=== PATIENT | male | born 1960 | race Caucasian/White ===

== ENCOUNTER 2017-06-25 06:25 | Outpatient (CLI) | payer OTHER ==
[~2017-06-25] VITALS: Ht 185.4 cm; Wt 90.7 kg
[~2017-06-25 06:25] MED LIST: CPR500T PO; CRS350T PO; METH2.5T PO; METH4TAB PO; NAPR250T PO
[2017-06-25] MEDS ORDERED: NAPR500T4 PO (13:08)
[2017-06-25] MEDS ORDERED: ATOR40TA70 PO (13:08)
[2017-06-25] MEDS ORDERED: OXYC-197 PO (13:08)
[2017-06-25] MEDS ORDERED: TADA10TA PO (13:08)
== END 2017-06-25 13:13 ==
LOC: PREOP 06:25
PROVIDERS: ATTEND Surgery
DX: Z01.818 Encounter for other preprocedural examination (principal); Z12.11 Encounter for screening for malignant neoplasm of colon

== ENCOUNTER 2017-06-29 09:51 | Day surgery (SDC) | payer OTHER ==
[~2017-06-29] VITALS: Ht 185.4 cm; Wt 90.7 kg
[~2017-06-29 09:51] MED LIST changes: +ATOR40TA70 PO; +NAPR500T4 PO; +OXYC-197 PO; +TADA10TA PO
--- OUTSIDE RECORDS SUMMARY | 2017-06-29 09:54 | XMS REPORT ---
Author Author YOKO LADD Organization [employer] Address Unknown Phone Unavailable Care Team Providers Care Die Maintenance Technician Name Role Phone YOKO LADD CP Unavailable Allergies No Known Allergies Problems Problem Type Condition ICD-9 Code Onset Dates Condition Status Problem Nondependent tobacco use disorder 305.1 Active Problem Unspecified arthropathy, site unspecified 716.90 Active Problem Unspecified backache 724.5 Active Problem Chronic hepatitis C with hepatic coma 070.44 Active Problem Pain in joint, site unspecified 719.40 Active Problem Rheumatoid arthritis 714.0 Active Medications No Known Medications Results No Known Results Summary Purpose [employer] Submission
--- OUTSIDE RECORDS SUMMARY | 2017-06-29 09:54 | XMS REPORT ---
Author Author YOKO LADD Organization [employer] Address Unknown Phone Unavailable Care Team Providers Care Kennel Manager Name Role Phone YOKO LADD CP Unavailable Allergies, Adverse Reactions, Alerts Substance Reaction Event Type N.K.D.A. Info Not Available Non Drug Allergy Problems Problem Type Condition Code Onset Dates Condition Status Assessment Chest wall pain R07.89 Active Assessment Rheumatoid arthritis involving multiple sites with positive rheumatoid factor M05.79 Active Problem Unspecified backache 724.5 Active Problem Nondependent tobacco use disorder 305.1 Active Problem Rheumatoid arthritis involving multiple sites with positive rheumatoid factor M05.79 Active Problem Rheumatoid arthritis 714.0 Active Problem Chronic hepatitis C with hepatic coma 070.44 Active Problem Unspecified arthropathy, site unspecified 716.90 Active Problem Pain in joint, site unspecified 719.40 Active Medications Medication Code System Code Instructions Start Date End Date Status Dosage Oxycodone-Acetaminophen [facility] [address]-47 5-325 MG Orally 3 times a day Aug 18, 2016 1 tablet Naprosyn [facility] [address]-39 500 MG Twice a day May 14, 2014 1 tablet by Oral route 2 times per day Methotrexate [facility] [address]-27 2.5 MG Orally weekly Aug 18, 2016 4 Procedures Procedure Coding System Code Date Office Visit, Est Pt., Level 3 CPT-4 39845 Aug 18, 2016 MEASURE BLOOD OXYGEN LEVEL CPT-4 93396 Aug 18, 2016 Vital Signs Date/Time: Aug 18, 2016 Cardiac Monitoring Heart Rate 64 bpm Weight 204.1 lbs Height 73 in BMI 26.92 Index Oximetry 98 % Blood Pressure Diastolic 80 mmHg Blood Pressure Systolic 126 mmHg Results No Known Results Summary Purpose [employer] Submission
[2017-06-29] MEDS ORDERED: LACTATED RINGERS 1,000 ML IV STA (10:00)
[2017-06-29 10:14] VITALS: BP 146/91
[2017-06-29] MEDS ORDERED: proPOfol 200 MG/20 ML (DIPRIVAN) VIAL IV ONE (12:44)
[2017-06-29] MEDS ORDERED: MIDAZOLAM 2 MG/2 ML (VERSED) VIAL ONE ×2 (12:45→13:16)
--- NOTE | 2017-06-29 13:12 | Progress Note-Pre Operative ---
Pre-Operative Progress Note H&P Reviewed The H&P was reviewed, patient examined and no changes noted. Date Seen by Provider: Jun 29, 2017 Time Seen by Provider: 13:12 Date H&P Reviewed: Jun 29, 2017 Time H&P Reviewed: 13:12 Pre-Operative Diagnosis: screening colonoscopy COOKIE SANZ DO Jun 29, 2017 13:12
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
--- NOTE | 2017-06-29 13:52 | Discharge Inst-Simple/Standard ---
Discharge Inst-Standard Patient Instructions/Follow Up Plan of Care/Instructions/FU: 2 weeks gonzalez Activity as Tolerated: Yes Discharge Diet: Regular Diet COOKIE SANZ DO Jun 29, 2017 13:52
[2017-06-29 14:05] VITALS: BP 131/88
[2017-06-29 14:34] VITALS: BP 134/84
[2017-06-29 14:35] VITALS: BP 134/84
--- NOTE | 2017-06-30 04:39 | OPERATIVE REPORT ---
DATE OF SERVICE: 06/29/2017 PREOPERATIVE DIAGNOSIS: Screening colonoscopy. POSTOPERATIVE DIAGNOSIS: Colon polyp, splenic flexure and rectal polyp. PROCEDURE: Colonoscopy with hot biopsy polypectomy. SURGEON: Cookie Torres DO ANESTHESIA: Per MDA. ESTIMATED BLOOD LOSS: None. COMPLICATIONS: None. INDICATIONS: The patient is a 57-year-old male due for screening colonoscopy. He understands risks and benefits of procedure and wished to proceed with procedure. Consent was signed in the chart. PROCEDURE: The patient was taken to the endoscopy suite, placed in left lateral recumbent position. Timeout was performed. Digital rectal exam was performed and there were no palpable polyps, mass or ulcerations. The scope was inserted in the rectum and advanced all the way to the cecum with minimal difficulty. Prep was adequate. Scope was then slowly retracted. No polyps, mass or ulcerations within the cecum, ascending and transverse colon except for the splenic flexure, a small polyp was present, for which hot biopsy polypectomy was performed. Scope was continued to be slowly retracted back. There were no polyps, masses or ulcerations within the descending colon and sigmoid colon. Within the rectum a small rectal polyp was present, for which hot biopsy polypectomy was performed. Scope was retroflexed noting no other pathology. Scope was returned to its normal position, slowly withdrawn until completely removed. The patient tolerated procedure well without any complications. He was taken to the recovery room in stable condition. RECOMMENDATIONS: The patient will need repeat colonoscopy in 5 years. If he has any problems prior to that, he should be reevaluated at that time. The patient will follow up in the office in approximately 2 weeks to discuss pathology results. Job ID: [id number] DocumentID: [id number] Dictated Date: 06/29/2017 13:54:44 Community Engagement Manager Date: 06/30/2017 04:38:53 Dictated By: COOKIE TORRES DO
== END 2017-06-29 14:35 | disposition home or self-care (01) ==
LOC: ENDO 09:51
PROVIDERS: ATTEND Surgery
DX: Z12.11 Encounter for screening for malignant neoplasm of colon; K62.1 Rectal polyp; D12.3 Benign neoplasm of transverse colon; F17.210 Nicotine dependence, cigarettes, uncomplicated
CPT/HCPCS: 88305

== ENCOUNTER 2019-07-29 19:41 | Emergency (ER) | payer OTHER ==
[~2019-07-29] VITALS: Ht 182.8 cm; Wt 88.6 kg
[~2019-07-29 19:41] MED LIST changes: +NAPR-915 PO; -NAPR500T4 PO; -OXYC-197 PO; +OXYC1TAB87 PO
[2019-07-29] MEDS ORDERED: NS IV 1000 ML 1,000 ML IV SCH (19:52)
[2019-07-29] MEDS ORDERED: TETANUS,DIPTH,PERTUSS P/F (BOOSTRIX) 0.5 ML VIAL IM ONE (20:00)
[2019-07-29] MEDS ORDERED: ceFAZolin INJECTION 1,000 MG in WATER (STERILE) FOR INJECTION 10 ML IV ONE (20:00)
[2019-07-29 20:08] LABS: HEMOGLOBIN 12.7 G/DL (13.3-17.7); MEAN PLATELET VOLUME 8.6 FL (7.4-10.4); RED CELL DISTRIBUTION WIDTH 14.3 % (10.0-14.5); WHITE BLOOD COUNT 10.3 10^3/uL (4.3-11.0)
--- NOTE | 2019-07-29 20:08 | NUR ---
Dr. Murcia in family room updating family on current pt status. Pt belongings given to pt , Courtney.
[2019-07-29 20:22] LABS: ALANINE AMINOTRANSFERASE 209 U/L (0-55); ALBUMIN 3.8 GM/DL (3.2-4.5); ALKALINE PHOSPHATASE 76 U/L (40-136); BILIRUBIN,DIRECT 0.2 MG/DL (0.0-0.3); BILIRUBIN,INDIRECT 0.4 MG/DL; BILIRUBIN,TOTAL 0.6 MG/DL (0.1-1.0); BUN/CREATININE RATIO 15; CALCIUM 8.3 MG/DL (8.5-10.1); CARBON DIOXIDE 20 MMOL/L (21-32); CHLORIDE 105 MMOL/L (98-107); CREATINE KINASE 221 U/L (30-200); CREATININE SERUM 0.97 MG/DL (0.60-1.30); GFR ESTIMATED > 60; GLUCOSE 105 MG/DL (70-105); PHOSPHORUS 3.4 MG/DL (2.3-4.7); POTASSIUM 3.4 MMOL/L (3.6-5.0); SODIUM 139 MMOL/L (135-145)
[2019-07-29 20:36] LABS: FIBRIN DEGRADATION PRODUCTS 12.33 UG/ML (0.00-0.49); INR 1.1 (0.8-1.4); PROTHROMBIN TIME PATIENT 14.8 SEC (12.2-14.7)
[2019-07-29 20:37] LABS: BILIRUBIN,URINE NEGATIVE (NEGATIVE); CLARITY,URINE CLEAR; COLOR,URINE YELLOW; GLUCOSE, URINE (UA) NEGATIVE (NEGATIVE); KETONES,URINE NEGATIVE (NEGATIVE); LEUKOCYTE ESTERASE ,URINE NEGATIVE (NEGATIVE); NITRITE,URINE NEGATIVE (NEGATIVE); PH,URINE 7 (5-9); PROTEIN,URINE 3+ (NEGATIVE)
[2019-07-29] MEDS ORDERED: fentaNYL INJECTION 100 MCG/2 ML AMP ONE (20:37)
[2019-07-29] MEDS ORDERED: fentaNYL INJECTION 100 MCG/2 ML AMP IVP STA (20:46)
[2019-07-29 20:47] LABS: BACTERIA,URINE NEGATIVE /HPF
[2019-07-29 20:56] LABS: AMPHETAMINE SCREEN, URINE NEGATIVE (NEGATIVE); BARBITURATE SCREEN URINE NEGATIVE (NEGATIVE); BENZODIAZEPINES SCREEN URINE NEGATIVE (NEGATIVE); CANNABINOID SCREEN, URINE NEGATIVE (NEGATIVE); COCAINE SCREEN URINE NEGATIVE (NEGATIVE); METHADONE STAT NEGATIVE (NEGATIVE); METHAMPHETAMINE SCREEN URINE S NEGATIVE (NEGATIVE); OPIATE SCREEN URINE NEGATIVE (NEGATIVE); OXYCODONE STAT NEGATIVE (NEGATIVE); PROPOXYPHENE STAT NEGATIVE (NEGATIVE); TRICYCLIC ANTIDEPRESSANTS SCRE NEGATIVE (NEGATIVE)
[2019-07-29] MEDS ORDERED: fentaNYL INJECTION 100 MCG/2 ML AMP IVP ONE (21:00)
--- NOTE | 2019-07-29 21:01 | NUR ---
Pt report called to BC Meneses @ [facility]. Upon arrival pt to room [facility].
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
[2019-07-29 21:25] VITALS: BP 135/93
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
[2019-07-30] MEDS ORDERED: IOHEXOL 350 MG/ML 100 ML (OMNIPAQUE 350) VIAL IV ONE (08:30)
[2019-07-30] MEDS ORDERED: NS 100 ML (IVPB) BAG IV ONE (08:30)
[2019-08-14] MEDS ORDERED: OXC5T PO (09:00)
[2019-08-14] MEDS ORDERED: SENN-20 PO (09:00)
--- OUTSIDE RECORDS SUMMARY | 2019-08-21 18:37 | XMS REPORT ---
Author Author YOKO LADD POS Organization [facility] SP Address [address] [place] [address] SP Care Team Providers Care Chairman And Ceo Name Role Phone POS YOKO LADD Unavailable SP PROBLEMS Type Condition ICD9-CM Code BUH65-RH Code Onset Dates Condition S tatus SNOMED POS Problem Erectile dysfunction due to diseases classified elsewhere N52.1 POS [id number] SP Problem Mixed hyperlipidemia E78.2 Active [id number] SP Problem Rheumatoid arthritis involvi ng multiple sites with positive rheumatoid SP M05.79 Active [id number] SP Problem Cigarette nicotine dependence without complication F17.210 Active SP ALLERGIES No Information ENCOUNTERS Encounter Location Date Diagnosis POS [facility] [address] [id number] [address] [place] [id number] SP May, SP [facility] [address] [facility] [id number] [address] [place] [id number] SP May, Rheumatoid arthritis involvi ng multiple sites with positive SP factor M05.79 and Erectile dysfunction due to diseases classified elsewhere N52.1 [facility] [address] [id number] [address] [place] [address] SP Oct, Chest pain R07.9 SP [facility] [address] [id number] [address] [place] [address] SP Oct, Chest wall pain R07.89 SP [facility] [address] [id number] [address] [place] [id number] SP Apr, Rheumatoid arthritis involvi ng multiple sites with positive SP factor M05.79 and Mixed hyperlipidemia E78.2 [facility] [address] [id number] [address] [place] [phone] SP May, Mixed hyperlipidemia E78.2 SP [facility] [address] [facility] [id number] [address] [place] [address] SP May, Mixed hyperlipidemia E78.2 ; Rheumatoid arthritis involving SP sites with positive rheumatoid factor M05.79 ; Erectile dysfunction due to diseases classified elsewhere N52.1 ; Routine adult health maintenance Z00.00 and Cigarette nicotine dependence without complication F17.210 [facility] [address] [facility] [id number] [address] [place] [phone] SP Aug, SP [facility] [address] [facility] [id number] [address] [place] [id number] SP Aug, Chest wall pain R07.89 and R heumatoid arthritis involving SP sites with positive rheumatoid factor M05.79 [facility] [address] [facility] [id number] [address] [place] [id number] SP Jun, Rheumatoid arthritis 714.0 a nd Chronic hepatitis C with hepatic SP 070.44 [facility] [address] [facility] [id number] [address] [place] [address] SP Jun, SP [facility] [address] [facility] [id number] [address] [place] [phone] SP Jan, SP [facility] [address] [facility] [id number] [address] [place] [phone] SP Jan, SP [facility] [address] [facility] [id number] [address] [place] [phone] SP Sep, SP [facility] [address] [facility] [id number] [address] [place] [phone] SP Sep, SP [facility] [address] [facility] [id number] [address] [place] [phone] SP Sep, SP [facility] [address] [facility] [id number] [address] [place] [phone] SP Sep, SP [facility] [address] [facility] [id number] [address] [place] [phone] SP May, SP [facility] [address] [id number] [address] [place] [address], [place] [address] SP May, SP [facility] [address] [id number] [address] [place] [address], [place] [address] SP Mar, SP [facility] [address] [id number] [address] [place] [address], [place] [address] SP Mar, SP [facility] [address] [id number] [address] [place] [address], [place] [address] SP Mar, SP [facility] [address] [id number] [address] [place] [address], [place] [address] SP February, SP [facility] [address] [id number] [address] [place] [address], [place] [address] SP February, SP [facility] [address] [id number] [address] [place] [address], [place] [address] SP February, SP [facility] [address] [id number] [address] [place] [address], [place] [address] SP February, SP [facility] [address] [id number] [address] [place] [address], [place] [address] SP Oct, SP [facility] [address] [id number] [address] [place] [address], [place] [address] SP Oct, SP [facility] [address] [id number] [address] [place] [address], [place] [address] SP Sep, SP [facility] [address] [id number] [address] [place] [address], [place] [address] SP Sep, SP [facility] [address] [id number] [address] [place] [address], [place] [address] SP Jul, SP [facility] [address] [id number] [address] [place] [address], [place] [address] SP Jul, SP [facility] [address] [id number] [address] [place] [address], [place] [id number] SP Jul, SP [facility] [address] [id number] [address] [place] [address], [place] [address] SP Jul, SP [facility] [address] [id number] [address] [place] [address], [place] [address] SP May, SP [facility] [address] [id number] [address] [place] [address], [place] [address] SP May, SP [facility] [address] [id number] [address] [place] [address], [place] [address] SP May, SP [facility] [address] [id number] [address] [place] [address], [place] [address] SP May, SP [facility] [address] [id number] [address] [place] [address], [place] [address] SP May, SP [facility] [address] [id number] [address] [place] [address], [place] [address] SP Mar, SP [facility] [address] [id number] [address] [place] [address], [place] [address] SP Mar, SP [facility] [address] [id number] [address] [place] [address], [place] [address] SP Dec, SP [facility] [address] [id number] [address] [place] [address], [place] [address] SP Dec, SP [facility] [address] [id number] [address] [place] [address], [place] [address] SP Dec, SP [facility] [address] [id number] [address] [place] [address], [place] [address] SP Dec, SP [facility] [address] [id number] [address] [place] [address], [place] [address] SP Nov, SP [facility] [address] [id number] [address] [place] [address], [place] [address] SP Nov, SP [facility] [address] [id number] [address] [place] [address], [place] [address] SP Nov, 2012 SP [facility] [address] [id number] [address] [place] [address], [place] [address] SP 12 Nov, 2012 SP [facility] [address] [id number] [address] [place] [address], [place] [address] SP 14 Oct, 2012 SP [facility] [address] [id number] [address] [place] [address], [place] [address] SP Oct, SP [facility] [address] [id number] [address] [place] [address], [place] [address] SP Sep, SP [facility] [address] [id number] [address] [place] [address], [place] [address] SP Sep, SP [facility] [address] [id number] [address] [place] [address], [place] [address] SP Sep, SP [facility] [address] [id number] [address] [place] [address], [place] [address] SP Sep, SP [facility] [address] [id number] [address] [place] [address], [place] [address] SP Sep, SP [facility] [address] [id number] [address] [place] [address], [place] [address] SP Sep, SP [facility] [address] [id number] [address] [place] [address], [place] [address] SP Sep, SP [facility] [address] [id number] [address] [place] [address], [place] [address] SP Sep, SP [facility] [address] [id number] [address] [place] [address], [place] [address] SP Sep, SP [facility] [address] [id number] [address] [place] [address], [place] [address] SP Sep, SP [facility] [address] [id number] [address] [place] [address], [place] [address] SP Sep, SP [facility] [address] [id number] [address] [place] [address], [place] [address] SP Sep, SP [facility] [address] [id number] [address] [place] [address], [place] [address] SP Aug, SP [facility] [address] [id number] [address] [place] [address], [place] [address] SP Aug, SP [facility] [address] [id number] [address] [place] [address], [place] [address] SP Aug, SP [facility] [address] [id number] [address] [place] [address], [place] [address] SP Aug, SP [facility] [address] [id number] [address] [place] [address], [place] [address] SP Aug, SP [facility] [address] [id number] [address] [place] [address], [place] [address] SP Jul, SP [facility] [address] [id number] [address] [place] [address], [place] [address] SP Jul, SP [facility] [address] [id number] [address] [place] [address], [place] [address] SP Jul, SP [facility] [address] [id number] [address] [place] [address], [place] [address] SP Jul, SP [facility] [address] [id number] [address] [place] [address], [place] [address] SP Jul, SP [facility] [address] [id number] [address] [place] [phone] SP Jul, SP [facility] [address] [id number] [address] [place] [address], [place] [address] SP Jun, SP [facility] [address] [id number] [address] [place] [address], [place] [address] SP May, SP [facility] [address] [id number] [address] [place] [address], [place] [address] SP May, SP [facility] [address] [id number] [facility] [address] SP Apr, SP [facility] [address] [id number] [address] [place] [address], [place] [address] SP Apr, SP [facility] [address] [id number] [address] [place] [address], [place] [address] SP Apr, SP [facility] [address] [id number] [address] [place] [address], [place] [address] SP Apr, SP [facility] [address] [id number] [address] [place] [address], [place] [address] SP Mar, SP [facility] [address] [id number] [address] [place] [address], [place] [address] SP Mar, SP [facility] [address] [id number] [address] [place] [address], [place] [address] SP February, SP [facility] [address] [id number] [address] [place] [address], [place] [address] SP February, SP [facility] [address] [id number] [address] [place] [address], [place] [address] SP February, SP [facility] [address] [id number] [address] [place] [address], [place] [address] SP Jan, SP [facility] [address] [id number] [address] [place] [address], [place] [address] SP Jan, SP [facility] [address] [id number] [address] [place] [address], [place] [address] SP Dec, SP [facility] [address] [id number] [address] [place] [address], [place] [address] SP Dec, SP [facility] [address] [id number] [address] [place] [address], [place] [address] SP Dec, SP [facility] [address] [id number] [address] [place] [address], [place] [address] SP Dec, SP [facility] [address] [id number] [address] [place] [address], [place] [address] SP Nov, SP [facility] [address] [id number] [address] [place] [address], [place] [address] SP Nov, SP [facility] [address] [id number] [address] [place] [address], [place] [address] SP Oct, SP [facility] [address] [id number] [address] [place] [address], [place] [address] SP Oct, SP [facility] [address] [id number] [address] [place] [address], [place] [address] SP Oct, SP [facility] [address] [id number] [address] [place] [address], [place] [address] SP Oct, SP [facility] [address] [id number] [address] [place] [address], [place] [address] SP Oct, SP [facility] [address] [id number] [address] [place] [address], [place] [address] SP Oct, SP [facility] [address] [id number] [address] [place] [address], [place] [address] SP Oct, SP [facility] [address] [id number] [address] [place] [address], [place] [address] SP Oct, SP [facility] [address] [id number] [address] [place] [address], [place] [address] SP Oct, SP [facility] [address] [id number] [address] [place] [address], [place] [address] SP Sep, SP [facility] [address] [id number] [address] [place] [address], [place] [address] SP Sep, SP [facility] [address] [id number] [address] [place] [address], [place] [address] SP Sep, SP [facility] [address] [id number] [address] [place] [address] SP Apr, SP [facility] [address] [facility] [id number] [address] [address] SP February, SP [facility] [address] [facility] [id number] [address] [place] [id number] SP February, SP IMMUNIZATIONS No Known Immunizations SOCIAL HISTORY Never Assessed REASON FOR VISIT PLAN OF CARE VITAL SIGNS Height 73 in 2014-05-14 POS Weight 190.6 lbs 2014-05-14 POS Temperature 98.6 degrees Fahrenheit 2014-05-14 POS Heart Rate 88 bpm 2014-05-14 POS Respiratory Rate 18 2014-05-14 POS Blood pressure systolic 126 mmHg 2014-05-14 POS Blood pressure diastolic 78 mmHg 2014-05-14 POS MEDICATIONS Unknown Medications RESULTS No Results PROCEDURES No Known procedures INSTRUCTIONS MEDICATIONS ADMINISTERED No Known Medications MEDICAL (GENERAL) HISTORY Type Description Date POS Medical History chronic pain SP Medical History Arthritis SP Surgical History No know Surgical history SP Hospitalization History liver abscess SP
--- OUTSIDE RECORDS SUMMARY | 2019-08-21 18:37 | XMS REPORT ---
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 Name Role Phone POS CHAD JENKINS Unavailable SP PROBLEMS Type Condition ICD9-CM Code [id number] Code Onset Dates Condition S tatus SNOMED POS Problem Erectile dysfunction due to diseases classified elsewhere N52.1 POS [id number] SP Problem Mixed hyperlipidemia E78.2 Active [id number] SP Problem Rheumatoid arthritis involvi ng multiple sites with positive rheumatoid SP M05.79 Active [id number] SP Problem Cigarette nicotine dependence without complication F17.210 Active SP ALLERGIES No Information ENCOUNTERS Encounter Location Date Diagnosis POS [facility] [address] [facility] [id number] [address] [place] [id number] SP May, SP [facility] [address] [facility] [id number] [address] [place] [address] SP Oct, Chest pain R07.9 SP [facility] [address] [facility] [id number] [address] [place] [address] SP Oct, Chest wall pain R07.89 SP [facility] [address] [facility] [id number] [address] [place] [address] SP Apr, Rheumatoid arthritis involvi ng multiple sites with positive SP factor M05.79 and Mixed hyperlipidemia E78.2 [facility] [address] [facility] [id number] [address] [place] [id number] SP May, Mixed hyperlipidemia E78.2 SP [facility] [address] [facility] [id number] [address] [place] [address] SP May, Mixed hyperlipidemia E78.2 ; Rheumatoid arthritis involving SP sites with positive rheumatoid factor M05.79 ; Erectile dysfunction due to diseases classified elsewhere N52.1 ; Routine adult health maintenance Z00.00 and Cigarette nicotine dependence without complication F17.210 [facility] [address] [facility] [id number] [address] [place] [id number] SP Aug, SP [facility] [address] [facility] [id number] [address] [place] [address] SP Aug, Chest wall pain R07.89 and R heumatoid arthritis involving SP sites with positive rheumatoid factor M05.79 [facility] [address] [facility] [id number] [address] [place] [address] SP Jun, Rheumatoid arthritis 714.0 a nd Chronic hepatitis C with hepatic SP 070.44 [facility] [address] [facility] [id number] [address] [place] [id number] SP Jun, SP [facility] [address] [facility] [id number] [address] [place] [address] SP 14 Jan, 2015 SP [facility] [address] [facility] [id number] [address] [place] [address] SP Jan, SP [facility] [address] [facility] [id number] [address] [place] [address] SP Sep, SP [facility] [address] [facility] [id number] [address] [place] [address] SP Sep, SP [facility] [address] [facility] [id number] [address] [place] [phone] SP Sep, SP [facility] [address] [facility] [id number] [address] [place] [address] SP Sep, SP [facility] [address] [facility] [id number] [address] [place] [phone] SP May, SP [facility] [address] [facility] [id number] [address] [place] [phone] SP May, SP [facility] [address] [facility] [id number] [address] [place] [address] SP Mar, SP [facility] [address] [id number] [address] [place] [address], [place] [address] SP Mar, SP [facility] [address] [id number] [address] [place] [address], [place] [address] SP Mar, SP [facility] [address] [id number] [address] [place] [address], [place] [address] SP February, SP [facility] [address] [id number] [address] [place] [address], [place] [address] SP February, SP [facility] [address] [id number] [address] [place] [address], [place] [address] SP February, SP [facility] [address] [id number] [address] [place] [address], [place] [address] SP February, SP [facility] [address] [id number] [address] [place] [address], [place] [address] SP Oct, SP [facility] [address] [id number] [address] [place] [address], [place] [address] SP Oct, SP [facility] [address] [id number] [address] [place] [address], [place] [address] SP Sep, SP [facility] [address] [id number] [address] [place] [address], [place] [address] SP Sep, SP [facility] [address] [id number] [address] [place] [address], [place] [address] SP Jul, SP [facility] [address] [id number] [address] [place] [address], [place] [address] SP Jul, SP [facility] [address] [id number] [address] [place] [address], [place] [address] SP Jul, SP [facility] [address] [id number] [address] [place] [address], [place] [address] SP Jul, SP [facility] [address] [id number] [address] [place] [address], [place] [address] SP May, SP [facility] [address] [id number] [address] [place] [address], [place] [address] SP May, SP [facility] [address] [id number] [address] [place] [address], [place] [address] SP May, SP [facility] [address] [id number] [address] [place] [address], [place] [address] SP May, SP [facility] [address] [id number] [address] [place] [address], [place] [address] SP May, SP [facility] [address] [id number] [address] [place] [address], [place] [address] SP Mar, SP [facility] [address] [id number] [address] [place] [address], [place] [address] SP Mar, SP [facility] [address] [id number] [address] [place] [address], [place] [address] SP Dec, SP [facility] [address] [id number] [address] [place] [address], [place] [address] SP Dec, SP [facility] [address] [id number] [address] [place] [address], [place] [address] SP Dec, SP [facility] [address] [id number] [address] [place] [address], [place] [address] SP Dec, SP [facility] [address] [id number] [address] [place] [address], [place] [address] SP Nov, SP [facility] [address] [id number] [address] [place] [address], [place] [address] SP Nov, SP [facility] [address] [id number] [address] [place] [address], [place] [address] SP Nov, SP [facility] [address] [id number] [address] [place] [address], [place] [address] SP Nov, SP [facility] [address] [id number] [address] [place] [address], [place] [address] SP 14 Oct, 2012 SP [facility] [address] [id number] [address] [place] [address], [place] [address] SP Oct, SP [facility] [address] [id number] [address] [place] [address], [place] [address] SP Sep, SP [facility] [address] [id number] [address] [place] [address], [place] [address] SP 18 Sep, 2012 SP [facility] [address] [id number] [address] [place] [address], [place] [address] SP 17 Sep, 2012 SP [facility] [address] [id number] [address] [place] [address], [place] [address] SP 15 Sep, 2012 SP [facility] [address] [id number] [address] [place] [address], [place] [address] SP Sep, SP [facility] [address] [id number] [address] [place] [address], [place] [address] SP Sep, SP [facility] [address] [id number] [address] [place] [address], [place] [address] SP Sep, SP [facility] [address] [id number] [address] [place] [address], [place] [address] SP Sep, SP [facility] [address] [id number] [address] [place] [address], [place] [address] SP Sep, SP [facility] [address] [id number] [address] [place] [address], [place] [address] SP Sep, SP [facility] [address] [id number] [address] [place] [address], [place] [address] SP Sep, SP [facility] [address] [id number] [address] [place] [address], [place] [address] SP Sep, SP [facility] [address] [id number] [address] [place] [address], [place] [address] SP Aug, SP [facility] [address] [id number] [address] [place] [address], [place] [address] SP Aug, SP [facility] [address] [id number] [address] [place] [address], [place] [address] SP Aug, SP [facility] [address] [id number] [address] [place] [address], [place] [address] SP Aug, SP [facility] [address] [id number] [address] [place] [address], [place] [address] SP Aug, SP [facility] [address] [id number] [address] [place] [address], [place] [address] SP Jul, SP [facility] [address] [id number] [address] [place] [address], [place] [address] SP Jul, SP [facility] [address] [id number] [address] [place] [address], [place] [address] SP Jul, SP [facility] [address] [id number] [address] [place] [address], [place] [address] SP Jul, SP [facility] [address] [id number] [address] [place] [address], [place] [address] SP Jul, SP [facility] [address] [id number] [address] [place] [address], [place] [address] SP Jul, SP [facility] [address] [id number] [address] [place] [address], [place] [address] SP Jun, SP [facility] [address] [id number] [address] [place] [address], [place] [address] SP May, SP [facility] [address] [id number] [address] [place] [address], [place] [address] SP May, SP [facility] [address] [id number] [address] [place] [address], [place] [address] SP Apr, SP [facility] [address] [id number] [address] [place] [address], [place] [address] SP Apr, SP [facility] [address] [id number] [address] [place] [address], [place] [address] SP Apr, SP [facility] [address] [id number] [address] [place] [address], [place] [address] SP Apr, SP [facility] [address] [id number] [address] [place] [address], [place] [address] SP Mar, SP [facility] [address] [id number] [address] [place] [address], [place] [address] SP Mar, SP [facility] [address] [id number] [address] [place] [address], [place] [address] SP February, SP [facility] [address] [id number] [address] [place] [address], [place] [address] SP February, SP [facility] [address] [id number] [address] [place] [address], [place] [address] SP February, SP [facility] [address] [id number] [address] [place] [address], [place] [address] SP Jan, SP [facility] [address] [id number] [address] [place] [address], [place] [address] SP Jan, SP [facility] [address] [id number] [address] [place] [address], [place] [address] SP Dec, SP [facility] [address] [id number] [address] [place] [address], [place] [address] SP Dec, SP [facility] [address] [id number] [address] [place] [address], [place] [address] SP Dec, SP [facility] [address] [id number] [address] [place] [address], [place] [address] SP Dec, SP [facility] [address] [id number] [address] [place] [address], [place] [address] SP Nov, SP [facility] [address] [id number] [address] [place] [address], [place] [address] SP Nov, SP [facility] [address] [id number] [address] [place] [address], [place] [address] SP Oct, SP [facility] [address] [id number] [address] [place] [address], [place] [address] SP Oct, SP [facility] [address] [id number] [address] [place] [address], [place] [address] SP Oct, SP [facility] [address] [id number] [address] [place] [address], [place] [address] SP Oct, SP [facility] [address] [id number] [address] [place] [address], [place] [address] SP Oct, SP [facility] [address] [id number] [address] [place] [address], [place] [address] SP Oct, SP [facility] [address] [id number] [address] [place] [address], [place] [address] SP Oct, SP [facility] [address] [id number] [address] [place] [address], [place] [address] SP Oct, SP [facility] [address] [id number] [address] [place] [address], [place] [address] SP Oct, SP [facility] [address] [id number] [address] [place] [address], [place] [address] SP Sep, SP [facility] [address] [id number] [address] [place] [address], [place] [address] SP Sep, SP [facility] [address] [id number] [address] [place] [address], [place] [address] SP Sep, SP [facility] [address] [id number] [address] [place] [address], [place] [address] SP Apr, SP [facility] [address] [id number] [address] [place] [address], [place] [address] SP February, SP [facility] [address] [facility] [id number] [address] [place] [address] SP February, SP IMMUNIZATIONS No Known Immunizations SOCIAL HISTORY Never Assessed REASON FOR VISIT PLAN OF CARE VITAL SIGNS MEDICATIONS Unknown Medications RESULTS No Results PROCEDURES No Known procedures INSTRUCTIONS MEDICATIONS ADMINISTERED No Known Medications MEDICAL (GENERAL) HISTORY Type Description Date POS Medical History chronic pain SP Medical History Arthritis SP Surgical History No know Surgical history SP Hospitalization History liver abscess SP
--- OUTSIDE RECORDS SUMMARY | 2019-08-21 18:37 | XMS REPORT ---
Author Author CHAD JENKINS POS Organization [facility] SP Address [address] [place] [address] SP Care Team Providers Care District Representative Name Role Phone POS CHAD JENKINS Unavailable SP PROBLEMS Type Condition ICD9-CM Code [id number] Code Onset Dates Condition S tatus SNOMED POS Problem Erectile dysfunction due to diseases classified elsewhere N52.1 POS [id number] SP Problem Mixed hyperlipidemia E78.2 Active [id number] SP Problem Rheumatoid arthritis involvi ng multiple sites with positive rheumatoid SP M05.79 Active [id number] SP Problem Cigarette nicotine dependence without complication F17.210 Active SP ALLERGIES No Information ENCOUNTERS Encounter Location Date Diagnosis POS [facility] [address] [facility] [id number] [address] [place] [id number] SP May, SP [facility] [address] [facility] [id number] [address] [place] [address] SP Oct, Chest pain R07.9 SP [facility] [address] [facility] [id number] [address] [place] [address] SP Oct, Chest wall pain R07.89 SP [facility] [address] [facility] [id number] [address] [place] [id number] SP Apr, Rheumatoid arthritis involvi ng multiple sites with positive SP factor M05.79 and Mixed hyperlipidemia E78.2 [facility] [address] [facility] [id number] [address] [place] [id number] SP May, Mixed hyperlipidemia E78.2 SP [facility] [address] [facility] [id number] [address] [place] [id number] SP May, Mixed hyperlipidemia E78.2 ; Rheumatoid arthritis involving SP sites with positive rheumatoid factor M05.79 ; Erectile dysfunction due to diseases classified elsewhere N52.1 ; Routine adult health maintenance Z00.00 and Cigarette nicotine dependence without complication F17.210 [facility] [address] [facility] [id number] [address] [place] [id number] SP Aug, SP [facility] [address] [facility] [id number] [address] [place] [id number] SP Aug, Chest wall pain R07.89 and R heumatoid arthritis involving SP sites with positive rheumatoid factor M05.79 [facility] [address] [facility] [id number] [address] [place] [id number] SP Jun, Rheumatoid arthritis 714.0 a nd Chronic hepatitis C with hepatic SP 070.44 [facility] [address] [facility] [id number] [address] [place] [id number] SP Jun, SP [facility] [address] [facility] [id number] [address] [place] [id number] SP 14 Jan, 2015 SP [facility] [address] [facility] [id number] [address] [place] [id number] SP Jan, SP [facility] [address] [facility] [id number] [address] [place] [phone] SP Sep, SP [facility] [address] [facility] [id number] [address] [place] [phone] SP Sep, SP [facility] [address] [facility] [id number] [address] [place] [phone] SP Sep, SP [facility] [address] [facility] [id number] [address] [place] [phone] SP Sep, SP [facility] [address] [facility] [id number] [address] [place] [phone] SP May, SP [facility] [address] [facility] [id number] [address] [place] [id number] SP May, SP [facility] [address] [facility] [id number] [address] [place] [id number] SP Mar, SP [facility] [address] [id number] [address] [place] [address], [place] [address] SP Mar, SP [facility] [address] [id number] [address] [place] [address], [place] [address] SP Mar, SP [facility] [address] [id number] [address] [place] [address], [place] [address] SP February, SP [facility] [address] [id number] [address] [place] [address], [place] [address] SP February, SP [facility] [address] [id number] [address] [place] [address], [place] [address] SP February, SP [facility] [address] [id number] [address] [place] [address], [place] [address] SP February, SP [facility] [address] [id number] [address] [place] [address], [place] [address] SP Oct, SP [facility] [address] [id number] [address] [place] [address], [place] [address] SP Oct, SP [facility] [address] [id number] [address] [place] [address], [place] [address] SP Sep, SP [facility] [address] [id number] [address] [place] [address], [place] [address] SP Sep, SP [facility] [address] [id number] [address] [place] [address], [place] [address] SP Jul, SP [facility] [address] [id number] [address] [place] [address], [place] [address] SP Jul, SP [facility] [address] [id number] [address] [place] [address], [place] [address] SP Jul, SP [facility] [address] [id number] [address] [place] [address], [place] [address] SP Jul, SP [facility] [address] [id number] [address] [place] [address], [place] [address] SP May, SP [facility] [address] [id number] [address] [place] [address], [place] [address] SP May, SP [facility] [address] [id number] [address] [place] [address], [place] [address] SP May, SP [facility] [address] [id number] [address] [place] [address], [place] [address] SP May, SP [facility] [address] [id number] [address] [place] [address], [place] [address] SP May, SP [facility] [address] [id number] [address] [place] [address], [place] [address] SP Mar, SP [facility] [address] [id number] [address] [place] [address], [place] [address] SP Mar, SP [facility] [address] [id number] [address] [place] [address], [place] [address] SP Dec, SP [facility] [address] [id number] [address] [place] [address], [place] [address] SP Dec, SP [facility] [address] [id number] [address] [place] [address], [place] [address] SP Dec, SP [facility] [address] [id number] [address] [place] [address], [place] [address] SP Dec, SP [facility] [address] [id number] [address] [place] [address], [place] [address] SP Nov, SP [facility] [address] [id number] [address] [place] [address], [place] [address] SP Nov, SP [facility] [address] [id number] [address] [place] [address], [place] [address] SP Nov, SP [facility] [address] [id number] [address] [place] [address], [place] [address] SP Nov, SP [facility] [address] [id number] [address] [place] [address], [place] [address] SP 14 Oct, 2012 SP [facility] [address] [id number] [address] [place] [address], [place] [address] SP Oct, SP [facility] [address] [id number] [address] [place] [address], [place] [address] SP Sep, SP [facility] [address] [id number] [address] [place] [address], [place] [address] SP 18 Sep, 2012 SP [facility] [address] [id number] [address] [place] [address], [place] [address] SP 17 Sep, 2012 SP [facility] [address] [id number] [address] [place] [address], [place] [address] SP 15 Sep, 2012 SP [facility] [address] [id number] [address] [place] [address], [place] [address] SP Sep, SP [facility] [address] [id number] [address] [place] [address], [place] [address] SP Sep, SP [facility] [address] [id number] [address] [place] [address], [place] [address] SP Sep, SP [facility] [address] [id number] [address] [place] [address], [place] [address] SP Sep, SP [facility] [address] [id number] [address] [place] [address], [place] [address] SP Sep, SP [facility] [address] [id number] [address] [place] [address], [place] [address] SP Sep, SP [facility] [address] [id number] [address] [place] [address], [place] [address] SP Sep, SP [facility] [address] [id number] [address] [place] [address], [place] [address] SP Sep, SP [facility] [address] [id number] [address] [place] [address], [place] [address] SP Aug, SP [facility] [address] [id number] [address] [place] [address], [place] [address] SP Aug, SP [facility] [address] [id number] [address] [place] [address], [place] [address] SP Aug, SP [facility] [address] [id number] [address] [place] [address], [place] [address] SP Aug, SP [facility] [address] [id number] [address] [place] [address], [place] [address] SP Aug, SP [facility] [address] [id number] [address] [place] [address], [place] [address] SP Jul, SP [facility] [address] [id number] [address] [place] [address], [place] [address] SP Jul, SP [facility] [address] [id number] [address] [place] [address], [place] [address] SP Jul, SP [facility] [address] [id number] [address] [place] [address], [place] [address] SP Jul, SP [facility] [address] [id number] [address] [place] [address], [place] [address] SP Jul, SP [facility] [address] [id number] [address] [place] [address], [place] [address] SP Jul, SP [facility] [address] [id number] [address] [place] [address], [place] [address] SP Jun, SP [facility] [address] [id number] [address] [place] [address], [place] [address] SP May, SP [facility] [address] [id number] [address] [place] [address], [place] [address] SP May, SP [facility] [address] [id number] [address] [place] [address], [place] [address] SP Apr, SP [facility] [address] [id number] [address] [place] [address], [place] [address] SP Apr, SP [facility] [address] [id number] [address] [place] [address], [place] [address] SP Apr, SP [facility] [address] [id number] [address] [place] [address], [place] [address] SP Apr, SP [facility] [address] [id number] [address] [place] [address], [place] [address] SP Mar, SP [facility] [address] [id number] [address] [place] [address], [place] [address] SP Mar, SP [facility] [address] [id number] [address] [place] [address], [place] [address] SP February, SP [facility] [address] [id number] [address] [place] [address], [place] [address] SP February, SP [facility] [address] [id number] [address] [place] [address], [place] [address] SP February, SP [facility] [address] [id number] [address] [place] [address], [place] [address] SP Jan, SP [facility] [address] [id number] [address] [place] [address], [place] [address] SP Jan, SP [facility] [address] [id number] [address] [place] [address], [place] [address] SP Dec, SP [facility] [address] [id number] [address] [place] [address], [place] [address] SP Dec, SP [facility] [address] [id number] [address] [place] [address], [place] [address] SP Dec, SP [facility] [address] [id number] [address] [place] [address], [place] [address] SP Dec, SP [facility] [address] [id number] [address] [place] [address], [place] [address] SP Nov, SP [facility] [address] [id number] [address] [place] [address], [place] [address] SP Nov, SP [facility] [address] [id number] [address] [place] [address], [place] [address] SP Oct, SP [facility] [address] [id number] [address] [place] [address], [place] [address] SP Oct, SP [facility] [address] [id number] [address] [place] [address], [place] [address] SP Oct, SP [facility] [address] [id number] [address] [place] [address], [place] [address] SP Oct, SP [facility] [address] [id number] [address] [place] [address], [place] [address] SP Oct, SP [facility] [address] [id number] [address] [place] [address], [place] [address] SP Oct, SP [facility] [address] [id number] [address] [place] [address], [place] [address] SP Oct, SP [facility] [address] [id number] [address] [place] [address], [place] [address] SP Oct, SP [facility] [address] [id number] [address] [place] [address], [place] [address] SP Oct, SP [facility] [address] [id number] [address] [place] [address], [place] [address] SP Sep, SP [facility] [address] [id number] [address] [place] [address], [place] [address] SP Sep, SP [facility] [address] [id number] [address] [place] [address], [place] [address] SP Sep, SP [facility] [address] [id number] [address] [place] [address], [place] [address] SP Apr, SP [facility] [address] [id number] [address] [place] [address], [place] [address] SP February, SP [facility] [address] [facility] [id number] [address] [place] [address] SP February, SP IMMUNIZATIONS No Known Immunizations [...]
--- OUTSIDE RECORDS SUMMARY | 2019-08-21 18:38 | XMS REPORT ---
Author Author Migration, Doctor POS Organization [facility] SP Address Unknown SP Phone Unavailable SP Care Team Providers Care Monotype Machinist Name Role Phone POS Migration, Doctor Unavailable Unavailable SP PROBLEMS Type Condition ICD9-CM Code ADS83-TY Code Onset Dates Condition S tatus SNOMED POS Problem Erectile dysfunction due to diseases classified elsewhere N52.1 POS [id number] SP Problem Mixed hyperlipidemia E78.2 Active [id number] SP Problem Rheumatoid arthritis involvi ng multiple sites with positive rheumatoid SP M05.79 Active [id number] SP Problem Cigarette nicotine dependence without complication F17.210 Active SP ALLERGIES No Information ENCOUNTERS Encounter Location Date Diagnosis POS [facility] [address] [facility] [id number] [address] [place] [address] SP Oct, Chest pain R07.9 SP [facility] [address] [id number] [address] [place] [address] SP Oct, Chest wall pain R07.89 SP [facility] [address] [facility] [id number] [address] [place] [phone] SP Apr, Rheumatoid arthritis involvi ng multiple sites with positive SP factor M05.79 and Mixed hyperlipidemia E78.2 [facility] [address] [facility] [id number] [address] [place] [phone] SP May, Mixed hyperlipidemia E78.2 SP [facility] [address] [id number] [address] [place] [phone] SP May, Mixed hyperlipidemia E78.2 ; Rheumatoid arthritis involving SP sites with positive rheumatoid factor M05.79 ; Erectile dysfunction due to diseases classified elsewhere N52.1 ; Routine adult health maintenance Z00.00 and Cigarette nicotine dependence without complication F17.210 [facility] [address] [facility] [id number] [address] [place] [phone] SP Aug, SP [facility] [address] [facility] [id number] [address] [place] [phone] SP Aug, Chest wall pain R07.89 and R heumatoid arthritis involving SP sites with positive rheumatoid factor M05.79 [facility] [address] [facility] [id number] [address] [place] [phone] SP Jun, Rheumatoid arthritis 714.0 a nd Chronic hepatitis C with hepatic SP 070.44 [facility] [address] [facility] [id number] [address] [place] [phone] SP Jun, SP [facility] [address] [facility] [id number] [address] [place] [phone] SP 14 Jan, 2015 SP [facility] [address] [facility] [id number] [address] [place] [phone] SP Jan, SP [facility] [address] [facility] [id number] [address] [place] [phone] SP Sep, SP [facility] [address] [facility] [id number] [address] [place] [phone] SP Sep, SP [facility] [address] [facility] [id number] [address] [place] [phone] SP Sep, SP [facility] [address] [facility] [id number] [address] [place] [phone] SP Sep, SP [facility] [address] [facility] [id number] [address] [place] [phone] SP May, SP [facility] [address] [facility] [id number] [address] [place] [phone] SP May, SP [facility] [address] [facility] [id number] [address] [place] [phone] SP Mar, SP [facility] [address] [facility] [id number] [address] [place] [phone] SP Mar, SP [facility] [address] [facility] [id number] [address] [place] [phone] SP Mar, SP [facility] [address] [id number] [address] [place] [address], [place] [address] SP February, SP [facility] [address] [id number] [address] [place] [address], [place] [address] SP February, SP [facility] [address] [id number] [address] [place] [address], [place] [address] SP February, SP [facility] [address] [id number] [address] [place] [address], [place] [address] SP February, SP [facility] [address] [id number] [address] [place] [address], [place] [address] SP Oct, SP [facility] [address] [id number] [address] [place] [address], [place] [address] SP Oct, SP [facility] [address] [id number] [address] [place] [address], [place] [address] SP Sep, SP [facility] [address] [id number] [address] [place] [address], [place] [address] SP Sep, SP [facility] [address] [id number] [address] [place] [address], [place] [address] SP Jul, SP [facility] [address] [id number] [address] [place] [address], [place] [address] SP Jul, SP [facility] [address] [id number] [address] [place] [address], [place] [address] SP Jul, SP [facility] [address] [id number] [address] [place] [address], [place] [address] SP Jul, SP [facility] [address] [id number] [address] [place] [address], [place] [address] SP May, SP [facility] [address] [id number] [address] [place] [address], [place] [address] SP May, SP [facility] [address] [id number] [address] [place] [address], [place] [address] SP May, SP [facility] [address] [id number] [address] [place] [address], [place] [address] SP May, SP [facility] [address] [id number] [address] [place] [address], [place] [address] SP May, SP [facility] [address] [id number] [address] [place] [address], [place] [address] SP Mar, SP [facility] [address] [id number] [address] [place] [address], [place] [address] SP Mar, SP [facility] [address] [id number] [address] [place] [address], [place] [address] SP Dec, SP [facility] [address] [id number] [address] [place] [address], [place] [address] SP Dec, SP [facility] [address] [id number] [address] [place] [address], [place] [address] SP Dec, SP [facility] [address] [id number] [address] [place] [address], [place] [address] SP Dec, SP [facility] [address] [id number] [address] [place] [address], [place] [address] SP Nov, SP [facility] [address] [id number] [address] [place] [address], [place] [address] SP Nov, SP [facility] [address] [id number] [address] [place] [address], [place] [address] SP Nov, SP [facility] [address] [id number] [address] [place] [address], [place] [address] SP Nov, SP [facility] [address] [id number] [address] [place] [address], [place] [address] SP Oct, SP [facility] [address] [id number] [address] [place] [address], [place] [address] SP Oct, SP [facility] [address] [id number] [address] [place] [address], [place] [address] SP 18 Sep, 2012 SP [facility] [address] [id number] [address] [place] [address], [place] [address] SP 18 Sep, 2012 SP [facility] [address] [id number] [address] [place] [address], [place] [address] SP 17 Sep, 2012 SP [facility] [address] [id number] [address] [place] [address], [place] [address] SP 15 Sep, 2012 SP [facility] [address] [id number] [address] [place] [address], [place] [address] SP 14 Sep, 2012 SP [facility] [address] [id number] [address] [place] [address], [place] [address] SP Sep, SP [facility] [address] [id number] [address] [place] [address], [place] [address] SP Sep, SP [facility] [address] [id number] [address] [place] [address], [place] [address] SP Sep, SP [facility] [address] [id number] [address] [place] [address], [place] [address] SP Sep, SP [facility] [address] [id number] [address] [place] [address], [place] [address] SP Sep, SP [facility] [address] [id number] [address] [place] [address], [place] [address] SP Sep, SP [facility] [address] [id number] [address] [place] [address], [place] [address] SP Sep, SP [facility] [address] [id number] [address] [place] [address], [place] [address] SP Aug, SP [facility] [address] [id number] [address] [place] [address], [place] [address] SP Aug, SP [facility] [address] [id number] [address] [place] [address], [place] [address] SP Aug, SP [facility] [address] [id number] [address] [place] [address], [place] [address] SP Aug, SP [facility] [address] [id number] [address] [place] [address], [place] [address] SP Aug, SP [facility] [address] [id number] [address] [place] [address], [place] [address] SP Jul, SP [facility] [address] [id number] [address] [place] [address], [place] [address] SP Jul, SP [facility] [address] [id number] [address] [place] [address], [place] [address] SP Jul, SP [facility] [address] [id number] [address] [place] [address], [place] [address] SP Jul, SP [facility] [address] [id number] [address] [place] [address], [place] [address] SP Jul, SP [facility] [address] [id number] [address] [place] [address], [place] [address] SP Jul, SP [facility] [address] [id number] [address] [place] [address], [place] [address] SP Jun, SP [facility] [address] [id number] [address] [place] [address], [place] [address] SP May, SP [facility] [address] [id number] [address] [place] [address], [place] [address] SP May, SP [facility] [address] [id number] [address] [place] [address], [place] [address] SP Apr, SP [facility] [address] [id number] [address] [place] [address], [place] [address] SP Apr, SP [facility] [address] [id number] [address] [place] [address], [place] [address] SP Apr, SP [facility] [address] [id number] [address] [place] [address], [place] [address] SP Apr, SP [facility] [address] [id number] [address] [place] [address], [place] [address] SP Mar, SP [facility] [address] [id number] [address] [place] [address], [place] [address] SP Mar, SP [facility] [address] [id number] [address] [place] [address], [place] [address] SP February, SP [facility] [address] [id number] [address] [place] [address], [place] [address] SP February, SP [facility] [address] [id number] [address] [place] [address], [place] [address] SP February, SP [facility] [address] [id number] [address] [place] [address], [place] [address] SP Jan, SP [facility] [address] [id number] [address] [place] [address], [place] [address] SP Jan, SP [facility] [address] [id number] [address] [place] [address], [place] [address] SP Dec, SP [facility] [address] [id number] [address] [place] [address], [place] [address] SP Dec, SP [facility] [address] [id number] [address] [place] [address], [place] [address] SP Dec, SP [facility] [address] [id number] [address] [place] [address], [place] [address] SP Dec, SP [facility] [address] [id number] [address] [place] [address], [place] [address] SP Nov, SP [facility] [address] [id number] [address] [place] [address], [place] [address] SP Nov, SP [facility] [address] [id number] [address] [place] [address], [place] [address] SP Oct, SP [facility] [address] [id number] [address] [place] [address] SP Oct, SP [facility] [address] [id number] [address] [place] [address] SP Oct, SP [facility] [address] [id number] [address] [place] [id number] SP Oct, SP [facility] [address] [id number] [address] [place] [id number] SP Oct, SP [facility] [address] [id number] [address] [place] [address] SP Oct, SP [facility] [address] [id number] [address] [place] [id number] SP Oct, SP [facility] [address] [facility] [id number] [address] [place] [address] SP Oct, SP [facility] [address] [facility] [id number] [address] [place] [address] SP Oct, SP [facility] [address] [facility] [id number] [address] [place] [address] SP Sep, SP [facility] [address] [facility] [id number] [address] [place] [address] SP Sep, SP [facility] [address] [facility] [id number] [address] [place] [phone] SP Sep, SP [facility] [address] [id number] [address] [place] [address] SP Apr, SP [facility] [address] [id number] [address] [place] [phone] SP February, SP [facility] [address] [facility] [id number] [address] [place] [phone] SP February, SP IMMUNIZATIONS No Known Immunizations SOCIAL HISTORY Never Assessed REASON FOR VISIT EMR[place] PLAN OF CARE VITAL SIGNS MEDICATIONS Unknown Medications RESULTS No Results PROCEDURES No Known procedures INSTRUCTIONS MEDICATIONS ADMINISTERED No Known Medications MEDICAL (GENERAL) HISTORY Type Description Date POS Medical History chronic pain SP Medical History Arthritis SP Surgical History No know Surgical history SP Hospitalization History liver abscess SP
--- OUTSIDE RECORDS SUMMARY | 2019-08-21 18:38 | XMS REPORT ---
Author Author Migration, Doctor POS Organization [facility] SP Address Unknown SP Phone Unavailable SP Care Team Providers Care Message Broker Developer Name Role Phone POS Migration, Doctor Unavailable Unavailable SP PROBLEMS Type Condition ICD9-CM Code [id number] Code Onset Dates Condition S tatus SNOMED POS Problem Erectile dysfunction due to diseases classified elsewhere N52.1 POS [id number] SP Problem Mixed hyperlipidemia E78.2 Active 577319945 SP Problem Rheumatoid arthritis involvi ng multiple sites with positive rheumatoid SP M05.79 Active 534266515 SP Problem Cigarette nicotine dependence without complication F17.210 Active SP ALLERGIES No Information ENCOUNTERS Encounter Location Date Diagnosis POS [facility] [address] [facility] [id number] [address] [place] [address] SP Oct, Chest pain R07.9 SP [facility] [address] [id number] [address] [place] [address] SP Oct, Chest wall pain R07.89 SP [facility] [address] [facility] [id number] [address] [place] [phone] SP Apr, Rheumatoid arthritis involvi ng multiple sites with positive SP factor M05.79 and Mixed hyperlipidemia E78.2 [facility] [address] [facility] [id number] [address] [place] [phone] SP May, Mixed hyperlipidemia E78.2 SP [facility] [address] [id number] [address] [place] [phone] SP May, Mixed hyperlipidemia E78.2 ; Rheumatoid arthritis involving SP sites with positive rheumatoid factor M05.79 ; Erectile dysfunction due to diseases classified elsewhere N52.1 ; Routine adult health maintenance Z00.00 and Cigarette nicotine dependence without complication F17.210 [facility] [address] [facility] [id number] [address] [place] [phone] SP Aug, SP [facility] [address] [facility] [id number] [address] [place] [phone] SP Aug, Chest wall pain R07.89 and R heumatoid arthritis involving SP sites with positive rheumatoid factor M05.79 [facility] [address] [facility] [id number] [address] [place] [phone] SP Jun, Rheumatoid arthritis 714.0 a nd Chronic hepatitis C with hepatic SP 070.44 [facility] [address] [facility] [id number] [address] [place] [phone] SP Jun, SP [facility] [address] [facility] [id number] [address] [place] [phone] SP 14 Jan, 2015 SP [facility] [address] [facility] [id number] [address] [place] [phone] SP Jan, SP [facility] [address] [facility] [id number] [address] [place] [phone] SP Sep, SP [facility] [address] [facility] [id number] [address] [place] [phone] SP Sep, SP [facility] [address] [facility] [id number] [address] [place] [phone] SP Sep, SP [facility] [address] [facility] [id number] [address] [place] [phone] SP Sep, SP [facility] [address] [facility] [id number] [address] [place] [phone] SP May, SP [facility] [address] [facility] [id number] [address] [place] [phone] SP May, SP [facility] [address] [facility] [id number] [address] [place] [phone] SP Mar, SP [facility] [address] [facility] [id number] [address] [place] [phone] SP Mar, SP [facility] [address] [facility] [id number] [address] [place] [phone] SP Mar, SP [facility] [address] [id number] [address] [place] [address], [place] [address] SP February, SP [facility] [address] [id number] [address] [place] [address], [place] [address] SP February, SP [facility] [address] [id number] [address] [place] [address], [place] [address] SP February, SP [facility] [address] [id number] [address] [place] [address], [place] [address] SP February, SP [facility] [address] [id number] [address] [place] [address], [place] [address] SP Oct, SP [facility] [address] [id number] [address] [place] [address], [place] [address] SP Oct, SP [facility] [address] [id number] [address] [place] [address], [place] [address] SP Sep, SP [facility] [address] [id number] [address] [place] [address], [place] [address] SP Sep, SP [facility] [address] [id number] [address] [place] [address], [place] [address] SP Jul, SP [facility] [address] [id number] [address] [place] [address], [place] [address] SP Jul, SP [facility] [address] [id number] [address] [place] [address], [place] [address] SP Jul, SP [facility] [address] [id number] [address] [place] [address], [place] [address] SP Jul, SP [facility] [address] [id number] [address] [place] [address], [place] [address] SP May, SP [facility] [address] [id number] [address] [place] [address], [place] [address] SP May, SP [facility] [address] [id number] [address] [place] [address], [place] [address] SP May, SP [facility] [address] [id number] [address] [place] [address], [place] [address] SP May, SP [facility] [address] [id number] [address] [place] [address], [place] [address] SP May, SP [facility] [address] [id number] [address] [place] [address], [place] [address] SP Mar, SP [facility] [address] [id number] [address] [place] [address], [place] [address] SP Mar, SP [facility] [address] [id number] [address] [place] [address], [place] [address] SP Dec, SP [facility] [address] [id number] [address] [place] [address], [place] [address] SP Dec, SP [facility] [address] [id number] [address] [place] [address], [place] [address] SP Dec, SP [facility] [address] [id number] [address] [place] [address], [place] [address] SP Dec, SP [facility] [address] [id number] [address] [place] [address], [place] [address] SP Nov, SP [facility] [address] [id number] [address] [place] [address], [place] [address] SP Nov, SP [facility] [address] [id number] [address] [place] [address], [place] [address] SP Nov, SP [facility] [address] [id number] [address] [place] [address], [place] [address] SP Nov, SP [facility] [address] [id number] [address] [place] [address], [place] [address] SP Oct, SP [facility] [address] [id number] [address] [place] [address], [place] [address] SP Oct, SP [facility] [address] [id number] [address] [place] [address], [place] [address] SP 18 Sep, 2012 SP [facility] [address] [id number] [address] [place] [address], [place] [address] SP 18 Sep, 2012 SP [facility] [address] [id number] [address] [place] [address], [place] [address] SP 17 Sep, 2012 SP [facility] [address] [id number] [address] [place] [address], [place] [address] SP 15 Sep, 2012 SP [facility] [address] [id number] [address] [place] [address], [place] [address] SP 14 Sep, 2012 SP [facility] [address] [id number] [address] [place] [address], [place] [address] SP Sep, SP [facility] [address] [id number] [address] [place] [address], [place] [address] SP Sep, SP [facility] [address] [id number] [address] [place] [address], [place] [address] SP Sep, SP [facility] [address] [id number] [address] [place] [address], [place] [address] SP Sep, SP [facility] [address] [id number] [address] [place] [address], [place] [address] SP Sep, SP [facility] [address] [id number] [address] [place] [address], [place] [address] SP Sep, SP [facility] [address] [id number] [address] [place] [address], [place] [address] SP Sep, SP [facility] [address] [id number] [address] [place] [address], [place] [address] SP Aug, SP [facility] [address] [id number] [address] [place] [address], [place] [address] SP Aug, SP [facility] [address] [id number] [address] [place] [address], [place] [address] SP Aug, SP [facility] [address] [id number] [address] [place] [address], [place] [address] SP Aug, SP [facility] [address] [id number] [address] [place] [address], [place] [address] SP Aug, SP [facility] [address] [id number] [address] [place] [address], [place] [address] SP Jul, SP [facility] [address] [id number] [address] [place] [address], [place] [address] SP Jul, SP [facility] [address] [id number] [address] [place] [address], [place] [address] SP Jul, SP [facility] [address] [id number] [address] [place] [address], [place] [address] SP Jul, SP [facility] [address] [id number] [address] [place] [address], [place] [address] SP Jul, SP [facility] [address] [id number] [address] [place] [address], [place] [address] SP Jul, SP [facility] [address] [id number] [address] [place] [address], [place] [address] SP Jun, SP [facility] [address] [id number] [address] [place] [address], [place] [address] SP May, SP [facility] [address] [id number] [address] [place] [address], [place] [address] SP May, SP [facility] [address] [id number] [address] [place] [address], [place] [address] SP Apr, SP [facility] [address] [id number] [address] [place] [address], [place] [address] SP Apr, SP [facility] [address] [id number] [address] [place] [address], [place] [address] SP Apr, SP [facility] [address] [id number] [address] [place] [address], [place] [address] SP Apr, SP [facility] [address] [id number] [address] [place] [address], [place] [address] SP Mar, SP [facility] [address] [id number] [address] [place] [address], [place] [address] SP Mar, SP [facility] [address] [id number] [address] [place] [address], [place] [address] SP February, SP [facility] [address] [id number] [address] [place] [address], [place] [address] SP February, SP [facility] [address] [id number] [address] [place] [address], [place] [address] SP February, SP [facility] [address] [id number] [address] [place] [address], [place] [address] SP Jan, SP [facility] [address] [id number] [address] [place] [address], [place] [address] SP Jan, SP [facility] [address] [id number] [address] [place] [address], [place] [address] SP Dec, SP [facility] [address] [id number] [address] [place] [address], [place] [address] SP Dec, SP [facility] [address] [id number] [address] [place] [address], [place] [address] SP Dec, SP [facility] [address] [id number] [address] [place] [address], [place] [address] SP Dec, SP [facility] [address] [id number] [address] [place] [address], [place] [address] SP Nov, SP [facility] [address] [id number] [address] [place] [address], [place] [address] SP Nov, SP [facility] [address] [id number] [address] [place] [address], [place] [address] SP Oct, SP [facility] [address] [id number] [address] [place] [phone] SP Oct, SP [facility] [address] [id number] [address] [place] [phone] SP Oct, SP [facility] [address] [id number] [address] [place] [address] SP Oct, SP [facility] [address] [id number] [address] [place] [address] SP Oct, SP [facility] [address] [id number] [address] [place] [id number] SP Oct, SP [facility] [address] [id number] [address] [place] [address] SP Oct, SP [facility] [address] [facility] [id number] [address] [place] [address] SP Oct, SP [facility] [address] [id number] [address] [place] [address] SP Oct, SP [facility] [address] [id number] [address] [place] [id number] SP Sep, SP [facility] [address] [id number] [address] [place] [address] SP Sep, SP [facility] [address] [id number] [address] [place] [phone] SP Sep, SP [facility] [address] [id number] [address] [place] [phone] SP Apr, SP [facility] [address] [id number] [address] [place] [phone] SP February, SP [facility] [address] [facility] [id number] [address] [place] [phone] SP February, SP IMMUNIZATIONS No Known Immunizations SOCIAL HISTORY Never Assessed REASON FOR VISIT EMR-[facility] PLAN OF CARE VITAL SIGNS MEDICATIONS Medication Instructions Dosage Frequency Start Date End Date Duration S tatus POS Naprosyn 500 mg 1 tablet by Oral route 2 times per day 0 4 May, 2014 SP Oxycodone-Acetaminophen 5-325 mg [address] e every 6 hours 2013 Active SP PredniSONE 10 mg take 2-3 tablet by O ral route 1 time per day3 q AM pc x5 days SPthen 2 q AM pc Sep, Active SP RESULTS No Results PROCEDURES No Known procedures INSTRUCTIONS MEDICATIONS ADMINISTERED No Known Medications MEDICAL (GENERAL) HISTORY Type Description Date POS Medical History chronic pain SP Medical History Arthritis SP Surgical History No know Surgical history SP Hospitalization History liver abscess SP
--- OUTSIDE RECORDS SUMMARY | 2019-08-21 18:38 | XMS REPORT ---
Author Author Migration, Doctor POS Organization [facility] SP Address Unknown SP Phone Unavailable SP Care Team Providers Care High Worker Name Role Phone POS Migration, Doctor Unavailable Unavailable SP PROBLEMS Type Condition ICD9-CM Code [id number] Code Onset Dates Condition S tatus SNOMED POS Problem Erectile dysfunction due to diseases classified elsewhere N52.1 POS [id number] SP Problem Mixed hyperlipidemia E78.2 Active [id number] SP Problem Rheumatoid arthritis involvi ng multiple sites with positive rheumatoid SP M05.79 Active [id number] SP Problem Cigarette nicotine dependence without complication F17.210 Active SP ALLERGIES No Information ENCOUNTERS Encounter Location Date Diagnosis POS [facility] [address] [facility] [id number] [address] [place] [address] SP Oct, Chest pain R07.9 SP [facility] WALK IN [facility] [address] [id number] [address] [place] [address] SP Oct, Chest wall pain R07.89 SP [facility] [place] [address] [facility] [id number] [address] [place] [phone] SP Apr, Rheumatoid arthritis involvi ng multiple sites with positive SP factor M05.79 and Mixed hyperlipidemia E78.2 [facility] [place] [address] [facility] [id number] [address] [place] [address] SP May, Mixed hyperlipidemia E78.2 SP [facility] [place] [address] [id number] [address] [place] [address] SP May, Mixed hyperlipidemia E78.2 ; Rheumatoid arthritis involving SP sites with positive rheumatoid factor M05.79 ; Erectile dysfunction due to diseases classified elsewhere N52.1 ; Routine adult health maintenance Z00.00 and Cigarette nicotine dependence without complication F17.210 [facility] [place] [address] [facility] [id number] [address] [place] [address] SP Aug, SP [facility] [place] [address] [facility] [id number] [address] [place] [address] SP Aug, Chest wall pain R07.89 and R heumatoid arthritis involving SP sites with positive rheumatoid factor M05.79 [facility] [place] [address] [facility] [id number] [address] [place] [address] SP Jun, Rheumatoid arthritis 714.0 a nd Chronic hepatitis C with hepatic SP 070.44 [facility] [place] [address] [facility] [id number] [address] [place] [address] SP Jun, SP [facility] [place] [address] [facility] [id number] [address] [place] [address] SP 14 Jan, 2015 SP [facility] [place] [address] [facility] [id number] [address] [place] [address] SP Jan, SP [facility] [place] [address] [facility] [id number] [address] [place] [address] SP Sep, SP [facility] [place] [address] [facility] [id number] [address] [place] [address] SP Sep, SP [facility] [place] [address] [facility] [id number] [address] [place] [address] SP Sep, SP [facility] [place] [address] [facility] [id number] [address] [place] [address] SP Sep, SP [facility] [place] [address] [facility] [id number] [address] [place] [address] SP May, SP [facility] [place] [address] [facility] [id number] [address] [place] [address] SP May, SP [facility] [place] [address] [facility] [id number] [address] [place] [address] SP Mar, SP [facility] [place] [address] [facility] [id number] [address] [place] [address] SP Mar, SP [facility] [place] [address] [facility] [id number] [address] [place] [address] SP Mar, SP [facility] [address] [id number] [address] [place] [address], [place] [address] SP February, SP [facility] [address] [id number] [address] [place] [address], [place] [address] SP February, SP [facility] [address] [id number] [address] [place] [address], [place] [address] SP February, SP [facility] [address] [id number] [address] [place] [address], [place] [address] SP February, SP [facility] [address] [id number] [address] [place] [address], [place] [address] SP Oct, SP [facility] [address] [id number] [address] [place] [address], [place] [address] SP Oct, SP [facility] [address] [id number] [address] [place] [address], [place] [address] SP Sep, SP [facility] [address] [id number] [address] [place] [address], [place] [address] SP Sep, SP [facility] [address] [id number] [address] [place] [address], [place] [address] SP Jul, SP [facility] [address] [id number] [address] [place] [address], [place] [address] SP Jul, SP [facility] [address] [id number] [address] [place] [address], [place] [address] SP Jul, SP [facility] [address] [id number] [address] [place] [address], [place] [address] SP Jul, SP [facility] [address] [id number] [address] [place] [address], [place] [address] SP May, SP [facility] [address] [id number] [address] [place] [address], [place] [address] SP May, SP [facility] [address] [id number] [address] [place] [address], [place] [address] SP May, SP [facility] [address] [id number] [address] [place] [address], [place] [address] SP May, SP [facility] [address] [id number] [address] [place] [address], [place] [address] SP May, SP [facility] [address] [id number] [address] [place] [address], [place] [address] SP Mar, SP [facility] [address] [id number] [address] [place] [address], [place] [address] SP Mar, SP [facility] [address] [id number] [address] [place] [address], [place] [address] SP Dec, SP [facility] [address] [id number] [address] [place] [address], [place] [address] SP Dec, SP [facility] [address] [id number] [address] [place] [address], [place] [address] SP Dec, SP [facility] [address] [id number] [address] [place] [address], [place] [address] SP Dec, SP [facility] [address] [id number] [address] [place] [address], [place] [address] SP Nov, SP [facility] [address] [id number] [address] [place] [address], [place] [address] SP Nov, SP [facility] [address] [id number] [address] [place] [address], [place] [address] SP Nov, SP [facility] [address] [id number] [address] [place] [address], [place] [address] SP Nov, SP [facility] [address] [id number] [address] [place] [address], [place] [address] SP Oct, SP [facility] [address] [id number] [address] [place] [address], [place] [address] SP Oct, SP [facility] [address] [id number] [address] [place] [address], [place] [address] SP 18 Sep, 2012 SP [facility] [address] [id number] [address] [place] [address], [place] [address] SP 18 Sep, 2012 SP [facility] [address] [id number] [address] [place] [address], [place] [address] SP 17 Sep, 2012 SP [facility] [address] [id number] [address] [place] [address], [place] [address] SP 15 Sep, 2012 SP [facility] [address] [id number] [address] [place] [address], [place] [address] SP 14 Sep, 2012 SP [facility] [address] [id number] [address] [place] [address], [place] [address] SP Sep, SP [facility] [address] [id number] [address] [place] [address], [place] [address] SP Sep, SP [facility] [address] [id number] [address] [place] [address], [place] [address] SP Sep, SP [facility] [address] [id number] [address] [place] [address], [place] [address] SP Sep, SP [facility] [address] [id number] [address] [place] [address], [place] [address] SP Sep, SP [facility] [address] [id number] [address] [place] [address], [place] [address] SP Sep, SP [facility] [address] [id number] [address] [place] [address], [place] [address] SP Sep, SP [facility] [address] [id number] [address] [place] [address], [place] [address] SP Aug, SP [facility] [address] [id number] [address] [place] [address], [place] [address] SP Aug, SP [facility] [address] [id number] [address] [place] [address], [place] [address] SP Aug, SP [facility] [address] [id number] [address] [place] [address], [place] [address] SP Aug, SP [facility] [address] [id number] [address] [place] [address], [place] [address] SP Aug, SP [facility] [address] [id number] [address] [place] [address], [place] [address] SP Jul, SP [facility] [address] [id number] [address] [place] [address], [place] [address] SP Jul, SP [facility] [address] [id number] [address] [place] [address], [place] [address] SP Jul, SP [facility] [address] [id number] [address] [place] [address], [place] [address] SP Jul, SP [facility] [address] [id number] [address] [place] [address], [place] [address] SP Jul, SP [facility] [address] [id number] [address] [place] [address], [place] [address] SP Jul, SP [facility] [address] [id number] [address] [place] [address], [place] [address] SP Jun, SP [facility] [address] [id number] [address] [place] [address], [place] [address] SP May, SP [facility] [address] [id number] [address] [place] [address], [place] [address] SP May, SP [facility] [address] [id number] [address] [place] [address], [place] [address] SP Apr, SP [facility] [address] [id number] [address] [place] [address], [place] [address] SP Apr, SP [facility] [address] [id number] [address] [place] [address], [place] [address] SP Apr, SP [facility] [address] [id number] [address] [place] [address], [place] [address] SP Apr, SP [facility] [address] [id number] [address] [place] [address], [place] [address] SP Mar, SP [facility] [address] [id number] [address] [place] [address], [place] [address] SP Mar, SP [facility] [address] [id number] [address] [place] [address], [place] [address] SP February, SP [facility] [address] [id number] [address] [place] [address], [place] [address] SP February, SP [facility] [address] [id number] [address] [place] [address], [place] [address] SP February, SP [facility] [address] [id number] [address] [place] [address], [place] [address] SP Jan, SP [facility] [address] [id number] [address] [place] [address], [place] [address] SP Jan, SP [facility] [address] [id number] [address] [place] [address], [place] [address] SP Dec, SP [facility] [address] [id number] [address] [place] [address], [place] [address] SP Dec, SP [facility] [address] [id number] [address] [place] [address], [place] [address] SP Dec, SP [facility] [address] [id number] [address] [place] [address], [place] [address] SP Dec, SP [facility] [address] [id number] [address] [place] [address], [place] [address] SP Nov, SP [facility] [address] [id number] [address] [place] [address], [place] [address] SP Nov, SP [facility] [address] [id number] [address] [place] [address], [place] [address] SP Oct, SP [facility] [address] [id number] [address] [place] [address] SP Oct, SP [facility] [place] [address] [id number] [address] [place] [address] SP Oct, SP [facility] [place] [address] [id number] [address] [place] [address] SP Oct, SP [facility] [place] [address] [id number] [address] [place] [address] SP Oct, SP [facility] [place] [address] [id number] [address] [place] [address] SP Oct, SP [facility] [place] [address] [id number] [address] [place] [address] SP Oct, SP [facility] [place] [address] [facility] [id number] [address] [place] [address] SP Oct, SP [facility] [place] [address] [facility] [id number] [address] [place] [address] SP Oct, SP [facility] [place] [address] [facility] [id number] [address] [place] [address] SP Sep, SP [facility] [place] [address] [facility] [id number] [address] [place] [address] SP Sep, SP [facility] [place] [address] [facility] [id number] [address] [place] [address] SP Sep, SP [facility] [place] [address] [id number] [address] [place] [address] SP Apr, SP [facility] [place] [address] [id number] [address] [place] [address] SP February, SP [facility] [place] [address] [facility] [id number] [address] [place] [address] SP February, SP IMMUNIZATIONS No Known Immunizations SOCIAL HISTORY Never Assessed REASON FOR VISIT EMR-[facility] [place] PLAN OF CARE VITAL SIGNS MEDICATIONS Unknown Medications RESULTS No Results PROCEDURES No Known procedures INSTRUCTIONS MEDICATIONS ADMINISTERED No Known Medications MEDICAL (GENERAL) HISTORY Type Description Date POS Medical History chronic pain SP Medical History Arthritis SP Surgical History No know Surgical history SP Hospitalization History liver abscess SP
--- OUTSIDE RECORDS SUMMARY | 2019-08-21 18:38 | XMS REPORT ---
Author Author Migration, Doctor POS Organization [facility] SP Address Unknown SP Phone Unavailable SP Care Team Providers Care Poultry Field Service Technician Name Role Phone POS Migration, Doctor Unavailable Unavailable SP PROBLEMS Type Condition ICD9-CM Code [id number] Code Onset Dates Condition S tatus SNOMED POS Problem Erectile dysfunction due to diseases classified elsewhere N52.1 POS [id number] SP Problem Mixed hyperlipidemia E78.2 Active [id number] SP Problem Rheumatoid arthritis involvi ng multiple sites with positive rheumatoid SP M05.79 Active 120794109 SP Problem Cigarette nicotine dependence without complication F17.210 Active SP ALLERGIES No Information ENCOUNTERS Encounter Location Date Diagnosis POS [facility] [address] [facility] [id number] [address] [place] [address] SP Oct, Chest pain R07.9 SP [facility] WALK IN [facility] [address] [id number] [address] [place] [address] SP Oct, Chest wall pain R07.89 SP [facility] [address] [facility] [id number] [address] [place] [phone] SP Apr, Rheumatoid arthritis involvi ng multiple sites with positive SP factor M05.79 and Mixed hyperlipidemia E78.2 [facility] [address] [facility] [id number] [address] [place] [phone] SP May, Mixed hyperlipidemia E78.2 SP [facility] [address] [id number] [address] [place] [phone] SP May, Mixed hyperlipidemia E78.2 ; Rheumatoid arthritis involving SP sites with positive rheumatoid factor M05.79 ; Erectile dysfunction due to diseases classified elsewhere N52.1 ; Routine adult health maintenance Z00.00 and Cigarette nicotine dependence without complication F17.210 [facility] [address] [facility] [id number] [address] [place] [phone] SP Aug, SP [facility] [address] [id number] [address] [place] [phone] SP Aug, Chest wall pain R07.89 and R heumatoid arthritis involving SP sites with positive rheumatoid factor M05.79 [facility] [address] [facility] [id number] [address] [place] [phone] SP Jun, Rheumatoid arthritis 714.0 a nd Chronic hepatitis C with hepatic SP 070.44 [facility] [address] [facility] [id number] [address] [place] [phone] SP Jun, SP [facility] [address] [facility] [id number] [address] [place] [phone] SP 14 Jan, 2015 SP [facility] [address] [facility] [id number] [address] [place] [phone] SP Jan, SP [facility] [address] [facility] [id number] [address] [place] [phone] SP Sep, SP [facility] [address] [facility] [id number] [address] [place] [phone] SP Sep, SP [facility] [address] [facility] [id number] [address] [place] [phone] SP Sep, SP [facility] [address] [facility] [id number] [address] [place] [phone] SP Sep, SP [facility] [address] [facility] [id number] [address] [place] [phone] SP May, SP [facility] [address] [facility] [id number] [address] [place] [phone] SP May, SP [facility] [address] [facility] [id number] [address] [place] [phone] SP Mar, SP [facility] [address] [facility] [id number] [address] [place] [phone] SP Mar, SP [facility] [address] [facility] [id number] [address] [place] [phone] SP Mar, SP [facility] [address] [id number] [address] [place] [address], [place] [address] SP February, SP [facility] [address] [id number] [address] [place] [address], [place] [address] SP February, SP [facility] [address] [id number] [address] [place] [address], [place] [address] SP February, SP [facility] [address] [id number] [address] [place] [address], [place] [address] SP February, SP [facility] [address] [id number] [address] [place] [address], [place] [address] SP Oct, SP [facility] [address] [id number] [address] [place] [address], [place] [address] SP Oct, SP [facility] [address] [id number] [address] [place] [address], [place] [address] SP Sep, SP [facility] [address] [id number] [address] [place] [address], [place] [address] SP Sep, SP [facility] [address] [id number] [address] [place] [address], [place] [address] SP Jul, SP [facility] [address] [id number] [address] [place] [address], [place] [address] SP Jul, SP [facility] [address] [id number] [address] [place] [address], [place] [address] SP Jul, SP [facility] [address] [id number] [address] [place] [address], [place] [address] SP Jul, SP [facility] [address] [id number] [address] [place] [address], [place] [address] SP May, SP [facility] [address] [id number] [address] [place] [address], [place] [address] SP May, SP [facility] [address] [id number] [address] [place] [address], [place] [address] SP May, SP [facility] [address] [id number] [address] [place] [address], [place] [address] SP May, SP [facility] [address] [id number] [address] [place] [address], [place] [address] SP May, SP [facility] [address] [id number] [address] [place] [address], [place] [address] SP Mar, SP [facility] [address] [id number] [address] [place] [address], [place] [address] SP Mar, SP [facility] [address] [id number] [address] [place] [address], [place] [address] SP Dec, SP [facility] [address] [id number] [address] [place] [address], [place] [address] SP Dec, SP [facility] [address] [id number] [address] [place] [address], [place] [address] SP Dec, SP [facility] [address] [id number] [address] [place] [address], [place] [address] SP Dec, SP [facility] [address] [id number] [address] [place] [address], [place] [address] SP Nov, SP [facility] [address] [id number] [address] [place] [address], [place] [address] SP Nov, SP [facility] [address] [id number] [address] [place] [address], [place] [address] SP Nov, SP [facility] [address] [id number] [address] [place] [address], [place] [address] SP Nov, SP [facility] [address] [id number] [address] [place] [address], [place] [address] SP Oct, SP [facility] [address] [id number] [address] [place] [address], [place] [address] SP Oct, SP [facility] [address] [id number] [address] [place] [address], [place] [address] SP 18 Sep, 2012 SP [facility] [address] [id number] [address] [place] [address], [place] [address] SP 18 Sep, 2012 SP [facility] [address] [id number] [address] [place] [address], [place] [address] SP 17 Sep, 2012 SP [facility] [address] [id number] [address] [place] [address], [place] [address] SP 15 Sep, 2012 SP [facility] [address] [id number] [address] [place] [address], [place] [address] SP 14 Sep, 2012 SP [facility] [address] [id number] [address] [place] [address], [place] [address] SP Sep, SP [facility] [address] [id number] [address] [place] [address], [place] [address] SP Sep, SP [facility] [address] [id number] [address] [place] [address], [place] [address] SP Sep, SP [facility] [address] [id number] [address] [place] [address], [place] [address] SP Sep, SP [facility] [address] [id number] [address] [place] [address], [place] [address] SP Sep, SP [facility] [address] [id number] [address] [place] [address], [place] [address] SP Sep, SP [facility] [address] [id number] [address] [place] [address], [place] [address] SP Sep, SP [facility] [address] [id number] [address] [place] [address], [place] [address] SP Aug, SP [facility] [address] [id number] [address] [place] [address], [place] [address] SP Aug, SP [facility] [address] [id number] [address] [place] [address], [place] [address] SP Aug, SP [facility] [address] [id number] [address] [place] [address], [place] [address] SP Aug, SP [facility] [address] [id number] [address] [place] [address], [place] [address] SP Aug, SP [facility] [address] [id number] [address] [place] [address], [place] [address] SP Jul, SP [facility] [address] [id number] [address] [place] [address], [place] [address] SP Jul, SP [facility] [address] [id number] [address] [place] [address], [place] [address] SP Jul, SP [facility] [address] [id number] [address] [place] [address], [place] [address] SP Jul, SP [facility] [address] [id number] [address] [place] [address], [place] [address] SP Jul, SP [facility] [address] [id number] [address] [place] [address], [place] [address] SP Jul, SP [facility] [address] [id number] [address] [place] [address], [place] [address] SP Jun, SP [facility] [address] [id number] [address] [place] [address], [place] [address] SP May, SP [facility] [address] [id number] [address] [place] [address], [place] [address] SP May, SP [facility] [address] [id number] [address] [place] [address], [place] [address] SP Apr, SP [facility] [address] [id number] [address] [place] [address], [place] [address] SP Apr, SP [facility] [address] [id number] [address] [place] [address], [place] [address] SP Apr, SP [facility] [address] [id number] [address] [place] [address], [place] [address] SP Apr, SP [facility] [address] [id number] [address] [place] [address], [place] [address] SP Mar, SP [facility] [address] [id number] [address] [place] [address], [place] [address] SP Mar, SP [facility] [address] [id number] [address] [place] [address], [place] [address] SP February, SP [facility] [address] [id number] [address] [place] [address], [place] [address] SP February, SP [facility] [address] [id number] [address] [place] [address], [place] [address] SP February, SP [facility] [address] [id number] [address] [place] [address], [place] [address] SP Jan, SP [facility] [address] [id number] [address] [place] [address], [place] [address] SP Jan, SP [facility] [address] [id number] [address] [place] [address], [place] [address] SP Dec, SP [facility] [address] [id number] [address] [place] [address], [place] [address] SP Dec, SP [facility] [address] [id number] [address] [place] [address], [place] [address] SP Dec, SP [facility] [address] [id number] [address] [place] [address], [place] [address] SP Dec, SP [facility] [address] [id number] [address] [place] [address], [place] [address] SP Nov, SP [facility] [address] [id number] [address] [place] [address], [place] [address] SP Nov, SP [facility] [address] [id number] [address] [place] [address], [place] [address] SP Oct, SP [facility] [address] [id number] [address] [place] [phone] SP Oct, SP [facility] [address] [id number] [address] [place] [phone] SP Oct, SP [facility] [address] [id number] [address] [place] [phone] SP Oct, SP [facility] [address] [id number] [address] [place] [address] SP Oct, SP [facility] [address] [id number] [address] [place] [id number] SP Oct, SP [facility] [address] [id number] [address] [place] [phone] SP Oct, SP [facility] [address] [facility] [id number] [address] [place] [phone] SP Oct, SP [facility] [address] [facility] [id number] [address] [place] [phone] SP Oct, SP [facility] [address] [facility] [id number] [address] [place] [phone] SP Sep, SP [facility] [address] [facility] [id number] [address] [place] [phone] SP Sep, SP [facility] [address] [facility] [id number] [address] [place] [phone] SP Sep, SP [facility] [address] [id number] [address] [place] [phone] SP Apr, SP [facility] [address] [id number] [address] [place] [phone] SP February, SP [facility] [address] [facility] [id number] [address] [place] [phone] SP February, SP IMMUNIZATIONS No Known Immunizations SOCIAL HISTORY Never Assessed REASON FOR VISIT EMR-[facility] PLAN OF CARE VITAL SIGNS MEDICATIONS Unknown Medications RESULTS No Results PROCEDURES No Known procedures INSTRUCTIONS MEDICATIONS ADMINISTERED No Known Medications MEDICAL (GENERAL) HISTORY Type Description Date POS Medical History chronic pain SP Medical History Arthritis SP Surgical History No know Surgical history SP Hospitalization History liver abscess SP
--- OUTSIDE RECORDS SUMMARY | 2019-08-21 18:38 | XMS REPORT ---
Author Author Migration, Doctor POS Organization [facility] SP Address Unknown SP Phone Unavailable SP Care Team Providers Care Biodiesel Product Development Manager Name Role Phone POS Migration, Doctor Unavailable Unavailable SP PROBLEMS Type Condition ICD9-CM Code PHI36-CY Code Onset Dates Condition S tatus SNOMED POS Problem Erectile dysfunction due to diseases classified elsewhere N52.1 POS [id number] SP Problem Mixed hyperlipidemia E78.2 Active [id number] SP Problem Rheumatoid arthritis involvi ng multiple sites with positive rheumatoid SP M05.79 Active 932034170 SP Problem Cigarette nicotine dependence without complication F17.210 Active SP ALLERGIES No Information ENCOUNTERS Encounter Location Date Diagnosis POS [facility] [address] [facility] [id number] [address] [place] [address] SP Oct, Chest pain R07.9 SP [facility] [address] [id number] [address] [place] [address] SP Oct, Chest wall pain R07.89 SP [facility] [address] [facility] [id number] [address] [place] [address] SP Apr, Rheumatoid arthritis involvi ng multiple sites with positive SP factor M05.79 and Mixed hyperlipidemia E78.2 [facility] [address] [facility] [id number] [address] [place] [address] SP May, Mixed hyperlipidemia E78.2 SP [facility] [address] [id number] [address] [place] [id number] SP May, Mixed hyperlipidemia E78.2 ; Rheumatoid arthritis involving SP sites with positive rheumatoid factor M05.79 ; Erectile dysfunction due to diseases classified elsewhere N52.1 ; Routine adult health maintenance Z00.00 and Cigarette nicotine dependence without complication F17.210 [facility] [address] [facility] [id number] [address] [place] [address] SP Aug, SP [facility] [address] [facility] [id number] [address] [place] [address] SP Aug, Chest wall pain R07.89 and R heumatoid arthritis involving SP sites with positive rheumatoid factor M05.79 [facility] [address] [facility] [id number] [address] [place] [address] SP Jun, Rheumatoid arthritis 714.0 a nd Chronic hepatitis C with hepatic SP 070.44 [facility] [address] [facility] [id number] [address] [place] [address] SP Jun, SP [facility] [address] [facility] [id number] [address] [place] [phone] SP 14 Jan, 2015 SP [facility] [address] [facility] [id number] [address] [place] [phone] SP Jan, SP [facility] [address] [facility] [id number] [address] [place] [phone] SP Sep, SP [facility] [address] [facility] [id number] [address] [place] [phone] SP Sep, SP [facility] [address] [facility] [id number] [address] [place] [phone] SP Sep, SP [facility] [address] [facility] [id number] [address] [place] [phone] SP Sep, SP [facility] [address] [facility] [id number] [address] [place] [phone] SP May, SP [facility] [address] [facility] [id number] [address] [place] [id number] SP May, SP [facility] [address] [facility] [id number] [address] [place] [id number] SP Mar, SP [facility] [address] [facility] [id number] [address] [place] [phone] SP Mar, SP [facility] [address] [facility] [id number] [address] [place] [phone] SP Mar, SP [facility] [address] [id number] [address] [place] [address], [place] [address] SP February, SP [facility] [address] [id number] [address] [place] [address], [place] [address] SP February, SP [facility] [address] [id number] [address] [place] [address], [place] [address] SP February, SP [facility] [address] [id number] [address] [place] [address], [place] [address] SP February, SP [facility] [address] [id number] [address] [place] [address], [place] [address] SP Oct, SP [facility] [address] [id number] [address] [place] [address], [place] [address] SP Oct, SP [facility] [address] [id number] [address] [place] [address], [place] [address] SP Sep, SP [facility] [address] [id number] [address] [place] [address], [place] [address] SP Sep, SP [facility] [address] [id number] [address] [place] [address], [place] [address] SP Jul, SP [facility] [address] [id number] [address] [place] [address], [place] [address] SP Jul, SP [facility] [address] [id number] [address] [place] [address], [place] [address] SP Jul, SP [facility] [address] [id number] [address] [place] [address], [place] [address] SP Jul, SP [facility] [address] [id number] [address] [place] [address], [place] [address] SP May, SP [facility] [address] [id number] [address] [place] [address], [place] [address] SP May, SP [facility] [address] [id number] [address] [place] [address], [place] [address] SP May, SP [facility] [address] [id number] [address] [place] [address], [place] [address] SP May, SP [facility] [address] [id number] [address] [place] [address], [place] [address] SP May, SP [facility] [address] [id number] [address] [place] [address], [place] [address] SP Mar, SP [facility] [address] [id number] [address] [place] [address], [place] [address] SP Mar, SP [facility] [address] [id number] [address] [place] [address], [place] [address] SP Dec, SP [facility] [address] [id number] [address] [place] [address], [place] [address] SP Dec, SP [facility] [address] [id number] [address] [place] [address], [place] [address] SP Dec, SP [facility] [address] [id number] [address] [place] [address], [place] [address] SP Dec, SP [facility] [address] [id number] [address] [place] [address], [place] [address] SP Nov, SP [facility] [address] [id number] [address] [place] [address], [place] [address] SP Nov, SP [facility] [address] [id number] [address] [place] [address], [place] [address] SP Nov, SP [facility] [address] [id number] [address] [place] [address], [place] [address] SP Nov, SP [facility] [address] [id number] [address] [place] [address], [place] [address] SP Oct, SP [facility] [address] [id number] [address] [place] [address], [place] [address] SP Oct, SP [facility] [address] [id number] [address] [place] [address], [place] [address] SP 18 Sep, 2012 SP [facility] [address] [id number] [address] [place] [address], [place] [address] SP 18 Sep, 2012 SP [facility] [address] [id number] [address] [place] [address], [place] [address] SP 17 Sep, 2012 SP [facility] [address] [id number] [address] [place] [address], [place] [address] SP 15 Sep, 2012 SP [facility] [address] [id number] [address] [place] [address], [place] [address] SP 14 Sep, 2012 SP [facility] [address] [id number] [address] [place] [address], [place] [address] SP Sep, SP [facility] [address] [id number] [address] [place] [address], [place] [address] SP Sep, SP [facility] [address] [id number] [address] [place] [address], [place] [address] SP Sep, SP [facility] [address] [id number] [address] [place] [address], [place] [address] SP Sep, SP [facility] [address] [id number] [address] [place] [address], [place] [address] SP Sep, SP [facility] [address] [id number] [address] [place] [address], [place] [address] SP Sep, SP [facility] [address] [id number] [address] [place] [address], [place] [address] SP Sep, SP [facility] [address] [id number] [address] [place] [address], [place] [address] SP Aug, SP [facility] [address] [id number] [address] [place] [address], [place] [address] SP Aug, SP [facility] [address] [id number] [address] [place] [address], [place] [address] SP Aug, SP [facility] [address] [id number] [address] [place] [address], [place] [address] SP Aug, SP [facility] [address] [id number] [address] [place] [address], [place] [address] SP Aug, SP [facility] [address] [id number] [address] [place] [address], [place] [address] SP Jul, SP [facility] [address] [id number] [address] [place] [address], [place] [address] SP Jul, SP [facility] [address] [id number] [address] [place] [address], [place] [address] SP Jul, SP [facility] [address] [id number] [address] [place] [address], [place] [address] SP Jul, SP [facility] [address] [id number] [address] [place] [address], [place] [address] SP Jul, SP [facility] [address] [id number] [address] [place] [address], [place] [address] SP Jul, SP [facility] [address] [id number] [address] [place] [address], [place] [address] SP Jun, SP [facility] [address] [id number] [address] [place] [address], [place] [address] SP May, SP [facility] [address] [id number] [address] [place] [address], [place] [address] SP May, SP [facility] [address] [id number] [address] [place] [address], [place] [address] SP Apr, SP [facility] [address] [id number] [address] [place] [address], [place] [address] SP Apr, SP [facility] [address] [id number] [address] [place] [address], [place] [address] SP Apr, SP [facility] [address] [id number] [address] [place] [address], [place] [address] SP Apr, SP [facility] [address] [id number] [address] [place] [address], [place] [address] SP Mar, SP [facility] [address] [id number] [address] [place] [address], [place] [address] SP Mar, SP [facility] [address] [id number] [address] [place] [address], [place] [address] SP February, SP [facility] [address] [id number] [address] [place] [address], [place] [address] SP February, SP [facility] [address] [id number] [address] [place] [address], [place] [address] SP February, SP [facility] [address] [id number] [address] [place] [address], [place] [address] SP Jan, SP [facility] [address] [id number] [address] [place] [address], [place] [address] SP Jan, SP [facility] [address] [id number] [address] [place] [address], [place] [address] SP Dec, SP [facility] [address] [id number] [address] [place] [address], [place] [address] SP Dec, SP [facility] [address] [id number] [address] [place] [address], [place] [address] SP Dec, SP [facility] [address] [id number] [address] [place] [address], [place] [address] SP Dec, SP [facility] [address] [id number] [address] [place] [address], [place] [address] SP Nov, SP [facility] [address] [id number] [address] [place] [address], [place] [address] SP Nov, SP [facility] [address] [id number] [address] [place] [address], [place] [address] SP Oct, SP [facility] [address] [id number] [address] [place] [address] SP Oct, SP [facility] [address] [id number] [address] [place] [address] SP Oct, SP [facility] [address] [id number] [address] [place] [id number] SP Oct, SP [facility] [address] [id number] [address] [place] [id number] SP Oct, SP [facility] [address] [id number] [address] [place] [address] SP Oct, SP [facility] [address] [id number] [address] [place] [address] SP Oct, SP [facility] [address] [facility] [id number] [address] [place] [address] SP Oct, SP [facility] [address] [facility] [id number] [address] [place] [address] SP Oct, SP [facility] [address] [facility] [id number] [address] [place] [address] SP Sep, SP [facility] [address] [facility] [id number] [address] [place] [address] SP Sep, SP [facility] [address] [facility] [id number] [address] [place] [address] SP Sep, SP [facility] [address] [id number] [address] [place] [address] SP Apr, SP [facility] [address] [id number] [address] [place] [address] SP February, SP [facility] [address] [facility] [id number] [address] [place] [address] SP February, SP IMMUNIZATIONS No Known Immunizations SOCIAL HISTORY Never Assessed REASON FOR VISIT EMR-[facility] [place] [facility] PLAN OF CARE VITAL SIGNS MEDICATIONS Unknown Medications RESULTS No Results PROCEDURES No Known procedures INSTRUCTIONS MEDICATIONS ADMINISTERED No Known Medications MEDICAL (GENERAL) HISTORY Type Description Date POS Medical History chronic pain SP Medical History Arthritis SP Surgical History No know Surgical history SP Hospitalization History liver abscess SP
--- OUTSIDE RECORDS SUMMARY | 2019-08-21 18:39 | XMS REPORT ---
Author Author Migration, Doctor POS Organization [facility] SP Address Unknown SP Phone Unavailable SP Care Team Providers Care Environmental Project Manager Name Role Phone POS Migration, Doctor Unavailable Unavailable SP PROBLEMS Type Condition ICD9-CM Code EMV95-QZ Code Onset Dates Condition S tatus SNOMED POS Problem Erectile dysfunction due to diseases classified elsewhere N52.1 POS [id number] SP Problem Mixed hyperlipidemia E78.2 Active [id number] SP Problem Rheumatoid arthritis involvi ng multiple sites with positive rheumatoid SP M05.79 Active [id number] SP Problem Cigarette nicotine dependence without complication F17.210 Active SP ALLERGIES No Information ENCOUNTERS Encounter Location Date Diagnosis POS [facility] [address] [facility] [place] [id number] [address] [place] [address] SP Oct, Chest pain R07.9 SP [facility] WALK IN [facility] [address] [id number] [address] [place] [address] SP Oct, Chest wall pain R07.89 SP [facility] [address] [facility] [place] [id number] [address] [place] [id number] SP Apr, Rheumatoid arthritis involvi ng multiple sites with positive SP factor M05.79 and Mixed hyperlipidemia E78.2 [facility] [address] [facility] [place] [id number] [address] [place] [phone] SP May, Mixed hyperlipidemia E78.2 SP [facility] [address] [id number] [address] [place] [phone] SP May, Mixed hyperlipidemia E78.2 ; Rheumatoid arthritis involving SP sites with positive rheumatoid factor M05.79 ; Erectile dysfunction due to diseases classified elsewhere N52.1 ; Routine adult health maintenance Z00.00 and Cigarette nicotine dependence without complication F17.210 [facility] [address] [facility] [place] [id number] [address] [place] [phone] SP Aug, SP [facility] [address] [facility] [place] [id number] [address] [place] [phone] SP Aug, Chest wall pain R07.89 and R heumatoid arthritis involving SP sites with positive rheumatoid factor M05.79 [facility] [address] [facility] [place] [id number] [address] [place] [phone] SP Jun, Rheumatoid arthritis 714.0 a nd Chronic hepatitis C with hepatic SP 070.44 [facility] [address] [facility] [place] [id number] [address] [place] [id number] SP Jun, SP [facility] [address] [facility] [place] [id number] [address] [place] [phone] SP 14 Jan, 2015 SP [facility] [address] [facility] [place] [id number] [address] [place] [phone] SP Jan, SP [facility] [address] [facility] [place] [id number] [address] [place] [phone] SP Sep, SP [facility] [address] [facility] [place] [id number] [address] [place] [phone] SP Sep, SP [facility] [address] [facility] [place] [id number] [address] [place] [phone] SP Sep, SP [facility] [address] [facility] [place] [id number] [address] [place] [phone] SP Sep, SP [facility] [address] [facility] [place] [id number] [address] [place] [phone] SP May, SP [facility] [address] [facility] [place] [id number] [address] [place] [phone] SP May, SP [facility] [address] [facility] [place] [id number] [address] [place] [phone] SP Mar, SP [facility] [address] [facility] [place] [id number] [address] [place] [phone] SP Mar, SP [facility] [address] [facility] [place] [id number] [address] [place] [phone] SP Mar, SP [facility] [address] [id number] [address] [place] [address], [place] [address] SP February, SP [facility] [address] [id number] [address] [place] [address], [place] [address] SP February, SP [facility] [address] [id number] [address] [place] [address], [place] [address] SP February, SP [facility] [address] [id number] [address] [place] [address], [place] [address] SP February, SP [facility] [address] [id number] [address] [place] [address], [place] [address] SP Oct, SP [facility] [address] [id number] [address] [place] [address], [place] [address] SP Oct, SP [facility] [address] [id number] [address] [place] [address], [place] [address] SP Sep, SP [facility] [address] [id number] [address] [place] [address], [place] [address] SP Sep, SP [facility] [address] [id number] [address] [place] [address], [place] [address] SP Jul, SP [facility] [address] [id number] [address] [place] [address], [place] [address] SP Jul, SP [facility] [address] [id number] [address] [place] [address], [place] [address] SP Jul, SP [facility] [address] [id number] [address] [place] [address], [place] [address] SP Jul, SP [facility] [address] [id number] [address] [place] [address], [place] [address] SP May, SP [facility] [address] [id number] [address] [place] [address], [place] [address] SP May, SP [facility] [address] [id number] [address] [place] [address], [place] [address] SP May, SP [facility] [address] [id number] [address] [place] [address], [place] [address] SP May, SP [facility] [address] [id number] [address] [place] [address], [place] [address] SP May, SP [facility] [address] [id number] [address] [place] [address], [place] [phone] SP Mar, SP [facility] [address] [id number] [address] [place] [address], [place] [address] SP Mar, SP [facility] [address] [id number] [address] [place] [address], [place] [address] SP Dec, SP [facility] [address] [id number] [address] [place] [address], [place] [address] SP Dec, SP [facility] [address] [id number] [address] [place] [address], [place] [address] SP Dec, SP [facility] [address] [id number] [address] [place] [address], [place] [address] SP Dec, SP [facility] [address] [id number] [address] [place] [address], [place] [address] SP Nov, SP [facility] [address] [id number] [address] [place] [address], [place] [address] SP Nov, SP [facility] [address] [id number] [address] [place] [address], [place] [address] SP Nov, SP [facility] [address] [id number] [address] [place] [address], [place] [address] SP Nov, SP [facility] [address] [id number] [address] [place] [address], [place] [address] SP Oct, SP [facility] [address] [id number] [address] [place] [address], [place] [address] SP Oct, SP [facility] [address] [id number] [address] [place] [address], [place] [address] SP 18 Sep, 2012 SP [facility] [address] [id number] [address] [place] [address], [place] [address] SP 18 Sep, 2012 SP [facility] [address] [id number] [address] [place] [address], [place] [address] SP 17 Sep, 2012 SP [facility] [address] [id number] [address] [place] [address], [place] [address] SP 15 Sep, 2012 SP [facility] [address] [id number] [address] [place] [address], [place] [address] SP 14 Sep, 2012 SP [facility] [address] [id number] [address] [place] [address], [place] [address] SP Sep, SP [facility] [address] [id number] [address] [place] [address], [place] [address] SP Sep, SP [facility] [address] [id number] [address] [place] [address], [place] [address] SP Sep, SP [facility] [address] [id number] [address] [place] [address], [place] [address] SP Sep, SP [facility] [address] [id number] [address] [place] [address], [place] [address] SP Sep, SP [facility] [address] [id number] [address] [place] [address], [place] [address] SP Sep, SP [facility] [address] [id number] [address] [place] [address], [place] [address] SP Sep, SP [facility] [address] [id number] [address] [place] [address], [place] [address] SP Aug, SP [facility] [address] [id number] [address] [place] [address], [place] [address] SP Aug, SP [facility] [address] [id number] [address] [place] [address], [place] [address] SP Aug, SP [facility] [address] [id number] [address] [place] [address], [place] [address] SP Aug, SP [facility] [address] [id number] [address] [place] [address], [place] [address] SP Aug, SP [facility] [address] [id number] [address] [place] [address], [place] [address] SP Jul, SP [facility] [address] [id number] [address] [place] [address], [place] [address] SP Jul, SP [facility] [address] [id number] [address] [place] [address], [place] [address] SP Jul, SP [facility] [address] [id number] [address] [place] [address], [place] [address] SP Jul, SP [facility] [address] [id number] [address] [place] [address], [place] [address] SP Jul, SP [facility] [address] [id number] [address] [place] [address], [place] [address] SP Jul, SP [facility] [address] [id number] [address] [place] [address], [place] [address] SP Jun, SP [facility] [address] [id number] [address] [place] [address], [place] [address] SP May, SP [facility] [address] [id number] [address] [place] [address], [place] [address] SP May, SP [facility] [address] [id number] [address] [place] [address], [place] [address] SP Apr, SP [facility] [address] [id number] [address] [place] [address], [place] [address] SP Apr, SP [facility] [address] [id number] [address] [place] [address], [place] [address] SP Apr, SP [facility] [address] [id number] [address] [place] [address], [place] [address] SP Apr, SP [facility] [address] [id number] [address] [place] [address], [place] [address] SP Mar, SP [facility] [address] [id number] [address] [place] [address], [place] [address] SP Mar, SP [facility] [address] [id number] [address] [place] [address], [place] [address] SP February, SP [facility] [address] [id number] [address] [place] [address], [place] [address] SP February, SP [facility] [address] [id number] [address] [place] [address], [place] [address] SP February, SP [facility] [address] [id number] [address] [place] [address], [place] [address] SP Jan, SP [facility] [address] [id number] [address] [place] [address], [place] [address] SP Jan, SP [facility] [address] [id number] [address] [place] [address], [place] [address] SP Dec, SP [facility] [address] [id number] [address] [place] [address], [place] [address] SP Dec, SP [facility] [address] [id number] [address] [place] [address], [place] [address] SP Dec, SP [facility] [address] [id number] [address] [place] [address], [place] [address] SP Dec, SP [facility] [address] [id number] [address] [place] [address], [place] [address] SP Nov, SP [facility] [address] [id number] [address] [place] [address], [place] [address] SP Nov, SP [facility] [address] [id number] [address] [place] [address], [place] [address] SP Oct, SP [facility] [address] [id number] [address] [place] [address] SP Oct, SP [facility] [address] [id number] [address] [place] [address] SP Oct, SP [facility] [address] [id number] [address] [place] [id number] SP Oct, SP [facility] [address] [id number] [address] [place] [address] SP Oct, SP [facility] [address] [id number] [address] [place] [address] SP Oct, SP [facility] [address] [id number] [address] [place] [address] SP Oct, SP [facility] [address] [facility] [place] [id number] [address] [place] [address] SP Oct, SP [facility] [address] [facility] [place] [id number] [address] [place] [address] SP Oct, SP [facility] [address] [facility] [place] [id number] [address] [place] [address] SP Sep, SP [facility] [address] [facility] [place] [id number] [address] [place] [address] SP Sep, SP [facility] [address] [facility] [place] [id number] [address] [place] [phone] SP Sep, SP [facility] [address] [id number] [address] [place] [address] SP Apr, SP [facility] [address] [id number] [address] [place] [address] SP February, SP [facility] [address] [facility] [place] [id number] [address] [place] [phone] SP February, SP IMMUNIZATIONS No Known Immunizations SOCIAL HISTORY Never Assessed REASON FOR VISIT EMR[place] [place] VITAL SIGNS MEDICATIONS Unknown Medications RESULTS No Results PROCEDURES No Known procedures INSTRUCTIONS MEDICATIONS ADMINISTERED No Known Medications MEDICAL (GENERAL) HISTORY Type Description Date POS Medical History chronic pain SP Medical History Arthritis SP Surgical History No know Surgical history SP Hospitalization History liver abscess SP
--- OUTSIDE RECORDS SUMMARY | 2019-08-21 18:39 | XMS REPORT ---
Author Author Migration, Doctor POS Organization [facility] SP Address Unknown SP Phone Unavailable SP Care Team Providers Care Network Director Name Role Phone POS Migration, Doctor Unavailable Unavailable SP PROBLEMS Type Condition ICD9-CM Code ERQ55-NN Code Onset Dates Condition S tatus SNOMED POS Problem Erectile dysfunction due to diseases classified elsewhere N52.1 POS [id number] SP Problem Mixed hyperlipidemia E78.2 Active 009980630 SP Problem Rheumatoid arthritis involvi ng multiple sites with positive rheumatoid SP M05.79 Active [id number] SP Problem Cigarette nicotine dependence without complication F17.210 Active SP ALLERGIES No Information ENCOUNTERS Encounter Location Date Diagnosis POS [facility] [address] [facility] [id number] [address] [place] [address] SP Oct, Chest pain R07.9 SP [facility] [address] [id number] [address] [place] [address] SP Oct, Chest wall pain R07.89 SP [facility] [address] [facility] [id number] [address] [place] [id number] SP Apr, Rheumatoid arthritis involvi ng multiple sites with positive SP factor M05.79 and Mixed hyperlipidemia E78.2 [facility] [address] [facility] [id number] [address] [place] [phone] SP May, Mixed hyperlipidemia E78.2 SP [facility] [address] [id number] [address] [place] [phone] SP May, Mixed hyperlipidemia E78.2 ; Rheumatoid arthritis involving SP sites with positive rheumatoid factor M05.79 ; Erectile dysfunction due to diseases classified elsewhere N52.1 ; Routine adult health maintenance Z00.00 and Cigarette nicotine dependence without complication F17.210 [facility] [address] [facility] [id number] [address] [place] [phone] SP Aug, SP [facility] [address] [facility] [id number] [address] [place] [phone] SP Aug, Chest wall pain R07.89 and R heumatoid arthritis involving SP sites with positive rheumatoid factor M05.79 [facility] [address] [facility] [id number] [address] [place] [phone] SP Jun, Rheumatoid arthritis 714.0 a nd Chronic hepatitis C with hepatic SP 070.44 [facility] [address] [facility] [id number] [address] [place] [phone] SP Jun, SP [facility] [address] [facility] [id number] [address] [place] [phone] SP 14 Jan, 2015 SP [facility] [address] [facility] [id number] [address] [place] [phone] SP Jan, SP [facility] [address] [facility] [id number] [address] [place] [phone] SP Sep, SP [facility] [address] [facility] [id number] [address] [place] [id number] SP Sep, SP [facility] [address] [facility] [id number] [address] [place] [phone] SP Sep, SP [facility] [address] [facility] [id number] [address] [place] [phone] SP Sep, SP [facility] [address] [facility] [id number] [address] [place] [phone] SP May, SP [facility] [address] [facility] [id number] [address] [place] [phone] SP May, SP [facility] [address] [facility] [id number] [address] [place] [phone] SP Mar, SP [facility] [address] [facility] [id number] [address] [place] [phone] SP Mar, SP [facility] [address] [facility] [id number] [address] [place] [phone] SP Mar, SP [facility] [address] [id number] [address] [place] [address], [place] [address] SP February, SP [facility] [address] [id number] [address] [place] [address], [place] [address] SP February, SP [facility] [address] [id number] [address] [place] [address], [place] [address] SP February, SP [facility] [address] [id number] [address] [place] [address], [place] [address] SP February, SP [facility] [address] [id number] [address] [place] [address], [place] [address] SP Oct, SP [facility] [address] [id number] [address] [place] [address], [place] [address] SP Oct, SP [facility] [address] [id number] [address] [place] [address], [place] [address] SP Sep, SP [facility] [address] [id number] [address] [place] [address], [place] [address] SP Sep, SP [facility] [address] [id number] [address] [place] [address], [place] [address] SP Jul, SP [facility] [address] [id number] [address] [place] [address], [place] [address] SP Jul, SP [facility] [address] [id number] [address] [place] [address], [place] [address] SP Jul, SP [facility] [address] [id number] [address] [place] [address], [place] [address] SP Jul, SP [facility] [address] [id number] [address] [place] [address], [place] [address] SP May, SP [facility] [address] [id number] [address] [place] [address], [place] [address] SP May, SP [facility] [address] [id number] [address] [place] [address], [place] [address] SP May, SP [facility] [address] [id number] [address] [place] [address], [place] [address] SP May, SP [facility] [address] [id number] [address] [place] [address], [place] [address] SP May, SP [facility] [address] [id number] [address] [place] [address], [place] [address] SP Mar, SP [facility] [address] [id number] [address] [place] [address], [place] [address] SP Mar, SP [facility] [address] [id number] [address] [place] [address], [place] [address] SP Dec, SP [facility] [address] [id number] [address] [place] [address], [place] [address] SP Dec, SP [facility] [address] [id number] [address] [place] [address], [place] [address] SP Dec, SP [facility] [address] [id number] [address] [place] [address], [place] [address] SP Dec, SP [facility] [address] [id number] [address] [place] [address], [place] [address] SP Nov, SP [facility] [address] [id number] [address] [place] [address], [place] [address] SP Nov, SP [facility] [address] [id number] [address] [place] [address], [place] [address] SP Nov, SP [facility] [address] [id number] [address] [place] [address], [place] [address] SP Nov, SP [facility] [address] [id number] [address] [place] [address], [place] [address] SP Oct, SP [facility] [address] [id number] [address] [place] [address], [place] [address] SP Oct, SP [facility] [address] [id number] [address] [place] [address], [place] [address] SP 18 Sep, 2012 SP [facility] [address] [id number] [address] [place] [address], [place] [address] SP 18 Sep, 2012 SP [facility] [address] [id number] [address] [place] [address], [place] [address] SP 17 Sep, 2012 SP [facility] [address] [id number] [address] [place] [address], [place] [address] SP 15 Sep, 2012 SP [facility] [address] [id number] [address] [place] [address], [place] [address] SP 14 Sep, 2012 SP [facility] [address] [id number] [address] [place] [address], [place] [address] SP Sep, SP [facility] [address] [id number] [address] [place] [address], [place] [address] SP Sep, SP [facility] [address] [id number] [address] [place] [address], [place] [address] SP Sep, SP [facility] [address] [id number] [address] [place] [address], [place] [address] SP Sep, SP [facility] [address] [id number] [address] [place] [address], [place] [address] SP Sep, SP [facility] [address] [id number] [address] [place] [address], [place] [address] SP Sep, SP [facility] [address] [id number] [address] [place] [address], [place] [address] SP Sep, SP [facility] [address] [id number] [address] [place] [address], [place] [address] SP Aug, SP [facility] [address] [id number] [address] [place] [address], [place] [address] SP Aug, SP [facility] [address] [id number] [address] [place] [address], [place] [address] SP Aug, SP [facility] [address] [id number] [address] [place] [address], [place] [address] SP Aug, SP [facility] [address] [id number] [address] [place] [address], [place] [address] SP Aug, SP [facility] [address] [id number] [address] [place] [address], [place] [address] SP Jul, SP [facility] [address] [id number] [address] [place] [address], [place] [address] SP Jul, SP [facility] [address] [id number] [address] [place] [address], [place] [address] SP Jul, SP [facility] [address] [id number] [address] [place] [address], [place] [address] SP Jul, SP [facility] [address] [id number] [address] [place] [address], [place] [address] SP Jul, SP [facility] [address] [id number] [address] [place] [address], [place] [address] SP Jul, SP [facility] [address] [id number] [address] [place] [address], [place] [address] SP Jun, SP [facility] [address] [id number] [address] [place] [address], [place] [address] SP May, SP [facility] [address] [id number] [address] [place] [address], [place] [address] SP May, SP [facility] [address] [id number] [address] [place] [address], [place] [address] SP Apr, SP [facility] [address] [id number] [address] [place] [address], [place] [address] SP Apr, SP [facility] [address] [id number] [address] [place] [address], [place] [address] SP Apr, SP [facility] [address] [id number] [address] [place] [address], [place] [address] SP Apr, SP [facility] [address] [id number] [address] [place] [address], [place] [address] SP Mar, SP [facility] [address] [id number] [address] [place] [address], [place] [address] SP Mar, SP [facility] [address] [id number] [address] [place] [address], [place] [address] SP February, SP [facility] [address] [id number] [address] [place] [address], [place] [address] SP February, SP [facility] [address] [id number] [address] [place] [address], [place] [address] SP February, SP [facility] [address] [id number] [address] [place] [address], [place] [address] SP Jan, SP [facility] [address] [id number] [address] [place] [address], [place] [address] SP Jan, SP [facility] [address] [id number] [address] [place] [address], [place] [address] SP Dec, SP [facility] [address] [id number] [address] [place] [address], [place] [address] SP Dec, SP [facility] [address] [id number] [address] [place] [address], [place] [address] SP Dec, SP [facility] [address] [id number] [address] [place] [address], [place] [address] SP Dec, SP [facility] [address] [id number] [address] [place] [address], [place] [address] SP Nov, SP [facility] [address] [id number] [address] [place] [address], [place] [address] SP Nov, SP [facility] [address] [id number] [address] [place] [address], [place] [address] SP Oct, SP [facility] [address] [id number] [address] [place] [id number] SP Oct, SP [facility] [address] [id number] [address] [place] [id number] SP Oct, SP [facility] [address] [id number] [address] [place] [id number] SP Oct, SP [facility] [address] [id number] [address] [place] [phone] SP Oct, SP [facility] [address] [id number] [address] [place] [id number] SP Oct, SP [facility] [address] [id number] [address] [place] [id number] SP Oct, SP [facility] [address] [facility] [id number] [address] [place] [phone] SP Oct, SP [facility] [address] [facility] [id number] [address] [place] [id number] SP Oct, SP [facility] [address] [facility] [id number] [address] [place] [id number] SP Sep, SP [facility] [address] [facility] [id number] [address] [place] [id number] SP Sep, SP [facility] [address] [facility] [id number] [address] [place] [id number] SP Sep, SP [facility] [address] [id number] [address] [place] [id number] SP Apr, SP [facility] [address] [id number] [address] [place] [id number] SP February, SP [facility] [address] [facility] [id number] [address] [place] [phone] SP February, SP IMMUNIZATIONS No Known Immunizations SOCIAL HISTORY Never Assessed [place] [place] V[place] SIGNS MEDICATIONS Unknown Medications RESULTS No Results PROCEDURES No Known procedures INSTRUCTIONS MEDICATIONS ADMINISTERED No Known Medications MEDICAL (GENERAL) HISTORY Type Description Date POS Medical History chronic pain SP Medical History Arthritis SP Surgical History No know Surgical history SP Hospitalization History liver abscess SP
--- OUTSIDE RECORDS SUMMARY | 2019-08-21 18:39 | XMS REPORT ---
Author Author Migration, Doctor POS Organization [facility] SP Address Unknown SP Phone Unavailable SP Care Team Providers Care Hearing Aid Specialist Name Role Phone POS Migration, Doctor Unavailable Unavailable SP PROBLEMS Type Condition ICD9-CM Code IBE45-PO Code Onset Dates Condition S tatus SNOMED POS Problem Erectile dysfunction due to diseases classified elsewhere N52.1 POS [id number] SP Problem Mixed hyperlipidemia E78.2 Active [id number] SP Problem Rheumatoid arthritis involvi ng multiple sites with positive rheumatoid SP M05.79 Active [id number] SP Problem Cigarette nicotine dependence without complication F17.210 Active SP ALLERGIES No Information ENCOUNTERS Encounter Location Date Diagnosis POS [facility] [address] [id number] [address] [place] [address] SP Oct, Chest pain R07.9 SP [facility] [address] [id number] [address] [place] [address] SP Oct, Chest wall pain R07.89 SP [facility] [address] [id number] [address] [place] [id number] SP Apr, Rheumatoid arthritis involvi ng multiple sites with positive SP factor M05.79 and Mixed hyperlipidemia E78.2 [facility] [address] [id number] [address] [place] [phone] SP May, Mixed hyperlipidemia E78.2 SP [facility] [address] [id number] [address] [place] [id number] SP May, Mixed hyperlipidemia E78.2 ; Rheumatoid arthritis involving SP sites with positive rheumatoid factor M05.79 ; Erectile dysfunction due to diseases classified elsewhere N52.1 ; Routine adult health maintenance Z00.00 and Cigarette nicotine dependence without complication F17.210 [facility] [address] [id number] [address] [place] [id number] SP Aug, SP [facility] [address] [id number] [address] [place] [phone] SP Aug, Chest wall pain R07.89 and R heumatoid arthritis involving SP sites with positive rheumatoid factor M05.79 [facility] [address] [id number] [address] [place] [phone] SP Jun, Rheumatoid arthritis 714.0 a nd Chronic hepatitis C with hepatic SP 070.44 [facility] [address] [id number] [address] [place] [phone] SP Jun, SP [facility] [address] [id number] [address] [place] [phone] SP 14 Jan, 2015 SP [facility] [address] [id number] [address] [place] [phone] SP Jan, SP [facility] [address] [id number] [address] [place] [phone] SP Sep, SP [facility] [address] [id number] [address] [place] [phone] SP Sep, SP [facility] [address] [id number] [address] [place] [phone] SP Sep, SP [facility] [address] [id number] [address] [place] [phone] SP Sep, SP [facility] [address] [id number] [address] [place] [phone] SP May, SP [facility] [address] [id number] [address] [place] [phone] SP May, SP [facility] [address] [id number] [address] [place] [phone] SP Mar, SP [facility] [address] [id number] [address] [place] [phone] SP Mar, SP [facility] [address] [id number] [address] [place] [phone] SP Mar, SP [facility] [address] [id number] [address] [place] [address], [place] [phone] SP February, SP [facility] [address] [id number] [address] [place] [address], [place] [id number] SP February, SP [facility] [address] [id number] [address] [place] [address], [place] [id number] SP February, SP [facility] [address] [id number] [address] [place] [address], [place] [address] SP February, SP [facility] [address] [id number] [address] [place] [address], [place] [address] SP Oct, SP [facility] [address] [id number] [address] [place] [address], [place] [id number] SP Oct, SP [facility] [address] [id number] [address] [place] [address], [place] [address] SP Sep, SP [facility] [address] [id number] [address] [place] [address], [place] [address] SP Sep, SP [facility] [address] [id number] [address] [place] [address], [place] [address] SP Jul, SP [facility] [address] [id number] [address] [place] [address], [place] [id number] SP Jul, SP [facility] [address] [id number] [address] [place] [address], [place] [address] SP Jul, SP [facility] [address] [id number] [address] [place] [address], [place] [address] SP Jul, SP [facility] [address] [id number] [address] [place] [address], [place] [address] SP May, SP [facility] [address] [id number] [address] [place] [address], [place] [address] SP May, SP [facility] [address] [id number] [address] [place] [address], [place] [address] SP May, SP [facility] [address] [id number] [address] [place] [address], [place] [address] SP May, SP [facility] [address] [id number] [address] [place] [address], [place] [address] SP May, SP [facility] [address] [id number] [address] [place] [address], [place] [address] SP Mar, SP [facility] [address] [id number] [address] [place] [address], [place] [address] SP Mar, SP [facility] [address] [id number] [address] [place] [address], [place] [address] SP Dec, SP [facility] [address] [id number] [address] [place] [address], [place] [phone] SP Dec, SP [facility] [address] [id number] [address] [place] [address], [place] [address] SP Dec, SP [facility] [address] [id number] [address] [place] [address], [place] [address] SP Dec, SP [facility] [address] [id number] [address] [place] [address], [place] [id number] SP Nov, SP [facility] [address] [id number] [address] [place] [address], [place] [address] SP Nov, SP [facility] [address] [id number] [address] [place] [address], [place] [address] SP Nov, SP [facility] [address] [id number] [address] [place] [address], [place] [address] SP Nov, SP [facility] [address] [id number] [address] [place] [address], [place] [address] SP Oct, SP [facility] [address] [id number] [address] [place] [address], [place] [address] SP Oct, SP [facility] [address] [id number] [address] [place] [address], [place] [address] SP 18 Sep, 2012 SP [facility] [address] [id number] [address] [place] [address], [place] [address] SP 18 Sep, 2012 SP [facility] [address] [id number] [address] [place] [address], [place] [address] SP 17 Sep, 2012 SP [facility] [address] [id number] [address] [place] [address], [place] [address] SP 15 Sep, 2012 SP [facility] [address] [id number] [address] [place] [address], [place] [address] SP 14 Sep, 2012 SP [facility] [address] [id number] [address] [place] [address], [place] [address] SP Sep, SP [facility] [address] [id number] [address] [place] [address], [place] [address] SP Sep, SP [facility] [address] [id number] [address] [place] [address], [place] [address] SP Sep, SP [facility] [address] [id number] [address] [place] [address], [place] [address] SP Sep, SP [facility] [address] [id number] [address] [place] [address], [place] [address] SP Sep, SP [facility] [address] [id number] [address] [place] [address], [place] [address] SP Sep, SP [facility] [address] [id number] [address] [place] [address], [place] [address] SP Sep, SP [facility] [address] [id number] [address] [place] [address], [place] [address] SP Aug, SP [facility] [address] [id number] [address] [place] [address], [place] [address] SP Aug, SP [facility] [address] [id number] [address] [place] [address], [place] [address] SP Aug, SP [facility] [address] [id number] [address] [place] [address], [place] [address] SP Aug, SP [facility] [address] [id number] [address] [place] [address], [place] [address] SP Aug, SP [facility] [address] [id number] [address] [place] [address], [place] [address] SP Jul, SP [facility] [address] [id number] [address] [place] [address], [place] [address] SP Jul, SP [facility] [address] [id number] [address] [place] [address], [place] [address] SP Jul, SP [facility] [address] [id number] [address] [place] [address], [place] [address] SP Jul, SP [facility] [address] [id number] [address] [place] [address], [place] [address] SP Jul, SP [facility] [address] [id number] [address] [place] [address], [place] [address] SP Jul, SP [facility] [address] [id number] [address] [place] [address], [place] [address] SP Jun, SP [facility] [address] [id number] [address] [place] [address], [place] [address] SP May, SP [facility] [address] [id number] [address] [place] [address], [place] [address] SP May, SP [facility] [address] [id number] [address] [place] [address], [place] [address] SP Apr, SP [facility] [address] [id number] [address] [place] [address], [place] [address] SP Apr, SP [facility] [address] [id number] [address] [place] [address], [place] [address] SP Apr, SP [facility] [address] [id number] [address] [place] [address], [place] [address] SP Apr, SP [facility] [address] [id number] [address] [place] [address], [place] [address] SP Mar, SP [facility] [address] [id number] [address] [place] [address], [place] [address] SP Mar, SP [facility] [address] [id number] [address] [place] [address], [place] [address] SP February, SP [facility] [address] [id number] [address] [place] [address], [place] [address] SP February, SP [facility] [address] [id number] [address] [place] [address], [place] [address] SP February, SP [facility] [address] [id number] [address] [place] [address], [place] [address] SP Jan, SP [facility] [address] [id number] [address] [place] [address], [place] [address] SP Jan, SP [facility] [address] [id number] [address] [place] [address], [place] [address] SP Dec, SP [facility] [address] [id number] [address] [place] [address], [place] [address] SP Dec, SP [facility] [address] [id number] [address] [place] [address], [place] [address] SP Dec, SP [facility] [address] [id number] [address] [place] [address], [place] [address] SP Dec, SP [facility] [address] [id number] [address] [place] [address], [place] [address] SP Nov, SP [facility] [address] [id number] [address] [place] [address], [place] [address] SP Nov, SP [facility] [address] [id number] [address] [place] [address], [place] [address] SP Oct, SP [facility] [address] [id number] [address] [place] [id number] SP Oct, SP [facility] [address] [id number] [address] [place] [id number] SP Oct, SP [facility] [address] [id number] [address] [place] [id number] SP Oct, SP [facility] [address] [id number] [address] [place] [id number] SP Oct, SP [facility] [address] [id number] [address] [place] [id number] SP Oct, SP [facility] [address] [id number] [address] [place] [id number] SP Oct, SP [facility] [address] [id number] [address] [place] [phone] SP Oct, SP [facility] [address] [id number] [address] [place] [phone] SP Oct, SP [facility] [address] [id number] [address] [place] [id number] SP Sep, SP [facility] [address] [id number] [address] [place] [id number] SP Sep, SP [facility] [address] [id number] [address] [place] [phone] SP Sep, SP [facility] [address] [id number] [address] [place] [id number] SP Apr, SP [facility] [address] [id number] [address] [place] [id number] SP February, SP [facility] [address] [id number] [address] [place] [id number] SP February, SP IMMUNIZATIONS No Known Immunizations SOCIAL HISTORY Never Assessed REASON FOR VISIT EMR-[facility] [place] PLAN OF CARE VITAL SIGNS MEDICATIONS Unknown Medications RESULTS No Results PROCEDURES No Known procedures INSTRUCTIONS MEDICATIONS ADMINISTERED No Known Medications MEDICAL (GENERAL) HISTORY Type Description Date POS Medical History chronic pain SP Medical History Arthritis SP Surgical History No know Surgical history SP Hospitalization History liver abscess SP
--- OUTSIDE RECORDS SUMMARY | 2019-08-21 18:39 | XMS REPORT ---
Author Author Migration, Doctor POS Organization [facility] SP Address Unknown SP Phone Unavailable SP Care Team Providers Care Dermatology Teacher Name Role Phone POS Migration, Doctor Unavailable Unavailable SP PROBLEMS Type Condition ICD9-CM Code ROF50-GH Code Onset Dates Condition S tatus SNOMED POS Problem Erectile dysfunction due to diseases classified elsewhere N52.1 POS [id number] SP Problem Mixed hyperlipidemia E78.2 Active [id number] SP Problem Rheumatoid arthritis involvi ng multiple sites with positive rheumatoid SP M05.79 Active [id number] SP Problem Cigarette nicotine dependence without complication F17.210 Active SP ALLERGIES No Information ENCOUNTERS Encounter Location Date Diagnosis POS [facility] WALK IN CARE [address] [facility] [id number] [address] [place] [address] SP Oct, Chest pain R07.9 SP [facility] WALK IN [facility] [address] [id number] [address] [place] [address] SP Oct, Chest wall pain R07.89 SP [facility] [address] [facility] [id number] [address] [place] [phone] SP Apr, Rheumatoid arthritis involvi ng multiple sites with positive SP factor M05.79 and Mixed hyperlipidemia E78.2 [facility] [address] [facility] [id number] [address] [place] [phone] SP May, Mixed hyperlipidemia E78.2 SP [facility] [address] [id number] [address] [place] [phone] SP May, Mixed hyperlipidemia E78.2 ; Rheumatoid arthritis involving SP sites with positive rheumatoid factor M05.79 ; Erectile dysfunction due to diseases classified elsewhere N52.1 ; Routine adult health maintenance Z00.00 and Cigarette nicotine dependence without complication F17.210 [facility] [address] [facility] [id number] [address] [place] [phone] SP Aug, SP [facility] [address] [facility] [id number] [address] [place] [phone] SP Aug, Chest wall pain R07.89 and R heumatoid arthritis involving SP sites with positive rheumatoid factor M05.79 [facility] [address] [facility] [id number] [address] [place] [phone] SP Jun, Rheumatoid arthritis 714.0 a nd Chronic hepatitis C with hepatic SP 070.44 [facility] [address] [facility] [id number] [address] [place] [phone] SP Jun, SP [facility] [address] [facility] [id number] [address] [place] [phone] SP 14 Jan, 2015 SP [facility] [address] [facility] [id number] [address] [place] [phone] SP Jan, SP [facility] [address] [facility] [id number] [address] [place] [phone] SP Sep, SP [facility] [address] [facility] [id number] [address] [place] [phone] SP Sep, SP [facility] [address] [facility] [id number] [address] [place] [phone] SP Sep, SP [facility] [address] [facility] [id number] [address] [place] [phone] SP Sep, SP [facility] [address] [facility] [id number] [address] [place] [phone] SP May, SP [facility] [address] [facility] [id number] [address] [place] [phone] SP May, SP [facility] [address] [facility] [id number] [address] [place] [phone] SP Mar, SP [facility] [address] [facility] [id number] [address] [place] [phone] SP Mar, SP [facility] [address] [facility] [id number] [address] [place] [phone] SP Mar, SP [facility] [address] [id number] [address] [place] [address], [place] [address] SP February, SP [facility] [address] [id number] [address] [place] [address], [place] [address] SP February, SP [facility] [address] [id number] [address] [place] [address], [place] [address] SP February, SP [facility] [address] [id number] [address] [place] [address], [place] [address] SP February, SP [facility] [address] [id number] [address] [place] [address], [place] [address] SP Oct, SP [facility] [address] [id number] [address] [place] [address], [place] [address] SP Oct, SP [facility] [address] [id number] [address] [place] [address], [place] [address] SP Sep, SP [facility] [address] [id number] [address] [place] [address], [place] [address] SP Sep, SP [facility] [address] [id number] [address] [place] [address], [place] [address] SP Jul, SP [facility] [address] [id number] [address] [place] [address], [place] [address] SP Jul, SP [facility] [address] [id number] [address] [place] [address], [place] [address] SP Jul, SP [facility] [address] [id number] [address] [place] [address], [place] [address] SP Jul, SP [facility] [address] [id number] [address] [place] [address], [place] [address] SP May, SP [facility] [address] [id number] [address] [place] [address], [place] [address] SP May, SP [facility] [address] [id number] [address] [place] [address], [place] [address] SP May, SP [facility] [address] [id number] [address] [place] [address], [place] [address] SP May, SP [facility] [address] [id number] [address] [place] [address], [place] [address] SP May, SP [facility] [address] [id number] [address] [place] [address], [place] [address] SP Mar, SP [facility] [address] [id number] [address] [place] [address], [place] [address] SP Mar, SP [facility] [address] [id number] [address] [place] [address], [place] [address] SP Dec, SP [facility] [address] [id number] [address] [place] [address], [place] [address] SP Dec, SP [facility] [address] [id number] [address] [place] [address], [place] [address] SP Dec, SP [facility] [address] [id number] [address] [place] [address], [place] [address] SP Dec, SP [facility] [address] [id number] [address] [place] [address], [place] [address] SP Nov, SP [facility] [address] [id number] [address] [place] [address], [place] [address] SP Nov, SP [facility] [address] [id number] [address] [place] [address], [place] [address] SP Nov, SP [facility] [address] [id number] [address] [place] [address], [place] [address] SP Nov, SP [facility] [address] [id number] [address] [place] [address], [place] [address] SP Oct, SP [facility] [address] [id number] [address] [place] [address], [place] [address] SP Oct, SP [facility] [address] [id number] [address] [place] [address], [place] [address] SP 18 Sep, 2012 SP [facility] [address] [id number] [address] [place] [address], [place] [address] SP 18 Sep, 2012 SP [facility] [address] [id number] [address] [place] [address], [place] [address] SP 17 Sep, 2012 SP [facility] [address] [id number] [address] [place] [address], [place] [address] SP 15 Sep, 2012 SP [facility] [address] [id number] [address] [place] [address], [place] [address] SP 14 Sep, 2012 SP [facility] [address] [id number] [address] [place] [address], [place] [address] SP Sep, SP [facility] [address] [id number] [address] [place] [address], [place] [address] SP Sep, SP [facility] [address] [id number] [address] [place] [address], [place] [address] SP Sep, SP [facility] [address] [id number] [address] [place] [address], [place] [address] SP Sep, SP [facility] [address] [id number] [address] [place] [address], [place] [address] SP Sep, SP [facility] [address] [id number] [address] [place] [address], [place] [address] SP Sep, SP [facility] [address] [id number] [address] [place] [address], [place] [address] SP Sep, SP [facility] [address] [id number] [address] [place] [address], [place] [address] SP Aug, SP [facility] [address] [id number] [address] [place] [address], [place] [address] SP Aug, SP [facility] [address] [id number] [address] [place] [address], [place] [address] SP Aug, SP [facility] [address] [id number] [address] [place] [address], [place] [address] SP Aug, SP [facility] [address] [id number] [address] [place] [address], [place] [address] SP Aug, SP [facility] [address] [id number] [address] [place] [address], [place] [address] SP Jul, SP [facility] [address] [id number] [address] [place] [address], [place] [address] SP Jul, SP [facility] [address] [id number] [address] [place] [address], [place] [address] SP Jul, SP [facility] [address] [id number] [address] [place] [address], [place] [address] SP Jul, SP [facility] [address] [id number] [address] [place] [address], [place] [address] SP Jul, SP [facility] [address] [id number] [address] [place] [address], [place] [address] SP Jul, SP [facility] [address] [id number] [address] [place] [address], [place] [address] SP Jun, SP [facility] [address] [id number] [address] [place] [address], [place] [address] SP May, SP [facility] [address] [id number] [address] [place] [address], [place] [address] SP May, SP [facility] [address] [id number] [address] [place] [address], [place] [address] SP Apr, SP [facility] [address] [id number] [address] [place] [address], [place] [address] SP Apr, SP [facility] [address] [id number] [address] [place] [address], [place] [address] SP Apr, SP [facility] [address] [id number] [address] [place] [address], [place] [address] SP Apr, SP [facility] [address] [id number] [address] [place] [address], [place] [address] SP Mar, SP [facility] [address] [id number] [address] [place] [address], [place] [address] SP Mar, SP [facility] [address] [id number] [address] [place] [address], [place] [address] SP February, SP [facility] [address] [id number] [address] [place] [address], [place] [address] SP February, SP [facility] [address] [id number] [address] [place] [address], [place] [address] SP February, SP [facility] [address] [id number] [address] [place] [address], [place] [address] SP Jan, SP [facility] [address] [id number] [address] [place] [address], [place] [address] SP Jan, SP [facility] [address] [id number] [address] [place] [address], [place] [address] SP Dec, SP [facility] [address] [id number] [address] [place] [address], [place] [address] SP Dec, SP [facility] [address] [id number] [address] [place] [address], [place] [address] SP Dec, SP [facility] [address] [id number] [address] [place] [address], [place] [address] SP Dec, SP [facility] [address] [id number] [address] [place] [address], [place] [address] SP Nov, SP [facility] [address] [id number] [address] [place] [address], [place] [address] SP Nov, SP [facility] [address] [id number] [address] [place] [address], [place] [address] SP Oct, SP [facility] [address] [id number] [address] [place] [address] SP Oct, SP [facility] [address] [id number] [address] [place] [address] SP Oct, SP [facility] [address] [id number] [address] [place] [address] SP Oct, SP [facility] [address] [id number] [address] [place] [address] SP Oct, SP [facility] [address] [id number] [address] [place] [address] SP Oct, SP [facility] [address] [id number] [address] [place] [address] SP Oct, SP [facility] [address] [facility] [id number] [address] [place] [address] SP Oct, SP [facility] [address] [facility] [id number] [address] [place] [address] SP Oct, SP [facility] [address] [facility] [id number] [address] [place] [id number] SP Sep, SP [facility] [address] [facility] [id number] [address] [place] [address] SP Sep, SP [facility] [address] [facility] [id number] [address] [place] [address] SP Sep, SP [facility] [address] [id number] [address] [place] [address] SP Apr, SP [facility] [address] [id number] [address] [place] [address] SP February, SP [facility] [address] [facility] [id number] [address] [place] [address] SP February, SP IMMUNIZATIONS No Known Immunizations SOCIAL HISTORY Never Assessed REASON FOR VISIT EMR-[facility] PLAN OF CARE VITAL SIGNS MEDICATIONS Unknown Medications RESULTS No Results PROCEDURES No Known procedures INSTRUCTIONS MEDICATIONS ADMINISTERED No Known Medications MEDICAL (GENERAL) HISTORY Type Description Date POS Medical History chronic pain SP Medical History Arthritis SP Surgical History No know Surgical history SP Hospitalization History liver abscess SP
--- OUTSIDE RECORDS SUMMARY | 2019-08-21 18:40 | XMS REPORT ---
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 Name Role Phone POS Migration, Doctor Unavailable Unavailable SP PROBLEMS Type Condition ICD9-CM Code AEL90-WP Code Onset Dates Condition S tatus SNOMED POS Problem Erectile dysfunction due to diseases classified elsewhere N52.1 POS [id number] SP Problem Mixed hyperlipidemia E78.2 Active [id number] SP Problem Rheumatoid arthritis involvi ng multiple sites with positive rheumatoid SP M05.79 Active [id number] SP Problem Cigarette nicotine dependence without complication F17.210 Active SP ALLERGIES No Information ENCOUNTERS Encounter Location Date Diagnosis POS [facility] [address] [facility] [id number] [address] [place] [address] SP Oct, Chest pain R07.9 SP [facility] [address] [id number] [address] [place] [address] SP Oct, Chest wall pain R07.89 SP [facility] [address] [facility] [id number] [address] [place] [address] SP Apr, Rheumatoid arthritis involvi ng multiple sites with positive SP factor M05.79 and Mixed hyperlipidemia E78.2 [facility] [address] [facility] [id number] [address] [place] [address] SP May, Mixed hyperlipidemia E78.2 SP [facility] [address] [id number] [address] [place] [address] SP May, Mixed hyperlipidemia E78.2 ; Rheumatoid arthritis involving SP sites with positive rheumatoid factor M05.79 ; Erectile dysfunction due to diseases classified elsewhere N52.1 ; Routine adult health maintenance Z00.00 and Cigarette nicotine dependence without complication F17.210 [facility] [address] [facility] [id number] [address] [place] [address] SP Aug, SP [facility] [address] [facility] [id number] [address] [place] [address] SP Aug, Chest wall pain R07.89 and R heumatoid arthritis involving SP sites with positive rheumatoid factor M05.79 [facility] [address] [facility] [id number] [address] [place] [address] SP Jun, Rheumatoid arthritis 714.0 a nd Chronic hepatitis C with hepatic SP 070.44 [facility] [address] [facility] [id number] [address] [place] [address] SP Jun, SP [facility] [address] [facility] [id number] [address] [place] [address] SP 14 Jan, 2015 SP [facility] [address] [facility] [id number] [address] [place] [address] SP Jan, SP [facility] [address] [facility] [id number] [address] [place] [address] SP Sep, SP [facility] [address] [facility] [id number] [address] [place] [address] SP Sep, SP [facility] [address] [facility] [id number] [address] [place] [address] SP Sep, SP [facility] [address] [facility] [id number] [address] [place] [address] SP Sep, SP [facility] [address] [facility] [id number] [address] [place] [address] SP May, SP [facility] [address] [facility] [id number] [address] [place] [address] SP May, SP [facility] [address] [facility] [id number] [address] [place] [address] SP Mar, SP [facility] [address] [facility] [id number] [address] [place] [address] SP Mar, SP [facility] [address] [facility] [id number] [address] [place] [address] SP Mar, SP [facility] [address] [id number] [address] [place] [address], [place] [address] SP February, SP [facility] [address] [id number] [address] [place] [address], [place] [address] SP February, SP [facility] [address] [id number] [address] [place] [address], [place] [address] SP February, SP [facility] [address] [id number] [address] [place] [address], [place] [address] SP February, SP [facility] [address] [id number] [address] [place] [address], [place] [address] SP Oct, SP [facility] [address] [id number] [address] [place] [address], [place] [address] SP Oct, SP [facility] [address] [id number] [address] [place] [address], [place] [address] SP Sep, SP [facility] [address] [id number] [address] [place] [address], [place] [address] SP Sep, SP [facility] [address] [id number] [address] [place] [address], [place] [address] SP Jul, SP [facility] [address] [id number] [address] [place] [address], [place] [address] SP Jul, SP [facility] [address] [id number] [address] [place] [address], [place] [address] SP Jul, SP [facility] [address] [id number] [address] [place] [address], [place] [address] SP Jul, SP [facility] [address] [id number] [address] [place] [address], [place] [address] SP May, SP [facility] [address] [id number] [address] [place] [address], [place] [address] SP May, SP [facility] [address] [id number] [address] [place] [address], [place] [address] SP May, SP [facility] [address] [id number] [address] [place] [address], [place] [address] SP May, SP [facility] [address] [id number] [address] [place] [address], [place] [address] SP May, SP [facility] [address] [id number] [address] [place] [address], [place] [address] SP Mar, SP [facility] [address] [id number] [address] [place] [address], [place] [address] SP Mar, SP [facility] [address] [id number] [address] [place] [address], [place] [address] SP Dec, SP [facility] [address] [id number] [address] [place] [address], [place] [address] SP Dec, SP [facility] [address] [id number] [address] [place] [address], [place] [address] SP Dec, SP [facility] [address] [id number] [address] [place] [address], [place] [address] SP Dec, SP [facility] [address] [id number] [address] [place] [address], [place] [address] SP Nov, SP [facility] [address] [id number] [address] [place] [address], [place] [address] SP Nov, SP [facility] [address] [id number] [address] [place] [address], [place] [address] SP Nov, SP [facility] [address] [id number] [address] [place] [address], [place] [address] SP Nov, SP [facility] [address] [id number] [address] [place] [address], [place] [address] SP Oct, SP [facility] [address] [id number] [address] [place] [address], [place] [address] SP Oct, SP [facility] [address] [id number] [address] [place] [address], [place] [address] SP 18 Sep, 2012 SP [facility] [address] [id number] [address] [place] [address], [place] [address] SP 18 Sep, 2012 SP [facility] [address] [id number] [address] [place] [address], [place] [address] SP 17 Sep, 2012 SP [facility] [address] [id number] [address] [place] [address], [place] [address] SP 15 Sep, 2012 SP [facility] [address] [id number] [address] [place] [address], [place] [address] SP 14 Sep, 2012 SP [facility] [address] [id number] [address] [place] [address], [place] [address] SP Sep, SP [facility] [address] [id number] [address] [place] [address], [place] [address] SP Sep, SP [facility] [address] [id number] [address] [place] [address], [place] [address] SP Sep, SP [facility] [address] [id number] [address] [place] [address], [place] [address] SP Sep, SP [facility] [address] [id number] [address] [place] [address], [place] [address] SP Sep, SP [facility] [address] [id number] [address] [place] [address], [place] [address] SP Sep, SP [facility] [address] [id number] [address] [place] [address], [place] [address] SP Sep, SP [facility] [address] [id number] [address] [place] [address], [place] [address] SP Aug, SP [facility] [address] [id number] [address] [place] [address], [place] [address] SP Aug, SP [facility] [address] [id number] [address] [place] [address], [place] [address] SP Aug, SP [facility] [address] [id number] [address] [place] [address], [place] [address] SP Aug, SP [facility] [address] [id number] [address] [place] [address], [place] [address] SP Aug, SP [facility] [address] [id number] [address] [place] [address], [place] [address] SP Jul, SP [facility] [address] [id number] [address] [place] [address], [place] [address] SP Jul, SP [facility] [address] [id number] [address] [place] [address], [place] [address] SP Jul, SP [facility] [address] [id number] [address] [place] [address], [place] [address] SP Jul, SP [facility] [address] [id number] [address] [place] [address], [place] [address] SP Jul, SP [facility] [address] [id number] [address] [place] [address], [place] [address] SP Jul, SP [facility] [address] [id number] [address] [place] [address], [place] [address] SP Jun, SP [facility] [address] [id number] [address] [place] [address], [place] [address] SP May, SP [facility] [address] [id number] [address] [place] [address], [place] [address] SP May, SP [facility] [address] [id number] [address] [place] [address], [place] [address] SP Apr, SP [facility] [address] [id number] [address] [place] [address], [place] [address] SP Apr, SP [facility] [address] [id number] [address] [place] [address], [place] [address] SP Apr, SP [facility] [address] [id number] [address] [place] [address], [place] [address] SP Apr, SP [facility] [address] [id number] [address] [place] [address], [place] [address] SP Mar, SP [facility] [address] [id number] [address] [place] [address], [place] [address] SP Mar, SP [facility] [address] [id number] [address] [place] [address], [place] [address] SP February, SP [facility] [address] [id number] [address] [place] [address], [place] [address] SP February, SP [facility] [address] [id number] [address] [place] [address], [place] [address] SP February, SP [facility] [address] [id number] [address] [place] [address], [place] [address] SP Jan, SP [facility] [address] [id number] [address] [place] [address], [place] [address] SP Jan, SP [facility] [address] [id number] [address] [place] [address], [place] [address] SP Dec, SP [facility] [address] [id number] [address] [place] [address], [place] [address] SP Dec, SP [facility] [address] [id number] [address] [place] [address], [place] [address] SP Dec, SP [facility] [address] [id number] [address] [place] [address], [place] [address] SP Dec, SP [facility] [address] [id number] [address] [place] [address], [place] [address] SP Nov, SP [facility] [address] [id number] [address] [place] [address], [place] [address] SP Nov, SP [facility] [address] [id number] [address] [place] [address], [place] [address] SP Oct, SP [facility] [address] [id number] [address] [place] [address] SP Oct, SP [facility] [address] [id number] [address] [place] [address] SP Oct, SP [facility] [address] [id number] [address] [place] [address] SP Oct, SP [facility] [address] [id number] [address] [place] [address] SP Oct, SP [facility] [address] [id number] [address] [place] [address] SP Oct, SP [facility] [address] [id number] [address] [place] [address] SP Oct, SP [facility] [address] [facility] [id number] [address] [place] [address] SP Oct, SP [facility] [address] [facility] [id number] [address] [place] [address] SP Oct, SP [facility] [address] [facility] [id number] [address] [place] [address] SP Sep, SP [facility] [address] [facility] [id number] [address] [place] [address] SP Sep, SP [facility] [address] [facility] [id number] [address] [place] [address] SP Sep, SP [facility] [address] [id number] [address] [place] [address] SP Apr, SP [facility] [address] [id number] [address] [place] [address] SP February, SP [facility] [address] [facility] [id number] [address] [place] [address] SP February, SP IMMUNIZATIONS No Known Immunizations SOCIAL HISTORY Never Assessed REASON FOR VISIT EMR-[facility] PLAN OF CARE VITAL SIGNS MEDICATIONS Unknown Medications RESULTS No Results PROCEDURES No Known procedures INSTRUCTIONS MEDICATIONS ADMINISTERED No Known Medications MEDICAL (GENERAL) HISTORY Type Description Date POS Medical History chronic pain SP Medical History Arthritis SP Surgical History No know Surgical history SP Hospitalization History liver abscess SP
--- OUTSIDE RECORDS SUMMARY | 2019-08-21 18:40 | XMS REPORT ---
Author Author Migration, Doctor POS Organization [facility] SP Address Unknown SP Phone Unavailable SP Care Team Providers Care Lopper Name Role Phone POS Migration, Doctor Unavailable Unavailable SP PROBLEMS Type Condition ICD9-CM Code FLE86-OY Code Onset Dates Condition S tatus SNOMED POS Problem Erectile dysfunction due to diseases classified elsewhere N52.1 POS [id number] SP Problem Mixed hyperlipidemia E78.2 Active [id number] SP Problem Rheumatoid arthritis involvi ng multiple sites with positive rheumatoid SP M05.79 Active [id number] SP Problem Cigarette nicotine dependence without complication F17.210 Active SP ALLERGIES No Information ENCOUNTERS Encounter Location Date Diagnosis POS [facility] [address] [facility] [id number] [address] [place] [address] SP Oct, Chest pain R07.9 SP [facility] [address] [id number] [address] [place] [address] SP Oct, Chest wall pain R07.89 SP [facility] [address] [facility] [facility] [id number] [address] [place] [phone] SP Apr, Rheumatoid arthritis involvi ng multiple sites with positive SP factor M05.79 and Mixed hyperlipidemia E78.2 [facility] [address] [facility] [facility] [id number] [address] [place] [phone] SP May, Mixed hyperlipidemia E78.2 SP [facility] [address] [id number] [address] [place] [phone] SP May, Mixed hyperlipidemia E78.2 ; Rheumatoid arthritis involving SP sites with positive rheumatoid factor M05.79 ; Erectile dysfunction due to diseases classified elsewhere N52.1 ; Routine adult health maintenance Z00.00 and Cigarette nicotine dependence without complication F17.210 [facility] [address] [facility] [facility] [id number] [address] [place] [phone] SP Aug, SP [facility] [address] [id number] [address] [place] [phone] SP Aug, Chest wall pain R07.89 and R heumatoid arthritis involving SP sites with positive rheumatoid factor M05.79 [facility] [address] [facility] [facility] [id number] [address] [place] [phone] SP Jun, Rheumatoid arthritis 714.0 a nd Chronic hepatitis C with hepatic SP 070.44 [facility] [address] [facility] [facility] [id number] [address] [place] [phone] SP Jun, SP [facility] [address] [facility] [facility] [id number] [address] [place] [phone] SP 14 Jan, 2015 SP [facility] [address] [facility] [facility] [id number] [address] [place] [phone] SP Jan, SP [facility] [address] [facility] [facility] [id number] [address] [place] [phone] SP Sep, SP [facility] [address] [facility] [facility] [id number] [address] [place] [phone] SP Sep, SP [facility] [address] [facility] [facility] [id number] [address] [place] [phone] SP Sep, SP [facility] [address] [facility] [facility] [id number] [address] [place] [phone] SP Sep, SP [facility] [address] [facility] [facility] [id number] [address] [place] [phone] SP May, SP [facility] [address] [facility] [facility] [id number] [address] [place] [phone] SP May, SP [facility] [address] [facility] [facility] [id number] [address] [place] [phone] SP Mar, SP [facility] [address] [facility] [facility] [id number] [address] [place] [phone] SP Mar, SP [facility] [address] [facility] [facility] [id number] [address] [place] [phone] SP Mar, SP [facility] [address] [id number] [address] [place] [address], [place] [address] SP February, SP [facility] [address] [id number] [address] [place] [address], [place] [address] SP February, SP [facility] [address] [id number] [address] [place] [address], [place] [address] SP February, SP [facility] [address] [id number] [address] [place] [address], [place] [address] SP February, SP [facility] [address] [id number] [address] [place] [address], [place] [address] SP Oct, SP [facility] [address] [id number] [address] [place] [address], [place] [address] SP Oct, SP [facility] [address] [id number] [address] [place] [address], [place] [address] SP Sep, SP [facility] [address] [id number] [address] [place] [address], [place] [address] SP Sep, SP [facility] [address] [id number] [address] [place] [address], [place] [address] SP Jul, SP [facility] [address] [id number] [address] [place] [address], [place] [address] SP Jul, SP [facility] [address] [id number] [address] [place] [address], [place] [address] SP Jul, SP [facility] [address] [id number] [address] [place] [address], [place] [address] SP Jul, SP [facility] [address] [id number] [address] [place] [address], [place] [address] SP May, SP [facility] [address] [id number] [address] [place] [address], [place] [address] SP May, SP [facility] [address] [id number] [address] [place] [address], [place] [address] SP May, SP [facility] [address] [id number] [address] [place] [address], [place] [address] SP May, SP [facility] [address] [id number] [address] [place] [address], [place] [address] SP May, SP [facility] [address] [id number] [address] [place] [address], [place] [address] SP Mar, SP [facility] [address] [id number] [address] [place] [address], [place] [address] SP Mar, SP [facility] [address] [id number] [address] [place] [address], [place] [address] SP Dec, SP [facility] [address] [id number] [address] [place] [address], [place] [address] SP Dec, SP [facility] [address] [id number] [address] [place] [address], [place] [address] SP Dec, SP [facility] [address] [id number] [address] [place] [address], [place] [address] SP Dec, SP [facility] [address] [id number] [address] [place] [address], [place] [address] SP Nov, SP [facility] [address] [id number] [address] [place] [address], [place] [address] SP Nov, SP [facility] [address] [id number] [address] [place] [address], [place] [address] SP Nov, SP [facility] [address] [id number] [address] [place] [address], [place] [address] SP Nov, SP [facility] [address] [id number] [address] [place] [address], [place] [address] SP Oct, SP [facility] [address] [id number] [address] [place] [address], [place] [address] SP Oct, SP [facility] [address] [id number] [address] [place] [address], [place] [address] SP 18 Sep, 2012 SP [facility] [address] [id number] [address] [place] [address], [place] [address] SP 18 Sep, 2012 SP [facility] [address] [id number] [address] [place] [address], [place] [address] SP 17 Sep, 2012 SP [facility] [address] [id number] [address] [place] [address], [place] [address] SP 15 Sep, 2012 SP [facility] [address] [id number] [address] [place] [address], [place] [address] SP 14 Sep, 2012 SP [facility] [address] [id number] [address] [place] [address], [place] [address] SP Sep, SP [facility] [address] [id number] [address] [place] [address], [place] [address] SP Sep, SP [facility] [address] [id number] [address] [place] [address], [place] [address] SP Sep, SP [facility] [address] [id number] [address] [place] [address], [place] [address] SP Sep, SP [facility] [address] [id number] [address] [place] [address], [place] [address] SP Sep, SP [facility] [address] [id number] [address] [place] [address], [place] [address] SP Sep, SP [facility] [address] [id number] [address] [place] [address], [place] [address] SP Sep, SP [facility] [address] [id number] [address] [place] [address], [place] [address] SP Aug, SP [facility] [address] [id number] [address] [place] [address], [place] [address] SP Aug, SP [facility] [address] [id number] [address] [place] [address], [place] [address] SP Aug, SP [facility] [address] [id number] [address] [place] [address], [place] [address] SP Aug, SP [facility] [address] [id number] [address] [place] [address], [place] [address] SP Aug, SP [facility] [address] [id number] [address] [place] [address], [place] [address] SP Jul, SP [facility] [address] [id number] [address] [place] [address], [place] [address] SP Jul, SP [facility] [address] [id number] [address] [place] [address], [place] [address] SP Jul, SP [facility] [address] [id number] [address] [place] [address], [place] [address] SP Jul, SP [facility] [address] [id number] [address] [place] [address], [place] [address] SP Jul, SP [facility] [address] [id number] [address] [place] [address], [place] [address] SP Jul, SP [facility] [address] [id number] [address] [place] [address], [place] [address] SP Jun, SP [facility] [address] [id number] [address] [place] [address], [place] [address] SP May, SP [facility] [address] [id number] [address] [place] [address], [place] [address] SP May, SP [facility] [address] [id number] [address] [place] [address], [place] [address] SP Apr, SP [facility] [address] [id number] [address] [place] [address], [place] [address] SP Apr, SP [facility] [address] [id number] [address] [place] [address], [place] [address] SP Apr, SP [facility] [address] [id number] [address] [place] [address], [place] [address] SP Apr, SP [facility] [address] [id number] [address] [place] [address], [place] [address] SP Mar, SP [facility] [address] [id number] [address] [place] [address], [place] [address] SP Mar, SP [facility] [address] [id number] [address] [place] [address], [place] [address] SP February, SP [facility] [address] [id number] [address] [place] [address], [place] [address] SP February, SP [facility] [address] [id number] [address] [place] [address], [place] [address] SP February, SP [facility] [address] [id number] [address] [place] [address], [place] [address] SP Jan, SP [facility] [address] [id number] [address] [place] [address], [place] [address] SP Jan, SP [facility] [address] [id number] [address] [place] [address], [place] [address] SP Dec, SP [facility] [address] [id number] [address] [place] [address], [place] [address] SP Dec, SP [facility] [address] [id number] [address] [place] [address], [place] [address] SP Dec, SP [facility] [address] [id number] [address] [place] [address], [place] [address] SP Dec, SP [facility] [address] [id number] [address] [place] [address], [place] [address] SP Nov, SP [facility] [address] [id number] [address] [place] [address], [place] [address] SP Nov, SP [facility] [address] [id number] [address] [place] [address], [place] [address] SP Oct, SP [facility] [address] [id number] [address] [place] [phone] SP Oct, SP [facility] [address] [id number] [address] [place] [phone] SP Oct, SP [facility] [address] [id number] [address] [place] [phone] SP Oct, SP [facility] [address] [id number] [address] [place] [phone] SP Oct, SP [facility] [address] [id number] [address] [place] [phone] SP Oct, SP [facility] [address] [id number] [address] [place] [phone] SP Oct, SP [facility] [address] [facility] [id number] [address] [place] [phone] SP Oct, SP [facility] [address] [facility] [facility] [id number] [address] [place] [phone] SP Oct, SP [facility] [address] [facility] [facility] [id number] [address] [place] [phone] SP Sep, SP [facility] [address] [facility] [facility] [id number] [address] [place] [phone] SP Sep, SP [facility] [address] [facility] [facility] [id number] [address] [place] [phone] SP Sep, SP [facility] [address] [id number] [address] [place] [phone] SP Apr, SP [facility] [address] [id number] [address] [place] [phone] SP February, SP [facility] [address] [facility] [id number] [address] [place] [phone] SP February, SP IMMUNIZATIONS No Known Immunizations SOCIAL HISTORY Never Assessed REASON FOR VISIT [place] [place] V[place] SIGNS MEDICATIONS Unknown Medications RESULTS No Results PROCEDURES No Known procedures INSTRUCTIONS MEDICATIONS ADMINISTERED No Known Medications MEDICAL (GENERAL) HISTORY Type Description Date POS Medical History chronic pain SP Medical History Arthritis SP Surgical History No know Surgical history SP Hospitalization History liver abscess SP
--- OUTSIDE RECORDS SUMMARY | 2019-08-21 18:40 | XMS REPORT ---
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 Name Role Phone POS Migration, Doctor Unavailable Unavailable SP PROBLEMS Type Condition ICD9-CM Code WWD24-VU Code Onset Dates Condition S tatus SNOMED POS Problem Erectile dysfunction due to diseases classified elsewhere N52.1 POS [id number] SP Problem Mixed hyperlipidemia E78.2 Active [id number] SP Problem Rheumatoid arthritis involvi ng multiple sites with positive rheumatoid SP M05.79 Active [id number] SP Problem Cigarette nicotine dependence without complication F17.210 Active SP ALLERGIES No Information ENCOUNTERS Encounter Location Date Diagnosis POS [facility] WALK IN [facility] [address] [facility] [id number] [address] [place] [address] SP Oct, Chest wall pain R07.89 SP [facility] [address] [facility] [id number] [address] [place] [phone] SP Apr, Rheumatoid arthritis involvi ng multiple sites with positive SP factor M05.79 and Mixed hyperlipidemia E78.2 [facility] [address] [facility] [id number] [address] [place] [phone] SP May, Mixed hyperlipidemia E78.2 SP [facility] [address] [facility] [id number] [address] [place] [phone] SP May, Mixed hyperlipidemia E78.2 ; Rheumatoid arthritis involving SP sites with positive rheumatoid factor M05.79 ; Erectile dysfunction due to diseases classified elsewhere N52.1 ; Routine adult health maintenance Z00.00 and Cigarette nicotine dependence without complication F17.210 [facility] [address] [facility] [id number] [address] [place] [phone] SP Aug, SP [facility] [address] [facility] [id number] [address] [place] [phone] SP Aug, Chest wall pain R07.89 and R heumatoid arthritis involving SP sites with positive rheumatoid factor M05.79 [facility] [address] [facility] [id number] [address] [place] [phone] SP 17 Jun, 2015 Rheumatoid arthritis 714.0 a nd Chronic hepatitis C with hepatic SP 070.44 [facility] [address] [id number] [address] [place] [phone] SP 08 Jun, 2015 SP [facility] [address] [id number] [address] [place] [phone] SP 14 Jan, 2015 SP [facility] [address] [id number] [address] [place] [phone] SP 13 Jan, 2015 SP [facility] [address] [id number] [address] [place] [phone] SP Sep, SP [facility] [address] [facility] [id number] [address] [place] [phone] SP Sep, SP [facility] [address] [facility] [id number] [address] [place] [phone] SP Sep, SP [facility] [address] [id number] [address] [place] [phone] SP Sep, SP [facility] [address] [id number] [address] [place] [phone] SP May, SP [facility] [address] [id number] [address] [place] [phone] SP May, SP [facility] [address] [id number] [address] [place] [phone] SP Mar, SP [facility] [address] [id number] [address] [place] [phone] SP Mar, SP [facility] [address] [facility] [id number] [address] [place] [phone] SP Mar, SP [facility] [address] [facility] [id number] [address] [place] [phone] SP February, SP [facility] [address] [id number] [address] [place] [address], [place] [address] SP February, SP [facility] [address] [id number] [address] [place] [address], [place] [address] SP February, SP [facility] [address] [id number] [address] [place] [address], [place] [address] SP February, SP [facility] [address] [id number] [address] [place] [address], [place] [address] SP Oct, SP [facility] [address] [id number] [address] [place] [address], [place] [address] SP Oct, SP [facility] [address] [id number] [address] [place] [address], [place] [address] SP Sep, SP [facility] [address] [id number] [address] [place] [address], [place] [address] SP Sep, SP [facility] [address] [id number] [address] [place] [address], [place] [address] SP Jul, SP [facility] [address] [id number] [address] [place] [address], [place] [address] SP Jul, SP [facility] [address] [id number] [address] [place] [address], [place] [address] SP Jul, SP [facility] [address] [id number] [address] [place] [address], [place] [address] SP Jul, SP [facility] [address] [id number] [address] [place] [address], [place] [address] SP May, SP [facility] [address] [id number] [address] [place] [address], [place] [address] SP May, SP [facility] [address] [id number] [address] [place] [address], [place] [address] SP May, SP [facility] [address] [id number] [address] [place] [address], [place] [address] SP May, SP [facility] [address] [id number] [address] [place] [address], [place] [address] SP May, SP [facility] [address] [id number] [address] [place] [address], [place] [address] SP Mar, SP [facility] [address] [id number] [address] [place] [address], [place] [address] SP Mar, SP [facility] [address] [id number] [address] [place] [address], [place] [address] SP Dec, SP [facility] [address] [id number] [address] [place] [address], [place] [address] SP Dec, SP [facility] [address] [id number] [address] [place] [address], [place] [address] SP Dec, SP [facility] [address] [id number] [address] [place] [address], [place] [address] SP Dec, SP [facility] [address] [id number] [address] [place] [address], [place] [address] SP Nov, SP [facility] [address] [id number] [address] [place] [address], [place] [address] SP Nov, SP [facility] [address] [id number] [address] [place] [address], [place] [address] SP Nov, SP [facility] [address] [id number] [address] [place] [address], [place] [address] SP Nov, SP [facility] [address] [id number] [address] [place] [address], [place] [address] SP Oct, SP [facility] [address] [id number] [address] [place] [address], [place] [address] SP Oct, SP [facility] [address] [id number] [address] [place] [address], [place] [address] SP Sep, SP [facility] [address] [id number] [address] [place] [address], [place] [address] SP 18 Sep, 2012 SP [facility] [address] [id number] [address] [place] [address], [place] [address] SP 17 Sep, 2012 SP [facility] [address] [id number] [address] [place] [address], [place] [address] SP 15 Sep, 2012 SP [facility] [address] [id number] [address] [place] [address], [place] [address] SP 14 Sep, 2012 SP [facility] [address] [id number] [address] [place] [address], [place] [address] SP 14 Sep, 2012 SP [facility] [address] [id number] [address] [place] [address], [place] [address] SP Sep, SP [facility] [address] [id number] [address] [place] [address], [place] [address] SP Sep, SP [facility] [address] [id number] [address] [place] [address], [place] [address] SP Sep, SP [facility] [address] [id number] [address] [place] [address], [place] [address] SP Sep, SP [facility] [address] [id number] [address] [place] [address], [place] [address] SP Sep, SP [facility] [address] [id number] [address] [place] [address], [place] [address] SP Sep, SP [facility] [address] [id number] [address] [place] [address], [place] [address] SP Aug, SP [facility] [address] [id number] [address] [place] [address], [place] [address] SP Aug, SP [facility] [address] [id number] [address] [place] [address], [place] [address] SP Aug, SP [facility] [address] [id number] [address] [place] [address], [place] [address] SP Aug, SP [facility] [address] [id number] [address] [place] [address], [place] [address] SP Aug, SP [facility] [address] [id number] [address] [place] [address], [place] [address] SP Jul, SP [facility] [address] [id number] [address] [place] [address], [place] [address] SP Jul, SP [facility] [address] [id number] [address] [place] [address], [place] [address] SP Jul, SP [facility] [address] [id number] [address] [place] [address], [place] [address] SP Jul, SP [facility] [address] [id number] [address] [place] [address], [place] [address] SP Jul, SP [facility] [address] [id number] [address] [place] [address], [place] [address] SP Jul, SP [facility] [address] [id number] [address] [place] [address], [place] [address] SP Jun, SP [facility] [address] [id number] [address] [place] [address], [place] [address] SP May, SP [facility] [address] [id number] [address] [place] [address], [place] [address] SP May, SP [facility] [address] [id number] [address] [place] [address], [place] [address] SP Apr, SP [facility] [address] [id number] [address] [place] [address], [place] [address] SP Apr, SP [facility] [address] [id number] [address] [place] [address], [place] [address] SP Apr, SP [facility] [address] [id number] [address] [place] [address], [place] [address] SP Apr, SP [facility] [address] [id number] [address] [place] [address], [place] [address] SP Mar, SP [facility] [address] [id number] [address] [place] [address], [place] [address] SP Mar, SP [facility] [address] [id number] [address] [place] [address], [place] [address] SP February, SP [facility] [address] [id number] [address] [place] [address], [place] [address] SP February, SP [facility] [address] [id number] [address] [place] [address], [place] [address] SP February, SP [facility] [address] [id number] [address] [place] [address], [place] [address] SP Jan, SP [facility] [address] [id number] [address] [place] [address], [place] [address] SP Jan, SP [facility] [address] [id number] [address] [place] [address], [place] [address] SP Dec, SP [facility] [address] [id number] [address] [place] [address], [place] [address] SP Dec, SP [facility] [address] [id number] [address] [place] [address], [place] [address] SP Dec, SP [facility] [address] [id number] [address] [place] [address], [place] [address] SP Dec, SP [facility] [address] [id number] [address] [place] [address], [place] [address] SP Nov, SP [facility] [address] [id number] [address] [place] [address], [place] [address] SP Nov, SP [facility] [address] [id number] [address] [place] [address], [place] [address] SP Oct, SP [facility] [address] [id number] [address] [place] [address], [place] [address] SP Oct, SP [facility] [address] [id number] [address] [place] [phone] SP Oct, SP [facility] [address] [id number] [address] [place] [phone] SP Oct, SP [facility] [address] [id number] [address] [place] [phone] SP Oct, SP [facility] [address] [id number] [address] [place] [phone] SP Oct, SP [facility] [address] [id number] [address] [place] [phone] SP Oct, SP [facility] [address] [id number] [address] [place] [phone] SP Oct, SP [facility] [address] [id number] [address] [place] [phone] SP Oct, SP [facility] [address] [id number] [address] [place] [phone] SP Sep, SP [facility] [address] [id number] [address] [place] [phone] SP Sep, SP [facility] [address] [id number] [address] [place] [phone] SP Sep, SP [facility] [address] [id number] [address] [place] [phone] SP Apr, SP [facility] [address] [id number] [address] [place] [phone] SP February, SP [facility] [address] [id number] [address] [place] [phone] SP February, SP IMMUNIZATIONS No Known Immunizations SOCIAL HISTORY Never Assessed REASON FOR VISIT EMR-[facility] PLAN OF CARE VITAL SIGNS MEDICATIONS No Known Medications RESULTS No Results PROCEDURES No Known procedures INSTRUCTIONS MEDICATIONS ADMINISTERED No Known Medications MEDICAL (GENERAL) HISTORY Type Description Date POS Medical History chronic pain SP Medical History Arthritis SP Surgical History No know Surgical history SP Hospitalization History liver abscess SP
--- OUTSIDE RECORDS SUMMARY | 2019-08-21 18:40 | XMS REPORT ---
Author Author YOKO LADD POS Organization [facility] SP Address [address] [place] [address] SP Care Team Providers Care Grain Trimmer Name Role Phone POS YOKO LADD Unavailable SP PROBLEMS Type Condition ICD9-CM Code SJA47-DY Code Onset Dates Condition S tatus SNOMED POS Problem Mixed hyperlipidemia E78.2 Active 577236535 POS Problem Erectile dysfunction due to diseases classified elsewhere N52.1 SP [id number] SP Problem Cigarette nicotine dependence without complication F17.210 Active SP Problem Rheumatoid arthritis involvi ng multiple sites with positive rheumatoid SP M05.79 Active [id number] SP ALLERGIES No Known Allergies ENCOUNTERS Encounter Location Date Diagnosis POS [facility] [address] [facility] [id number] [address] [place] [phone] SP Apr, Rheumatoid arthritis involvi ng multiple sites with positive SP factor M05.79 and Mixed hyperlipidemia E78.2 [facility] [address] [facility] [id number] [address] [place] [phone] SP May, Mixed hyperlipidemia E78.2 SP [facility] [address] [facility] [id number] [address] [place] [phone] SP May, Mixed hyperlipidemia E78.2 ; Rheumatoid arthritis involving SP sites with positive rheumatoid factor M05.79 ; Erectile dysfunction due to diseases classified elsewhere N52.1 ; Routine adult health maintenance Z00.00 and Cigarette nicotine dependence without complication F17.210 [facility] [address] [facility] [id number] [address] [place] [phone] SP Aug, SP [facility] [address] [facility] [id number] [address] [place] [phone] SP Aug, Chest wall pain R07.89 and R heumatoid arthritis involving SP sites with positive rheumatoid factor M05.79 [facility] [address] [id number] [address] [place] [phone] SP 17 Jun, 2015 Rheumatoid arthritis 714.0 a nd Chronic hepatitis C with hepatic SP 070.44 [facility] [address] [id number] [address] [place] [phone] SP 08 Jun, 2015 SP [facility] [address] [facility] [id number] [address] [place] [phone] SP 14 Jan, 2015 SP [facility] [address] [id number] [address] [place] [phone] SP 13 Jan, 2015 SP [facility] [address] [facility] [id number] [address] [place] [phone] SP Sep, SP [facility] [address] [facility] [id number] [address] [place] [phone] SP Sep, SP [facility] [address] [facility] [id number] [address] [place] [phone] SP Sep, SP [facility] [address] [id number] [address] [place] [phone] SP Sep, SP [facility] [address] [facility] [id number] [address] [place] [phone] SP May, SP [facility] [address] [facility] [id number] [address] [place] [phone] SP May, SP [facility] [address] [id number] [address] [place] [phone] SP Mar, SP [facility] [address] [id number] [address] [place] [phone] SP Mar, SP [facility] [address] [facility] [id number] [address] [place] [phone] SP Mar, SP [facility] [address] [facility] [id number] [address] [place] [phone] SP February, SP [facility] [address] [id number] [address] [place] [address], [place] [address] SP February, SP [facility] [address] [id number] [address] [place] [address], [place] [address] SP February, SP [facility] [address] [id number] [address] [place] [address], [place] [address] SP February, SP [facility] [address] [id number] [address] [place] [address], [place] [address] SP Oct, SP [facility] [address] [id number] [address] [place] [address], [place] [address] SP Oct, SP [facility] [address] [id number] [address] [place] [address], [place] [address] SP Sep, SP [facility] [address] [id number] [address] [place] [address], [place] [address] SP Sep, SP [facility] [address] [id number] [address] [place] [address], [place] [address] SP Jul, SP [facility] [address] [id number] [address] [place] [address], [place] [address] SP Jul, SP [facility] [address] [id number] [address] [place] [address], [place] [address] SP Jul, SP [facility] [address] [id number] [address] [place] [address], [place] [address] SP Jul, SP [facility] [address] [id number] [address] [place] [address], [place] [address] SP May, SP [facility] [address] [id number] [address] [place] [address], [place] [address] SP May, SP [facility] [address] [id number] [address] [place] [address], [place] [address] SP May, SP [facility] [address] [id number] [address] [place] [address], [place] [address] SP May, SP [facility] [address] [id number] [address] [place] [address], [place] [address] SP May, SP [facility] [address] [id number] [address] [place] [address], [place] [address] SP Mar, SP [facility] [address] [id number] [address] [place] [address], [place] [address] SP Mar, SP [facility] [address] [id number] [address] [place] [address], [place] [address] SP Dec, SP [facility] [address] [id number] [address] [place] [address], [place] [address] SP Dec, SP [facility] [address] [id number] [address] [place] [address], [place] [address] SP Dec, SP [facility] [address] [id number] [address] [place] [address], [place] [address] SP Dec, SP [facility] [address] [id number] [address] [place] [address], [place] [address] SP Nov, SP [facility] [address] [id number] [address] [place] [address], [place] [address] SP Nov, SP [facility] [address] [id number] [address] [place] [address], [place] [address] SP Nov, SP [facility] [address] [id number] [address] [place] [address], [place] [address] SP Nov, SP [facility] [address] [id number] [address] [place] [address], [place] [address] SP Oct, SP [facility] [address] [id number] [address] [place] [address], [place] [address] SP Oct, SP [facility] [address] [id number] [address] [place] [address], [place] [address] SP Sep, SP [facility] [address] [id number] [address] [place] [address] SP 18 Sep, 2012 SP [facility] [address] [id number] [address] [place] [address], [place] [address] SP 17 Sep, 2012 SP [facility] [address] [id number] [address] [place] [address], [place] [address] SP 15 Sep, 2012 SP [facility] [address] [id number] [address] [place] [address], [place] [address] SP 14 Sep, 2012 SP [facility] [address] [id number] [address] [place] [address], [place] [address] SP 14 Sep, 2012 SP [facility] [address] [id number] [address] [place] [address], [place] [address] SP Sep, SP [facility] [address] [id number] [address] [place] [address], [place] [address] SP Sep, SP [facility] [address] [id number] [address] [place] [address], [place] [address] SP Sep, SP [facility] [address] [id number] [address] [place] [address], [place] [address] SP Sep, SP [facility] [address] [id number] [address] [place] [address], [place] [address] SP Sep, SP [facility] [address] [id number] [address] [place] [address], [place] [address] SP Sep, SP [facility] [address] [id number] [address] [place] [address], [place] [address] SP Aug, SP [facility] [address] [id number] [address] [place] [address], [place] [address] SP Aug, SP [facility] [address] [id number] [address] [place] [address], [place] [address] SP Aug, SP [facility] [address] [id number] [address] [place] [address], [place] [address] SP Aug, SP [facility] [address] [id number] [address] [place] [address], [place] [address] SP Aug, SP [facility] [address] [id number] [address] [place] [address], [place] [address] SP Jul, SP [facility] [address] [id number] [address] [place] [address], [place] [address] SP Jul, SP [facility] [address] [id number] [address] [place] [address], [place] [address] SP Jul, SP [facility] [address] [id number] [address] [place] [address], [place] [address] SP Jul, SP [facility] [address] [id number] [address] [place] [address], [place] [address] SP Jul, SP [facility] [address] [id number] [address] [place] [address], [place] [address] SP Jul, SP [facility] [address] [id number] [address] [place] [address], [place] [address] SP Jun, SP [facility] [address] [id number] [address] [place] [address], [place] [address] SP May, SP [facility] [address] [id number] [address] [place] [address], [place] [address] SP May, SP [facility] [address] [id number] [address] [place] [address], [place] [address] SP Apr, SP [facility] [address] [id number] [address] [place] [address], [place] [address] SP Apr, SP [facility] [address] [id number] [address] [place] [address], [place] [address] SP Apr, SP [facility] [address] [id number] [address] [place] [address], [place] [address] SP Apr, SP [facility] [address] [id number] [address] [place] [address], [place] [address] SP Mar, SP [facility] [address] [id number] [address] [place] [address], [place] [address] SP Mar, SP [facility] [address] [id number] [address] [place] [address], [place] [address] SP February, SP [facility] [address] [id number] [address] [place] [address], [place] [address] SP February, SP [facility] [address] [id number] [address] [place] [address], [place] [address] SP February, SP [facility] [address] [id number] [address] [place] [address], [place] [address] SP Jan, SP [facility] [address] [id number] [address] [place] [address], [place] [address] SP Jan, SP [facility] [address] [id number] [address] [place] [address], [place] [address] SP Dec, SP [facility] [address] [id number] [address] [place] [address], [place] [address] SP Dec, SP [facility] [address] [id number] [address] [place] [address], [place] [address] SP Dec, SP [facility] [address] [id number] [address] [place] [address], [place] [address] SP Dec, SP [facility] [address] [id number] [address] [place] [address], [place] [address] SP Nov, SP [facility] [address] [id number] [address] [place] [address], [place] [address] SP Nov, SP [facility] [address] [id number] [address] [place] [address], [place] [address] SP Oct, SP [facility] [address] [id number] [address] [place] [address], [place] [address] SP Oct, SP [facility] [address] [id number] [address] [place] [phone] SP Oct, SP [facility] [address] [id number] [address] [place] [address] SP Oct, SP [facility] [address] [id number] [address] [place] [address] SP Oct, SP [facility] [address] [id number] [address] [place] [address] SP Oct, SP [facility] [address] [id number] [address] [place] [address] SP Oct, SP [facility] [address] [id number] [address] [place] [address] SP Oct, SP [facility] [address] [id number] [address] [place] [address] SP Oct, SP [facility] [address] [id number] [address] [place] [address] SP Sep, SP [facility] [address] [id number] [address] [place] [address] SP Sep, SP [facility] [address] [id number] [address] [place] [address] SP Sep, SP [facility] [address] [id number] [address] [place] [address] SP Apr, SP [facility] [address] [id number] [address] [place] [address] SP February, SP [facility] [address] [id number] [address] [place] [phone] SP February, SP IMMUNIZATIONS No Known Immunizations SOCIAL HISTORY Never Assessed REASON FOR VISIT Arthritis-JOSHUA steele, want back on meds for arthritis PLAN OF CARE Activity Details POS SP Follow Up 2 Months Reason: SP VITAL SIGNS Height 73 in 2018-04-15 POS Weight 205.9 lbs 2018-04-15 POS Temperature 97.8 degrees Fahrenheit 2018-04-15 POS Heart Rate 72 bpm 2018-04-15 POS Respiratory Rate 18 2018-04-15 POS BMI 27.16 kg/m2 2018-04-15 POS Blood pressure systolic 146 mmHg 2018-04-15 POS Blood pressure diastolic 94 mmHg 2018-04-15 POS MEDICATIONS Medication Instructions Dosage Frequency Start Date End Date Duration S tatus POS Naprosyn 500 MG 1 tablet by Oral route 2 times per day 12h 0 4 May, 2014 SP Lipitor 40 mg Orally Once a day 1 tablet 24h 25 May, 2017 30 day(s) Active SP Aspir-81 81 MG Orally Once a day 1 tablet 24h Active SP Oxycodone-Acetaminophen 5-325 MG Orally 3 times a day 1 tablet 8h Apr, SP Active SP Methotrexate 2.5 MG Orally once weekly 4 tabs Apr, Active SP RESULTS No Results PROCEDURES Procedure Date Ordered Result Body Site POS LAB NOT BILLED BY [facility] April 15, 2018 SP INSTRUCTIONS MEDICATIONS ADMINISTERED No Known Medications MEDICAL (GENERAL) HISTORY Type Description Date POS Medical History chronic pain SP Medical History Arthritis SP Hospitalization History liver abscess SP
--- OUTSIDE RECORDS SUMMARY | 2019-08-21 18:41 | XMS REPORT ---
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 M05.79 Active [id number] SP ALLERGIES No Information ENCOUNTERS Encounter Location Date Diagnosis POS [place] [address] [id number] [address] [place] [address] SP May, Mixed hyperlipidemia E78.2 SP [place] [address] [id number] [address] [place] [address] SP May, Mixed hyperlipidemia E78.2 ; Rheumatoid arthritis involving SP sites with positive rheumatoid factor M05.79 ; Erectile dysfunction due to diseases classified elsewhere N52.1 ; Routine adult health maintenance Z00.00 and Cigarette nicotine dependence without complication F17.210 [place] [address] [id number] [address] [place] [address] SP Aug, SP [facility] [address] [id number] [address] [place] [address] SP Aug, Chest wall pain R07.89 and R heumatoid arthritis involving SP sites with positive rheumatoid factor M05.79 [place] [address] [id number] [address] [place] [address] SP Jun, Rheumatoid arthritis 714.0 a nd Chronic hepatitis C with hepatic SP 070.44 [facility] [address] [id number] [address] [place] [address], [place] [address] SP 08 Jun, 2015 SP [facility] [address] [id number] [address] [place] [address], [place] [address] SP Jan, SP [facility] [address] [id number] [address] [place] [address], [place] [address] SP Jan, SP [facility] [address] [id number] [address] [place] [address], [place] [address] SP Sep, SP [facility] [address] [id number] [address] [place] [address], [place] [address] SP Sep, SP [facility] [address] [id number] [address] [place] [address], [place] [address] SP Sep, SP [facility] [address] [id number] [address] [place] [address], [place] [address] SP Sep, SP [facility] [address] [id number] [address] [place] [address], [place] [address] SP May, SP [facility] [address] [id number] [address] [place] [address], [place] [address] SP May, SP [facility] [address] [id number] [address] [place] [address], [place] [address] SP Mar, SP [facility] [address] [id number] [address] [place] [address], [place] [address] SP Mar, SP [facility] [address] [id number] [address] [place] [address], [place] [address] SP Mar, SP [facility] [address] [id number] [address] [place] [address], [place] [address] SP February, SP [facility] [address] [id number] [address] [place] [address], [place] [address] SP February, SP [facility] [address] [id number] [address] [place] [address], [place] [address] SP February, SP [facility] [address] [id number] [address] [place] [address], [place] [address] SP February, SP [facility] [address] [id number] [address] [place] [address], [place] [address] SP Oct, SP [facility] [address] [id number] [address] [place] [address], [place] [address] SP Oct, SP [facility] [address] [id number] [address] [place] [address], [place] [address] SP Sep, SP [facility] [address] [id number] [address] [place] [address], [place] [address] SP Sep, SP [facility] [address] [id number] [address] [place] [address], [place] [address] SP Jul, SP [facility] [address] [id number] [address] [place] [address], [place] [address] SP Jul, SP [facility] [address] [id number] [address] [place] [address], [place] [address] SP Jul, SP [facility] [address] [id number] [address] [place] [address], [place] [address] SP Jul, SP [facility] [address] [id number] [address] [place] [address], [place] [address] SP May, SP [facility] [address] [id number] [address] [place] [address], [place] [address] SP May, SP [facility] [address] [id number] [address] [place] [address], [place] [address] SP May, SP [facility] [address] [id number] [address] [place] [address], [place] [address] SP May, SP [facility] [address] [id number] [address] [place] [address], [place] [address] SP May, SP [facility] [address] [id number] [address] [place] [address], [place] [address] SP Mar, SP [facility] [address] [id number] [address] [place] [address], [place] [address] SP Mar, SP [facility] [address] [id number] [address] [place] [address], [place] [address] SP Dec, SP [facility] [address] [id number] [address] [place] [address], [place] [address] SP Dec, SP [facility] [address] [id number] [address] [place] [address], [place] [address] SP Dec, SP [facility] [address] [id number] [address] [place] [address], [place] [address] SP Dec, SP [facility] [address] [id number] [address] [place] [address], [place] [address] SP Nov, SP [facility] [address] [id number] [address] [place] [address], [place] [address] SP Nov, SP [facility] [address] [id number] [address] [place] [address], [place] [address] SP Nov, SP [facility] [address] [id number] [address] [place] [address], [place] [address] SP Nov, SP [facility] [address] [id number] [address] [place] [address], [place] [address] SP Oct, SP [facility] [address] [id number] [address] [place] [address] SP Oct, SP [facility] [address] [id number] [address] [place] [address], [place] [address] SP Sep, SP [facility] [address] [id number] [address] [place] [address], [place] [address] SP Sep, SP [facility] [address] [id number] [address] [place] [address], [place] [address] SP Sep, SP [facility] [address] [id number] [address] [place] [address], [place] [address] SP 15 Sep, 2012 SP [facility] [address] [id number] [address] [place] [address], [place] [address] SP 14 Sep, 2012 SP [facility] [address] [id number] [address] [place] [address], [place] [address] SP 14 Sep, 2012 SP [facility] [address] [id number] [address] [place] [address], [place] [address] SP Sep, SP [facility] [address] [id number] [address] [place] [address], [place] [address] SP Sep, SP [facility] [address] [id number] [address] [place] [address], [place] [address] SP Sep, SP [facility] [address] [id number] [address] [place] [address], [place] [address] SP Sep, SP [facility] [address] [id number] [address] [place] [address], [place] [address] SP Sep, SP [facility] [address] [id number] [address] [place] [address], [place] [address] SP Sep, SP [facility] [address] [id number] [address] [place] [address], [place] [address] SP Aug, SP [facility] [address] [id number] [address] [place] [address], [place] [address] SP Aug, SP [facility] [address] [id number] [address] [place] [address], [place] [address] SP Aug, SP [facility] [address] [id number] [address] [place] [address], [place] [address] SP Aug, SP [facility] [address] [id number] [address] [place] [address], [place] [address] SP Aug, SP [facility] [address] [id number] [address] [place] [address], [place] [address] SP Jul, SP [facility] [address] [id number] [address] [place] [address], [place] [address] SP Jul, SP [facility] [address] [id number] [address] [place] [address], [place] [address] SP Jul, SP [facility] [address] [id number] [address] [place] [address], [place] [address] SP Jul, SP [facility] [address] [id number] [address] [place] [address], [place] [address] SP Jul, SP [facility] [address] [id number] [address] [place] [address], [place] [address] SP Jul, SP [facility] [address] [id number] [address] [place] [address], [place] [address] SP Jun, SP [facility] [address] [id number] [address] [place] [address], [place] [address] SP May, SP [facility] [address] [id number] [address] [place] [address], [place] [address] SP May, SP [facility] [address] [id number] [address] [place] [address], [place] [address] SP Apr, SP [facility] [address] [id number] [address] [place] [address], [place] [address] SP Apr, SP [facility] [address] [id number] [address] [place] [address], [place] [address] SP Apr, SP [facility] [address] [id number] [address] [place] [address], [place] [address] SP Apr, SP [facility] [address] [id number] [address] [place] [address], [place] [address] SP Mar, SP [facility] [address] [id number] [address] [place] [address], [place] [address] SP Mar, SP [facility] [address] [id number] [address] [place] [address] SP February, SP [facility] [address] [id number] [address] [place] [address], [place] [address] SP February, SP [facility] [address] [id number] [address] [place] [address], [place] [address] SP February, SP [facility] [address] [id number] [address] [place] [address], [place] [address] SP Jan, SP [facility] [address] [id number] [address] [place] [address], [place] [address] SP Jan, SP [facility] [address] [id number] [address] [place] [address], [place] [address] SP Dec, SP [facility] [address] [id number] [address] [place] [address], [place] [address] SP Dec, SP [facility] [address] [id number] [address] [place] [address], [place] [address] SP Dec, SP [facility] [address] [id number] [address] [place] [address], [place] [address] SP Dec, SP [facility] [address] [id number] [address] [place] [address], [place] [address] SP Nov, SP [facility] [address] [id number] [address] [place] [address], [place] [address] SP Nov, SP [facility] [address] [id number] [address] [place] [address], [place] [address] SP Oct, SP [facility] [address] [id number] [address] [place] [address], [place] [address] SP Oct, SP [facility] [address] [id number] [address] [place] [address], [place] [address] SP Oct, SP [facility] [address] [id number] [address] [place] [address], [place] [address] SP Oct, SP [facility] [address] [id number] [address] [place] [address] SP Oct, SP [facility] [address] [id number] [address] [place] [address] SP Oct, SP [facility] [address] [id number] [address] [place] [address] SP Oct, SP [facility] [address] [id number] [address] [place] [address] SP Oct, SP [facility] [address] [id number] [address] [place] [address] SP Oct, SP [facility] [address] [id number] [address] [place] [address] SP Sep, SP [facility] [address] [id number] [address] [place] [address] SP Sep, SP [facility] [address] [id number] [address] [place] [address] SP Sep, SP [facility] [address] [id number] [address] [place] [address] SP Apr, SP [facility] [address] [id number] [address] [place] [address] SP February, SP [facility] [address] [id number] [address] [place] [address] SP February, SP IMMUNIZATIONS No Known Immunizations SOCIAL HISTORY Never Assessed REASON FOR VISIT hyperlipidemia PLAN OF CARE VITAL SIGNS MEDICATIONS Medication Instructions Dosage Frequency Start Date End Date Duration S tatus POS Lipitor 40 mg Orally Once a day 1 tablet 24h May, 30 day(s) Active SP RESULTS No Results PROCEDURES No Known procedures INSTRUCTIONS MEDICATIONS ADMINISTERED No Known Medications MEDICAL (GENERAL) HISTORY Type Description Date POS Medical History chronic pain SP Medical History Arthritis SP Hospitalization History liver abscess SP
== END 2019-07-29 21:25 | disposition short-term general hospital (02) ==
LOC: EDUNIT# 19:41 → ER 19:43
DX: S06.2X1A Diffuse traumatic brain injury with loss of consciousness of 30 minutes or less, initial encounter (principal); S02.40FA Zygomatic fracture, left side, initial encounter for closed fracture; S02.40CA Maxillary fracture, right side, initial encounter for closed fracture; S02.2XXA Fracture of nasal bones, initial encounter for closed fracture; S22.019A Unspecified fracture of first thoracic vertebra, initial encounter for closed fracture; S22.42XA Multiple fractures of ribs, left side, initial encounter for closed fracture; S27.0XXA Traumatic pneumothorax, initial encounter; Z79.899 Other long term (current) drug therapy; Z79.82 Long term (current) use of aspirin; F17.210 Nicotine dependence, cigarettes, uncomplicated; Z23 Encounter for immunization; S27.322A Contusion of lung, bilateral, initial encounter; S05.92XA Unspecified injury of left eye and orbit, initial encounter; S80.211A Abrasion, right knee, initial encounter; S80.212A Abrasion, left knee, initial encounter; S70.212A Abrasion, left hip, initial encounter; S30.811A Abrasion of abdominal wall, initial encounter; S22.029A Unspecified fracture of second thoracic vertebra, initial encounter for closed fracture; S32.019A Unspecified fracture of first lumbar vertebra, initial encounter for closed fracture; S32.049A Unspecified fracture of fourth lumbar vertebra, initial encounter for closed fracture; S12.600A Unspecified displaced fracture of seventh cervical vertebra, initial encounter for closed fracture; H05.20 Unspecified exophthalmos; F10.129 Alcohol abuse with intoxication, unspecified; V23.4XXA Motorcycle driver injured in collision with car, pick-up truck or van in traffic accident, initial encounter; B19.20 Unspecified viral hepatitis C without hepatic coma; G43.909 Migraine, unspecified, not intractable, without status migrainosus; M06.9 Rheumatoid arthritis, unspecified; E78.00 Pure hypercholesterolemia, unspecified; I10 Essential (primary) hypertension
CPT/HCPCS: 36415; 51702; 70450; 70486; 71250; 72125; 72128; 72131; 74176; 80048; 80076; 80306; 80320; 81000; 82550; 83605; 83735; 84100; 84484; 85027; 85379; 85384; 85610; 85730; 86850; 86900; 86901; 86920; 90471; 90715; 93005; 93041; 96374; 96375; 99291; 99292

== ENCOUNTER 2019-08-04 14:42 | Inpatient (IN) | payer OTHER, BC ==
[~2019-08-04] VITALS: Ht 185 cm; Wt 87.3 kg
[2019-08-04] MEDS ORDERED: NS IV 1000 ML 1,000 ML IV ONE (15:31)
[2019-08-04] MEDS ORDERED: fentaNYL INJECTION 100 MCG/2 ML AMP IVP STA (15:31)
[2019-08-04 15:49] LABS: BASOPHILS % (AUTO) 0 % (0-10); EOSINOPHILS % (AUTO) 0 % (0-10); HEMATOCRIT 35 % (40-54); HEMOGLOBIN 12.2 G/DL (13.3-17.7); LYMPHOCYTES # (AUTO) 1.3 X 10^3 (1.0-4.0); LYMPHOCYTES % (AUTO) 12 % (12-44); MEAN CORPUSCULAR HEMOGLOBIN 33 PG (25-34); MEAN CORPUSCULAR HGB CONC 35 G/DL (32-36); MEAN CORPUSCULAR VOLUME 94 FL (80-99); MEAN PLATELET VOLUME 8.7 FL (7.4-10.4); MONOCYTES # (AUTO) 1.4 X 10^3 (0.0-1.0); MONOCYTES % (AUTO) 13 % (0-12); NEUTROPHILS # (AUTO) 8.1 X 10^3 (1.8-7.8); NEUTROPHILS % (AUTO) 75 % (42-75); PLATELET COUNT 330 10^3/uL (130-400); RED CELL DISTRIBUTION WIDTH 14.5 % (10.0-14.5); WHITE BLOOD COUNT 10.9 10^3/uL (4.3-11.0)
[2019-08-04 16:13] LABS: ALANINE AMINOTRANSFERASE 241 U/L (0-55); ALBUMIN 4.5 GM/DL (3.2-4.5); ALKALINE PHOSPHATASE 83 U/L (40-136); BILIRUBIN,TOTAL 2.2 MG/DL (0.1-1.0); BUN/CREATININE RATIO 22; CALCIUM 10.4 MG/DL (8.5-10.1); CARBON DIOXIDE 27 MMOL/L (21-32); CHLORIDE 96 MMOL/L (98-107); CREATININE SERUM 0.98 MG/DL (0.60-1.30); GFR ESTIMATED > 60; GLUCOSE 111 MG/DL (70-105); POTASSIUM 4.3 MMOL/L (3.6-5.0); SODIUM 133 MMOL/L (135-145); TOTAL PROTEIN 8.1 GM/DL (6.4-8.2)
[2019-08-04 16:55] LABS: INR 1.1 (0.8-1.4)
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
[2019-08-04 17:25] LABS: BILIRUBIN,URINE NEGATIVE (NEGATIVE); CLARITY,URINE CLEAR; COLOR,URINE YELLOW; GLUCOSE, URINE (UA) NEGATIVE (NEGATIVE); KETONES,URINE NEGATIVE (NEGATIVE); LEUKOCYTE ESTERASE ,URINE 1+ (NEGATIVE); NITRITE,URINE NEGATIVE (NEGATIVE); PH,URINE 5 (5-9); PROTEIN,URINE 2+ (NEGATIVE)
[2019-08-04] MEDS ORDERED: HYDROmorphone 2 MG/ML VIAL (DILAUDID) IV ONE (17:30)
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
[2019-08-04 18:18] LABS: RBC,URINE 0-2 /HPF
[2019-08-04 18:19] LABS: HYALINE CASTS, URINE 0-2 /LPF
[2019-08-04] MEDS ORDERED: CEFEPIME INJECTION 1,000 MG in WATER (STERILE) FOR INJECTION 10 ML IV ONE (18:30)
[2019-08-04 20:00] VITALS: BP 161/92
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
[2019-08-04] MEDS: NS IV 1000 ML 1,000 ML IV SCH (21:55)
[2019-08-04] MEDS: fentaNYL INJECTION 100 MCG/2 ML AMP IV PRN ×2 (21:56→23:24)
[2019-08-04] MEDS ORDERED: ALPRAZolam 0.5 MG (XANAX) TAB ONE (22:15)
[2019-08-04 22:30] VITALS: BP 107/77
--- NOTE | 2019-08-05 02:03 | NUR ---
pt admitted from er. at bedside iv patent pt is restless meds have been given as ordered. dr chu notified xanax order was given bipap placed on pt.. pt cont to be restless pulling bipap off trying to get out of bed.... dr chu notified vo given to take bipap off.. bipap removed and rt made aware..
--- NOTE | 2019-08-05 02:12 | NUR ---
rn reports pt off bipap per dr austin, family in room, rn doesn't want patient awakened for IS . left in room. Addendum: 08/05/19 at 0213 by MADAI PEDRO RT Amended: Links added.
[2019-08-05] MEDS: fentaNYL INJECTION 100 MCG/2 ML AMP IV PRN ×4 (02:30→22:01)
[2019-08-05 04:50] LABS: BASOPHILS % (AUTO) 0 % (0-10); EOSINOPHILS % (AUTO) 0 % (0-10); HEMATOCRIT 32 % (40-54); LYMPHOCYTES # (AUTO) 0.9 X 10^3 (1.0-4.0); LYMPHOCYTES % (AUTO) 10 % (12-44); MEAN CORPUSCULAR HEMOGLOBIN 33 PG (25-34); MEAN CORPUSCULAR HGB CONC 34 G/DL (32-36); MEAN CORPUSCULAR VOLUME 96 FL (80-99); MEAN PLATELET VOLUME 8.7 FL (7.4-10.4); MONOCYTES # (AUTO) 1.6 X 10^3 (0.0-1.0); MONOCYTES % (AUTO) 17 % (0-12); NEUTROPHILS # (AUTO) 6.8 X 10^3 (1.8-7.8); NEUTROPHILS % (AUTO) 73 % (42-75); PLATELET COUNT 305 10^3/uL (130-400); RED CELL DISTRIBUTION WIDTH 14.2 % (10.0-14.5); WHITE BLOOD COUNT 9.3 10^3/uL (4.3-11.0)
[2019-08-05 05:18] LABS: ALANINE AMINOTRANSFERASE 193 U/L (0-55); ALBUMIN 4.1 GM/DL (3.2-4.5); ALKALINE PHOSPHATASE 75 U/L (40-136); BUN/CREATININE RATIO 26; CALCIUM 9.8 MG/DL (8.5-10.1); CARBON DIOXIDE 22 MMOL/L (21-32); CHLORIDE 100 MMOL/L (98-107); CREATININE SERUM 0.82 MG/DL (0.60-1.30); GFR ESTIMATED > 60; GLUCOSE 104 MG/DL (70-105); POTASSIUM 4.2 MMOL/L (3.6-5.0); SODIUM 135 MMOL/L (135-145); TOTAL PROTEIN 7.5 GM/DL (6.4-8.2)
[2019-08-05] MEDS: CEFEPIME 2,000 MG/SWFI 20 ML IV PUSH IV SCH ×4 (06:24→18:21)
[2019-08-05] MEDS: POLYETHYLENE GLYCOL 17 GM (MIRALAX) PACK PO SCH (07:48)
[2019-08-05] MEDS: DOCUSATE SODIUM 100 MG (COLACE) CAP PO SCH ×2 (07:48→22:26)
[2019-08-05 08:00] VITALS: BP 176/76
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
[2019-08-05] MEDS ORDERED: HALOPERIDOL 0.5 MG (HALDOL) TAB PO PRN (09:30)
[2019-08-05] MEDS: ACETAMINOPHEN 500 MG TAB (TYLENOL) PO PRN (10:14)
[2019-08-05 12:00] VITALS: BP 176/76
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
[2019-08-05] MEDS: NS IV 1000 ML 1,000 ML IV SCH (13:35)
[2019-08-05] MEDS: RT-ALBUTEROL SULF 2.5 MG/3 ML PRE-MIX VIAL INH PRN (14:38)
[2019-08-05 15:09] VITALS: BP 128/78
[2019-08-05 19:51] VITALS: BP 169/85
[2019-08-05] MEDS: ALPRAZolam 0.5 MG (XANAX) TAB PO PRN (21:57)
[2019-08-05 23:45] VITALS: BP 128/82
[2019-08-06] MEDS: fentaNYL INJECTION 100 MCG/2 ML AMP IV PRN ×5 (03:59→23:39)
[2019-08-06 04:00] VITALS: BP 146/83
[2019-08-06 05:23] LABS: BASOPHILS % (AUTO) 0 % (0-10); EOSINOPHILS % (AUTO) 0 % (0-10); HEMATOCRIT 32 % (40-54); HEMOGLOBIN 11.1 G/DL (13.3-17.7); LYMPHOCYTES # (AUTO) 1.5 X 10^3 (1.0-4.0); LYMPHOCYTES % (AUTO) 15 % (12-44); MEAN CORPUSCULAR HEMOGLOBIN 33 PG (25-34); MEAN CORPUSCULAR HGB CONC 35 G/DL (32-36); MEAN CORPUSCULAR VOLUME 94 FL (80-99); MEAN PLATELET VOLUME 8.8 FL (7.4-10.4); MONOCYTES # (AUTO) 1.7 X 10^3 (0.0-1.0); MONOCYTES % (AUTO) 17 % (0-12); NEUTROPHILS # (AUTO) 6.5 X 10^3 (1.8-7.8); NEUTROPHILS % (AUTO) 67 % (42-75); PLATELET COUNT 352 10^3/uL (130-400); RED CELL DISTRIBUTION WIDTH 13.6 % (10.0-14.5); WHITE BLOOD COUNT 9.7 10^3/uL (4.3-11.0)
[2019-08-06] MEDS: CEFEPIME 2,000 MG/SWFI 20 ML IV PUSH IV SCH ×4 (06:14→18:08)
[2019-08-06] MEDS: NS IV 1000 ML 1,000 ML IV SCH (06:21)
[2019-08-06 08:00] VITALS: BP 133/82
[2019-08-06] MEDS: DOCUSATE SODIUM 100 MG (COLACE) CAP PO SCH ×2 (08:45→20:13)
[2019-08-06] MEDS: RT-ALBUTEROL SULF 2.5 MG/3 ML PRE-MIX VIAL INH PRN (08:45)
[2019-08-06] MEDS: POLYETHYLENE GLYCOL 17 GM (MIRALAX) PACK PO SCH (08:48)
[2019-08-06] MEDS: ALPRAZolam 0.5 MG (XANAX) TAB PO PRN (09:57)
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
[2019-08-06 12:00] VITALS: BP 144/76
[2019-08-06] MEDS: ACETAMINOPHEN 500 MG TAB (TYLENOL) PO PRN ×2 (13:59→23:38)
[2019-08-06 15:19] VITALS: BP 152/78
[2019-08-06 19:13] VITALS: BP 123/76
[2019-08-06 23:16] VITALS: BP 124/78
[2019-08-07] VITALS (7 sets, daily range): BP systolic 110–152; BP diastolic 69–96
[2019-08-07] MEDS: fentaNYL INJECTION 100 MCG/2 ML AMP IV PRN ×4 (04:06→18:07)
[2019-08-07] MEDS: NS IV 1000 ML 1,000 ML IV SCH (04:07)
[2019-08-07] MEDS: CEFEPIME 2,000 MG/SWFI 20 ML IV PUSH IV SCH ×4 (05:54→18:07)
[2019-08-07 06:58] LABS: BASOPHILS % (AUTO) 0 % (0-10); EOSINOPHILS # (AUTO) 0.1 10^3/uL (0.0-0.3); EOSINOPHILS % (AUTO) 1 % (0-10); HEMATOCRIT 32 % (40-54); HEMOGLOBIN 11.1 G/DL (13.3-17.7); LYMPHOCYTES # (AUTO) 1.5 X 10^3 (1.0-4.0); LYMPHOCYTES % (AUTO) 19 % (12-44); MEAN CORPUSCULAR HEMOGLOBIN 32 PG (25-34); MEAN CORPUSCULAR HGB CONC 34 G/DL (32-36); MEAN CORPUSCULAR VOLUME 94 FL (80-99); MEAN PLATELET VOLUME 8.5 FL (7.4-10.4); MONOCYTES # (AUTO) 1.3 X 10^3 (0.0-1.0); MONOCYTES % (AUTO) 17 % (0-12); NEUTROPHILS # (AUTO) 4.7 X 10^3 (1.8-7.8); NEUTROPHILS % (AUTO) 63 % (42-75); PLATELET COUNT 330 10^3/uL (130-400); WHITE BLOOD COUNT 7.5 10^3/uL (4.3-11.0)
[2019-08-07 07:21] LABS: ALANINE AMINOTRANSFERASE 184 U/L (0-55); ALBUMIN 3.9 GM/DL (3.2-4.5); ALKALINE PHOSPHATASE 81 U/L (40-136); BILIRUBIN,TOTAL 1.7 MG/DL (0.1-1.0); BUN/CREATININE RATIO 20; CALCIUM 9.6 MG/DL (8.5-10.1); CARBON DIOXIDE 24 MMOL/L (21-32); CHLORIDE 94 MMOL/L (98-107); CREATININE SERUM 0.74 MG/DL (0.60-1.30); GFR ESTIMATED > 60; GLUCOSE 94 MG/DL (70-105); POTASSIUM 4.1 MMOL/L (3.6-5.0); SODIUM 128 MMOL/L (135-145); TOTAL PROTEIN 7.2 GM/DL (6.4-8.2)
[2019-08-07] MEDS: ACETAMINOPHEN 500 MG TAB (TYLENOL) PO PRN ×2 (08:08→20:19)
[2019-08-07] MEDS ORDERED: LEVE500T6 PO (09:17)
[2019-08-07] MEDS ORDERED: ESOM20CA58 PO (09:17)
[2019-08-07] MEDS ORDERED: FOLI1TAB24 PO (09:17)
[2019-08-07] MEDS ORDERED: MELA5TAB14 PO (09:17)
[2019-08-07] MEDS ORDERED: METH2.5T PO (09:17)
[2019-08-07] MEDS ORDERED: ACET-77 PO (09:17)
[2019-08-07] MEDS ORDERED: METH750T3 PO (09:17)
[2019-08-07] MEDS ORDERED: NAPR-1033 PO (09:17)
[2019-08-07] MEDS ORDERED: OXYC-529 PO (09:17)
[2019-08-07] MEDS ORDERED: ASPI-983 PO (09:17)
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
[2019-08-07] MEDS: DOCUSATE SODIUM 100 MG (COLACE) CAP PO SCH ×2 (10:37→20:19)
[2019-08-07] MEDS: POLYETHYLENE GLYCOL 17 GM (MIRALAX) PACK PO SCH (10:37)
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
[2019-08-08] MEDS: NS IV 1000 ML 1,000 ML IV SCH ×2 (01:15→23:05)
[2019-08-08 04:00] VITALS: BP 129/73
[2019-08-08 05:46] LABS: BASOPHILS % (AUTO) 1 % (0-10); EOSINOPHILS # (AUTO) 0.1 10^3/uL (0.0-0.3); EOSINOPHILS % (AUTO) 3 % (0-10); HEMATOCRIT 31 % (40-54); HEMOGLOBIN 10.6 G/DL (13.3-17.7); LYMPHOCYTES # (AUTO) 1.2 X 10^3 (1.0-4.0); LYMPHOCYTES % (AUTO) 27 % (12-44); MEAN CORPUSCULAR HEMOGLOBIN 32 PG (25-34); MEAN CORPUSCULAR HGB CONC 34 G/DL (32-36); MEAN CORPUSCULAR VOLUME 94 FL (80-99); MEAN PLATELET VOLUME 8.6 FL (7.4-10.4); MONOCYTES % (AUTO) 22 % (0-12); NEUTROPHILS # (AUTO) 2.1 X 10^3 (1.8-7.8); NEUTROPHILS % (AUTO) 47 % (42-75); PLATELET COUNT 314 10^3/uL (130-400); RED CELL DISTRIBUTION WIDTH 13.8 % (10.0-14.5); WHITE BLOOD COUNT 4.4 10^3/uL (4.3-11.0)
[2019-08-08 05:57] LABS: ALANINE AMINOTRANSFERASE 169 U/L (0-55); ALBUMIN 3.5 GM/DL (3.2-4.5); ALKALINE PHOSPHATASE 84 U/L (40-136); BILIRUBIN,TOTAL 1.3 MG/DL (0.1-1.0); BUN/CREATININE RATIO 18; CALCIUM 9.3 MG/DL (8.5-10.1); CARBON DIOXIDE 24 MMOL/L (21-32); CHLORIDE 99 MMOL/L (98-107); CREATININE SERUM 0.77 MG/DL (0.60-1.30); GFR ESTIMATED > 60; GLUCOSE 97 MG/DL (70-105); POTASSIUM 3.7 MMOL/L (3.6-5.0); SODIUM 133 MMOL/L (135-145); TOTAL PROTEIN 6.4 GM/DL (6.4-8.2)
[2019-08-08] MEDS: CEFEPIME 2,000 MG/SWFI 20 ML IV PUSH IV SCH ×4 (06:24→18:51)
[2019-08-08 07:42] VITALS: BP 103/72
[2019-08-08] MEDS: DOCUSATE SODIUM 100 MG (COLACE) CAP PO SCH ×2 (07:58→20:23)
[2019-08-08] MEDS: ACETAMINOPHEN 500 MG TAB (TYLENOL) PO PRN ×3 (07:58→20:23)
[2019-08-08] MEDS: POLYETHYLENE GLYCOL 17 GM (MIRALAX) PACK PO SCH ×3 (07:59→20:23)
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
[2019-08-08 16:14] VITALS: BP 116/79
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
[2019-08-08] MEDS: PANTOPRAZOLE 20 MG TABLET (PROTONIX) PO SCH (20:22)
[2019-08-08] MEDS: ALPRAZolam 0.5 MG (XANAX) TAB PO PRN (20:35)
[2019-08-09 00:24] VITALS: BP 116/79
[2019-08-09] MEDS: fentaNYL INJECTION 100 MCG/2 ML AMP IV PRN (01:34)
[2019-08-09] MEDS: ACETAMINOPHEN 500 MG TAB (TYLENOL) PO PRN ×2 (05:31→13:59)
[2019-08-09] MEDS: CEFEPIME 2,000 MG/SWFI 20 ML IV PUSH IV SCH ×4 (05:42→17:41)
[2019-08-09 05:50] LABS: BASOPHILS % (AUTO) 0 % (0-10); EOSINOPHILS # (AUTO) 0.2 10^3/uL (0.0-0.3); EOSINOPHILS % (AUTO) 3 % (0-10); HEMATOCRIT 31 % (40-54); HEMOGLOBIN 10.7 G/DL (13.3-17.7); LYMPHOCYTES # (AUTO) 1.6 X 10^3 (1.0-4.0); LYMPHOCYTES % (AUTO) 26 % (12-44); MEAN CORPUSCULAR HEMOGLOBIN 32 PG (25-34); MEAN CORPUSCULAR HGB CONC 34 G/DL (32-36); MEAN CORPUSCULAR VOLUME 94 FL (80-99); MEAN PLATELET VOLUME 8.9 FL (7.4-10.4); MONOCYTES # (AUTO) 0.9 X 10^3 (0.0-1.0); MONOCYTES % (AUTO) 14 % (0-12); NEUTROPHILS # (AUTO) 3.5 X 10^3 (1.8-7.8); NEUTROPHILS % (AUTO) 57 % (42-75); PLATELET COUNT 372 10^3/uL (130-400); RED CELL DISTRIBUTION WIDTH 14.2 % (10.0-14.5); WHITE BLOOD COUNT 6.1 10^3/uL (4.3-11.0)
[2019-08-09 06:06] LABS: ALANINE AMINOTRANSFERASE 137 U/L (0-55); ALBUMIN 3.7 GM/DL (3.2-4.5); ALKALINE PHOSPHATASE 123 U/L (40-136); BILIRUBIN,TOTAL 0.8 MG/DL (0.1-1.0); BUN/CREATININE RATIO 16; CALCIUM 9.3 MG/DL (8.5-10.1); CARBON DIOXIDE 20 MMOL/L (21-32); CHLORIDE 101 MMOL/L (98-107); GFR ESTIMATED > 60; GLUCOSE 144 MG/DL (70-105); POTASSIUM 3.9 MMOL/L (3.6-5.0); SODIUM 133 MMOL/L (135-145); TOTAL PROTEIN 6.9 GM/DL (6.4-8.2)
[2019-08-09] MEDS: RT-ALBUTEROL SULF 2.5 MG/3 ML PRE-MIX VIAL INH SCH ×4 (06:55→18:42)
[2019-08-09 08:00] VITALS: BP 125/61
[2019-08-09] MEDS: DOCUSATE SODIUM 100 MG (COLACE) CAP PO SCH ×2 (08:33→19:52)
[2019-08-09] MEDS: POLYETHYLENE GLYCOL 17 GM (MIRALAX) PACK PO SCH ×3 (08:34→19:57)
--- NOTE | 2019-08-09 10:58 | Occupational Ther Daily Note ---
OT Current Status-Daily Note Subjective Pt seen in recliner chair, family member present. Pt states ~3/10 pain in R side and ankle. Pt agreeable to OT tx session. Mental Status/Objective Patient Orientation: Normal For Age ADL-Treatment Therapy Code Descriptions/Definitions Functional [place] Measure: 0=Not Assessed/NA 4=Minimal Assistance 1=Total Assistance 5=Supervision or Setup 2=Maximal Assistance 6=Modified [place] 3=Moderate Assistance 7=Complete IndependenceSCALE: Activities may be completed with or without assistive devices. 5-Uiqohtjaiw-iqahxou completes the activity by him/herself with no assistance from a helper. 5-Set-up or Clean-up Assistance-helper sets up or cleans up; patient completes activity. [place] assists only prior to or following the activity. 4-Supervision or Touching Assistance-helper provides verbal cues and/or touching/steadying and/or contact guard assistance as patient completes activity. Assistance may be provided throughout the activity or intermittently. 3-Partial/Moderate Assistance-helper does LESS THAN HALF the effort. [place] l ifts, holds or supports trunk or limbs, but provides less than half the effort. 2-Substantial/Maximal Assistance-helper does MORE THAN HALF the effort. [place] lifts or holds trunk or limbs and provides more than half the effort. 8-Nhnmhaauz-savaew does ALL the effort. Patient does none of the effort to complete the activity. Or, the assistance of 2 or more helpers is required for t he patient to complete the activity. If activity was not attempted, code reason: 7-Patient Refused. 9-Not Applicable-not attempted and the patient did not perform the activity before the current illness, exacerbation or injury. 10-Not Attempted due to Environmental Limitations-(lack of equipment, weather restraints, etc.). 88-Not Attempted due to Medical Conditions or Safety Concerns. Lower Body Dressing (QC): 4 (CGA in stance) Other Treatment Family member present through session. Pt questioned about diplopia, pt states still present with/ without glasses; close items are "blurry" with and without glasses. Pt states he was able to get on/ off toilet without issue previous night for BM. Pt denies need for bathroom or shower. Pt completes LB dressing tasks edge of chair. Pt brings foot up to opposite knee and completes sock doff/ donning with increased time. Pt demonstrates ability to doff/ don CAM boot with increased time with pain managed; skilled cues for positioning and decreasing inflation of boot due to indentations on skin. Pt educated on AE and no need at this time. Pt expresses concerns on ankle management and healing rates/ ability to return to work post-surgery. Pt educated on doctor's role in orthopedics; pt left with all questions answered, call light in reach, all needs met, PT present. Education OT Patient Education: Correct positioning, Instructions don/doff splint/brace, Modified ADL techniques, Progress toward Goal/Update tx plan, Purpose of tx/functional activities, Use of adapted equipment Teaching Recipient: Patient, Family Teaching Methods: Demonstration, Discussion Response to Teaching: Verbalize Understanding, Return Demonstration OT Short Term Goals Short Term Goals Upper Body Dressing(FIM): 3 Lower Body Dressing(FIM): 3 (met) 1=Demonstrate adherence to instructed precautions during ADL tasks. 2=Patient will verbalize/demonstrate understanding of assistive devices/modifications for ADL. 3=Patient will improve strength/tolerance for activity to enable patient to perform ADL's. OT Import/Export Administrator Goals Correction Goals Time Frame: Aug 15, 2019 Eating (QC): 6 Oral Hygiene (QC): 6 Shower/Bathe Self (QC): 4 Upper Body Dressing (QC): 4 Lower Body Dressing (QC): 4 (met) On/Off Footwear (QC): 5 (met) Toileting Hygiene (QC): 6 Toilet/Commode Transfer (QC): 6 Additional Goals: 1-Demonstrate ADL Tasks, 2-Verbalize Understanding, 3- ImproveStrength/Walter 1=Demonstrate adherence to instructed precautions during ADL tasks. 2=Patient will verbalize/demonstrate understanding of assistive devices/modifications for ADL. 3=Patient will improve strength/tolerance for activity to enable patient to perform ADL's. OT Education/Plan Problem List/Assessment Assessment: Decreased Activ Tolerance, Decreased UE Strength, Impaired Coordination, Impaired I ADL's, Impaired Self-Care Skills, Restricted Funct UE ROM Discharge Recommendations Plan/Recommendations: Continue POC Therapy Discharge Recommendati: Post Acute OT Treatment Plan/Plan of Care Treatment,Training & Education: Yes Patient would benefit from OT for education, treatment and training to promote independence in ADL's, mobility, safety and/or upper extremity function for ADL's. Plan of Care: ADL Retraining, Caregiver Training, Cognitive Retraining, Functional Mobility, UE Funct Exercise/Act, UE Neuromus Re-Ed/Coord, Visual/Perceptual Retrain Treatment Duration: Aug 15, 2019 Frequency: 5 times per week Estimated Hrs Per Day: .25 hour per day Agreement: Yes Rehab Potential: Fair Time/GCodes Start Time: 10:32 Stop Time: 10:43 Total Time Billed (hr/min): 11 Billed Treatment Time 1, ADL (11) DAMASO OGLESBY OTR Aug 09, 2019 10:58 POS
--- NOTE | 2019-08-09 11:04 | Diagnostic Imaging Report ---
PROCEDURE: US Hepatic (Liver). TECHNIQUE: Multiple real-time grayscale images were obtained over the right upper quadrant in various projections. INDICATION: Elevated liver function tests. FINDINGS: The liver is normal in size at 16 cm. There is a cyst in the right lobe of the liver measuring 2.5 x 1.0 x 1.6 cm. No other liver mass is detected. The portal vein is patent and shows normal direction of flow. Gallbladder appears to be contracted. No definite stones are seen. No biliary ductal dilatation is seen. Visualized pancreas is unremarkable. Right kidney is without calculi or hydronephrosis. No ascites. IMPRESSION: 1. Hepatic cysts. 2. Contracted gallbladder. No other significant abnormality is detected. Dictated by: Dictated on workstation # [id number]
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
[2019-08-09] MEDS: ALPRAZolam 0.5 MG (XANAX) TAB PO PRN ×2 (12:23→19:52)
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
--- NOTE | 2019-08-09 14:58 | NUR ---
IRF Evaluation Chart review complete and findings discussed with Dr. Matthews - patient accepted. Dr. Melgoza and CM/SS notified. Met with patient, daughter and various family members to discuss details regarding the inpatient rehabilitation program. Patient verbalizes interest in program by stating, "I am willing to stay how ever long I need to in order to have everything taken care of." Patient complains of diplopia that began approximately 3 days, as well as dysarthria. Patient was reassured his concerns would be addressed. Patient agreeable to required therapy regimen, admission and submission to [facility] for authorization. Met with patient's daughter in [facility], at her request. Provided daughter with an overview of program as she was late to the conversation within patient's room. She states the patient needs a CPAP; however, he is not previously established with one at home. It was explained to her that it is possible a sleep study will need to be completed prior to a CPAP being issued. RN notified, and states she will reach out to Dr. Melgoza. Thank you for this referral.
[2019-08-09 16:17] VITALS: BP 130/87
[2019-08-09] MEDS: PANTOPRAZOLE 20 MG TABLET (PROTONIX) PO SCH (19:52)
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
[2019-08-09] MEDS: NS IV 1000 ML 1,000 ML IV SCH (22:24)
[2019-08-09 23:01] LABS: HEPATITIS C ANTIBODY C Reactive (Non-Reactive)
--- NOTE | 2019-08-10 00:14 | NUR ---
PT REFUSES VS AT THIS TIME. REQUESTS TO REST TONIGHT. EDUCATED ON THE IMPORTANCE OF OBTAINING VS. PT STILL REFUSES. Addendum: 08/10/19 at 0015 by DELFINO DIALLO RN Amended: Links added.
[2019-08-10 06:46] LABS: BASOPHILS % (AUTO) 0 % (0-10); EOSINOPHILS # (AUTO) 0.2 10^3/uL (0.0-0.3); EOSINOPHILS % (AUTO) 3 % (0-10); HEMATOCRIT 31 % (40-54); HEMOGLOBIN 10.4 G/DL (13.3-17.7); LYMPHOCYTES # (AUTO) 1.5 X 10^3 (1.0-4.0); LYMPHOCYTES % (AUTO) 21 % (12-44); MEAN CORPUSCULAR HEMOGLOBIN 33 PG (25-34); MEAN CORPUSCULAR HGB CONC 34 G/DL (32-36); MEAN CORPUSCULAR VOLUME 96 FL (80-99); MEAN PLATELET VOLUME 8.8 FL (7.4-10.4); MONOCYTES % (AUTO) 13 % (0-12); NEUTROPHILS # (AUTO) 4.7 X 10^3 (1.8-7.8); NEUTROPHILS % (AUTO) 63 % (42-75); PLATELET COUNT 418 10^3/uL (130-400); RED CELL DISTRIBUTION WIDTH 14.4 % (10.0-14.5); WHITE BLOOD COUNT 7.4 10^3/uL (4.3-11.0)
[2019-08-10] MEDS ORDERED: AUGMENTIN 875 MG TAB (AMOXICILLIN/CLAVULANATE) PO SCH (07:00)
[2019-08-10 07:22] LABS: ALANINE AMINOTRANSFERASE 111 U/L (0-55); ALBUMIN 3.7 GM/DL (3.2-4.5); ALKALINE PHOSPHATASE 96 U/L (40-136); BILIRUBIN,TOTAL 0.7 MG/DL (0.1-1.0); BUN/CREATININE RATIO 15; CALCIUM 9.6 MG/DL (8.5-10.1); CARBON DIOXIDE 22 MMOL/L (21-32); CHLORIDE 101 MMOL/L (98-107); CREATININE SERUM 0.79 MG/DL (0.60-1.30); GFR ESTIMATED > 60; GLUCOSE 112 MG/DL (70-105); POTASSIUM 4.4 MMOL/L (3.6-5.0); SODIUM 135 MMOL/L (135-145); TOTAL PROTEIN 6.7 GM/DL (6.4-8.2)
[2019-08-10 08:00] VITALS: BP 124/78
[2019-08-10] MEDS: DOCUSATE SODIUM 100 MG (COLACE) CAP PO SCH (09:12)
[2019-08-10] MEDS: POLYETHYLENE GLYCOL 17 GM (MIRALAX) PACK PO SCH (09:12)
[2019-08-10] MEDS: RT-ALBUTEROL SULF 2.5 MG/3 ML PRE-MIX VIAL INH SCH (09:56)
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
[2019-08-10] MEDS ORDERED: DOCU100C37 PO (10:23)
[2019-08-10] MEDS ORDERED: POLY17PO31 PO (10:23)
[2019-08-10] MEDS ORDERED: AMOX1TAB12 PO (10:23)
[2019-08-10] MEDS ORDERED: OXC5T PO ×2 (10:23→13:27)
[2019-08-10] MEDS ORDERED: ALPR0.5T7 PO (10:23)
--- NOTE | 2019-08-10 10:24 | Discharge Instructions ---
Discharge [facility] Discharge Medications New Medications: Alprazolam (Alprazolam) 0.5 Mg Tablet 0.5 MG PO BID PRN for ANXIETY for 30 Days, TAB Amoxicillin/Potassium Clav (Amox Tr-K Clv 875-125 mg Tab) 1 Each Tablet 875 MG PO BID WITH MEALS for 10 Days, #20 TAB Docusate Sodium (Docusate Sodium) 100 Mg Capsule 100 MG PO BID for 60 Days, CAP Oxycodone Hcl (Oxyir Tablet) 5 Mg Tab 5 MG PO Q6H PRN for PAIN-SEVERE for 30 Days, TAB Polyethylene Glycol 3350 (Polyethylene Glycol 3350) 17 Gm Powd.pack 17 GM PO DAILY for 30 Days, EACH Continued Medications: Acetaminophen (Acetaminophen) 500 Mg Tablet 1000 MG PO Q8H PRN for PAIN-MILD, TAB Atorvastatin Calcium (Atorvastatin Calcium) 40 Mg Tablet 40 MG PO DAILY, TAB Esomeprazole Magnesium (Nexium 24Hr) 20 Mg Capsule.dr 20 MG PO DAILY, CAP Folic Acid (Folic Acid) 1 Mg Tablet 1 MG PO DAILY, TAB Levetiracetam (Levetiracetam) 500 Mg Tablet 500 MG PO BID THIS IS A SHORT TERM MED ONLY DUE TO ACCIDENT Methotrexate Sodium (Methotrexate) 2.5 Mg Tablet 17.5 MG PO WEDNESDAY TAKES 7 TABS ONCE WEEKLY ON WEDNESDAY Discontinued Medications: Aspirin (Aspirin EC) 81 Mg Tablet.dr 81 MG PO HS, TAB Melatonin (Melatonin) 5 Mg Tablet 5 MG PO HS PRN for SLEEP, TAB Methocarbamol (Methocarbamol) 750 Mg Tablet 750 MG PO Q6-8HR PRN for BACK PAIN, TAB Naproxen Sodium (Naproxen Sodium) 220 Mg Tablet 440 MG PO Q6H PRN for PAIN-MILD, TAB Oxycodone HCl (Oxycodone HCl) 5 Mg Tablet 5-10 MG PO Q4H PRN for PAIN-SEVERE Patient Instructions Goal/Follow Up Appt: D/c to RAJEEV TATUM MD Aug 10, 2019 10:24 POS
[2019-08-10 10:50] VITALS: BP 124/78
--- NOTE | 2019-08-10 10:50 | NUR ---
VADIM MCKINNEY demonstrates understanding of discharge instructions and accurately returns instructions upon questioning. Copy of Post-Discharge Instructions given to PT. VADIM MCKINNEY is able to manage continuing needs after discharge. Patients belongings returned to PT. Patient discharged from [id number] on 08/10/19 at 1050. VADIM MCKINNEY left floor via W/C, accompanied by STAFF.
[2019-08-10] MEDS ORDERED: MELA5CAP PO (13:27)
[2019-08-10] MEDS ORDERED: NAPR220T66 PO (13:27)
[2019-08-10] MEDS ORDERED: METH750T3 PO (13:27)
[2019-08-10] MEDS ORDERED: ASPI-983 PO (13:27)
== END 2019-08-10 10:50 | DRG 194 ==
LOC: EDUNIT# 14:42 → ER 14:43 → 4TH 18:15
PROVIDERS: ADMIT Internal Medicine; ATTEND Internal Medicine
DX: J18.1 Lobar pneumonia, unspecified organism (principal); J98.11 Atelectasis; R04.2 Hemoptysis; S06.6X9D Traumatic subarachnoid hemorrhage with loss of consciousness of unspecified duration, subsequent encounter; R41.0 Disorientation, unspecified; H53.2 Diplopia; R45.1 Restlessness and agitation; S22.43XD Multiple fractures of ribs, bilateral, subsequent encounter for fracture with routine healing; S27.329D Contusion of lung, unspecified, subsequent encounter; S32.019D Unspecified fracture of first lumbar vertebra, subsequent encounter for fracture with routine healing; S32.029D Unspecified fracture of second lumbar vertebra, subsequent encounter for fracture with routine healing; S32.038D Other fracture of third lumbar vertebra, subsequent encounter for fracture with routine healing; S22.019D Unspecified fracture of first thoracic vertebra, subsequent encounter for fracture with routine healing; S82.891D Other fracture of right lower leg, subsequent encounter for closed fracture with routine healing; H11.32 Conjunctival hemorrhage, left eye; M19.91 Primary osteoarthritis, unspecified site; G47.30 Sleep apnea, unspecified; R09.02 Hypoxemia; R06.89 Other abnormalities of breathing; F17.210 Nicotine dependence, cigarettes, uncomplicated; E78.00 Pure hypercholesterolemia, unspecified; K59.03 Drug induced constipation; V29 Motorcycle rider injured in other and unspecified transport accidents; T79.8XXD Other early complications of trauma, subsequent encounter
CPT/HCPCS: 36415; 70450; 71045; 76705; 80053; 80074; 81000; 83605; 85025; 85610; 85730; 87040; 87088; 94640; 94660; 94664; 94760; 96361; 96374; 96375

== ENCOUNTER 2019-08-10 09:39 | Inpatient (IN) | payer OTHER, BC ==
[~2019-08-10] VITALS: Ht 185.4 cm; Wt 87.1 kg
[~2019-08-10 09:39] MED LIST changes: +ACET-77 PO; +ASPI-983 PO; +ESOM20CA58 PO; +FOLI1TAB24 PO; +LEVE500T6 PO; +MELA5TAB14 PO; +METH750T3 PO; +NAPR-1033 PO; +OXYC-529 PO
[2019-08-10] MEDS ORDERED: AMOX1TAB12 PO (10:23)
[2019-08-10] MEDS ORDERED: ALPR0.5T7 PO (10:23)
[2019-08-10] MEDS ORDERED: DOCU100C37 PO (10:23)
[2019-08-10] MEDS ORDERED: POLY17PO31 PO (10:23)
[2019-08-10] MEDS ORDERED: OXC5T PO ×2 (10:23→13:27)
[2019-08-10 10:45] VITALS: BP 143/65
[2019-08-10] MEDS ORDERED: fentaNYL INJECTION 100 MCG/2 ML AMP IV PRN (11:30)
[2019-08-10] MEDS ORDERED: ACETAMINOPHEN 500 MG TAB (TYLENOL) PO PRN ×2 (11:30→16:00)
[2019-08-10] MEDS ORDERED: ALPRAZolam 0.5 MG (XANAX) TAB PO PRN (11:30)
[2019-08-10] MEDS ORDERED: HALOPERIDOL 0.5 MG (HALDOL) TAB PO PRN (11:30)
[2019-08-10] MEDS ORDERED: NS IV 1000 ML 1,000 ML IV SCH (11:30)
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
[2019-08-10] MEDS ORDERED: MELA5CAP PO (13:27)
[2019-08-10] MEDS ORDERED: ASPI-983 PO (13:27)
[2019-08-10] MEDS ORDERED: METH750T3 PO (13:27)
[2019-08-10] MEDS ORDERED: NAPR220T66 PO (13:27)
--- NOTE | 2019-08-10 13:28 | NUR ---
REVIEWED MED REC IT WAS REPORTED UPON ADMISSION TO 4TH FLOOR. NOTE THE FOLLOWING CHANGES WERE MADE WHEN THE PATIENT DISCHARGED TO REHAB THAT ARE NOT REFLECTED ON THE HOME MED REC: START TAKING: XANAX 0.5MG BID PRN AUGMENTIN 875-125 BID X 10 DAYS COLACE 100MG BID OXYCODONE 5MG Q6H PRN MIRALAX 17GM DAILY STOP TAKING: ASPIRIN 81MG HS MELATONIN 5MG HS PRN METHOCARBAMOL 750MG Q6-8H PRN NAPROXEN 220MG 2 Q6H PRN OXYCODONE 5MG 1-2 Q4H PRN
[2019-08-10] MEDS: POLYETHYLENE GLYCOL 17 GM (MIRALAX) PACK PO SCH ×2 (13:31→21:30)
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
--- NOTE | 2019-08-10 15:27 | Physical Therapy Daily Note ---
PT Daily Note-Current Subjective Pt voices agreement to PT session. Pain Numeric Pain Scale: 0-No Pain Appearance Pt sitting up in transport chair outside with family present at beginning and end of session. All needs met. Mental Status Patient Orientation: Person, Place, Time, Eyes Open, Normal For Age Transfers SCALE: Activities may be completed with or without assistive devices. 3-Bblumevwis-qfyqyxq completes the activity by him/herself with no assistance from a helper. 5-Set-up or Clean-up Assistance-helper sets up or cleans up; patient completes activity. [place] assists only prior to or following the activity. 4-Supervision or Touching Assistance-helper provides verbal cues and/or touching/steadying and/or contact guard assistance as patient completes activity. Assistance may be provided throughout the activity or intermittently. 3-Partial/Moderate Assistance-helper does LESS THAN HALF the effort. [place] lifts, holds or supports trunk or limbs, but provides less than half the effort. 2-Substantial/Maximal Assistance-helper does MORE THAN HALF the effort. [place] lifts or holds trunk or limbs and provides more than half the effort. 7-Xpscdswmb-plsffp does ALL the effort. Patient does none of the effort to complete the activity. Or, the assistance of 2 or more helpers is required for the patient to complete the activity. If activity was not attempted, code reason: 7-Patient Refused. 9-Not Applicable-not attempted and the patient did not perform the activity before the current illness, exacerbation or injury. 10-Not Attempted due to Environmental Limitations-(lack of equipment, weather restraints, etc.). 88-Not Attempted due to Medical Conditions or Safety Concerns. Weight Bearing Right Lower Extremity: Right Weight Bearing/Tolerated Left Lower Extremity: Left Weight Bearing/Tolerated Exercises Seated Therapy Exercises: Biceps, Ankle pumps, Sit to stand, Long arc quads, Chair press-ups, Hip flexion, Kicking activity, Hamstring Curls, Reaching activity, Hip abd/add, Glut set, Tricep Seated Reps: 30 (all ex's performed to fatigue although noted pt is limited in some motions and c/o HS tightness and cramping and rib pain only during chair pushups) Treatments education, safety, strength, ROM, activity tolerance Assessment Current Status: Good Progress PT Enrobing Machine Corder Goals Skilled Nursing Goals PT Enrobing Machine Corder Goals Time Frame: Aug 24, 2019 Sit to Lying (QC): 6 Lying-Sitting on Side/Bed(QC): 6 Sit to Stand (QC): 6 Roll Left to Right (QC): 6 Chair/Hhh-ma-Evoyp Xfer(QC): 6 Car Transfer (QC): 6 Does the Patient Walk: Yes Distance: 1000' Walk 10 feet (QC): 6 Walk 10ft-Uneven Surface(QC): 6 Walk 50ft with 2 Turns (QC): 6 Walk 150 ft (QC): 6 Gait Assistive Device: Cane Large Base Quad, Cane Single Point Does the Pt use WC or Scooter?: No 4 Steps (QC): 5 Picking up an Object (QC): 4 (SBA without FWW) PT Plan Treatment/Plan Treatment Plan: Continue Plan of Care Treatment Plan: Bed Mobility, Education, Functional Activity Walter, Functional Strength, Gait, Safety, Therapeutic Exercise, Transfers Treatment Duration: Aug 17, 2019 Frequency: At least 5 of 7 days/Wk (IRF) Estimated Hrs Per Day: 1.5 hours per day Patient and/or Family Agrees t: Yes Safety Risks/Education Patient Education: Reviewed Precautions, Safety Issues Teaching Recipient: Patient, Family Teaching Methods: Discussion Response to Teaching: Verbalize Understanding Time/GCodes Time In: 245 Time Out: 306 Total Billed Treatment Time: 21 Total Billed Treatment 1 visit, EX x21 min YEIMY GUTHRIE CARAMEL MAKER Aug 10, 2019 15:27 POS
[2019-08-10] MEDS ORDERED: IBUPROFEN TABLET 200 MG TAB PO PRN (16:00)
[2019-08-10] MEDS ORDERED: ONDANSETRON 4 MG (ZOFRAN) ORAL DISSOLVE TAB PO PRN (16:00)
[2019-08-10] MEDS ORDERED: diphenhydrAMINE 25 MG TAB (BENADRYL) PO PRN (16:00)
[2019-08-10] MEDS ORDERED: DOCUSATE SODIUM 100 MG (COLACE) CAP PO PRN (16:00)
[2019-08-10] MEDS ORDERED: CALCIUM CARBONATE 500 MG (TUMS) TAB.CHEW PO PRN (16:00)
[2019-08-10] MEDS ORDERED: LOPERAMIDE 2 MG (IMODIUM) TABLET PO PRN (16:00)
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
[2019-08-10] MEDS: RT-ALBUTEROL SULF 2.5 MG/3 ML PRE-MIX VIAL INH SCH ×2 (16:55→18:11)
[2019-08-10 18:00] VITALS: BP 118/72
[2019-08-10] MEDS: AUGMENTIN 875 MG TAB (AMOXICILLIN/CLAVULANATE) PO SCH (18:29)
--- NOTE | 2019-08-10 19:20 | NUR ---
bedside report received from LAZ YANCEY, assume care of pt
[2019-08-10] MEDS ORDERED: NON-FORMULARY MEDICATION 1 EA EA (Levetiracetam 500 MG) PO SCH (21:00)
[2019-08-10] MEDS: DOCUSATE SODIUM 100 MG (COLACE) CAP PO SCH (21:30)
[2019-08-10] MEDS: SENNA W/DOCUSATE (SENOKOT S) TABLET PO SCH (21:30)
[2019-08-10] MEDS: LEVETIRACETAM 500 MG (KEPPRA) TAB PO SCH (21:40)
[2019-08-10] MEDS: PANTOPRAZOLE 20 MG TABLET (PROTONIX) PO SCH (21:40)
--- NOTE | 2019-08-10 21:40 | NUR ---
pt refused Colace, Senokot & miralax, pt up with standby assist & walker
[2019-08-11] MEDS: MELATONIN 3 MG TABLET PO PRN ×2 (01:10→20:22)
--- NOTE | 2019-08-11 01:10 | NUR ---
c/o pain & insomnia, pain level 8/10 on numeric scale, oxyir 5mg & melatonin 3mg given
--- NOTE | 2019-08-11 01:58 | NUR ---
resting quietly in bed, pain level 0/10 on flacc scale
--- NOTE | 2019-08-11 03:20 | NUR ---
UP IN GREAT ROOM BY DESK STATES CAN NOT SLEEP BUT DRINKING COFFEE
[2019-08-11 05:12] VITALS: BP 126/77
[2019-08-11 05:54] LABS: BASOPHILS % (AUTO) 1 % (0-10); EOSINOPHILS # (AUTO) 0.2 10^3/uL (0.0-0.3); EOSINOPHILS % (AUTO) 3 % (0-10); HEMATOCRIT 32 % (40-54); HEMOGLOBIN 10.8 G/DL (13.3-17.7); LYMPHOCYTES # (AUTO) 1.6 X 10^3 (1.0-4.0); LYMPHOCYTES % (AUTO) 18 % (12-44); MEAN CORPUSCULAR HEMOGLOBIN 32 PG (25-34); MEAN CORPUSCULAR HGB CONC 34 G/DL (32-36); MEAN CORPUSCULAR VOLUME 97 FL (80-99); MEAN PLATELET VOLUME 8.7 FL (7.4-10.4); MONOCYTES # (AUTO) 0.9 X 10^3 (0.0-1.0); MONOCYTES % (AUTO) 11 % (0-12); NEUTROPHILS # (AUTO) 5.8 X 10^3 (1.8-7.8); NEUTROPHILS % (AUTO) 68 % (42-75); PLATELET COUNT 472 10^3/uL (130-400); RED CELL DISTRIBUTION WIDTH 14.4 % (10.0-14.5); WHITE BLOOD COUNT 8.6 10^3/uL (4.3-11.0)
[2019-08-11] MEDS: RT-ALBUTEROL SULF 2.5 MG/3 ML PRE-MIX VIAL INH SCH ×2 (06:07→10:48)
[2019-08-11 06:17] LABS: ALANINE AMINOTRANSFERASE 99 U/L (0-55); ALKALINE PHOSPHATASE 137 U/L (40-136); BILIRUBIN,TOTAL 0.7 MG/DL (0.1-1.0); BUN/CREATININE RATIO 15; CALCIUM 9.9 MG/DL (8.5-10.1); CARBON DIOXIDE 22 MMOL/L (21-32); CHLORIDE 101 MMOL/L (98-107); CREATININE SERUM 0.81 MG/DL (0.60-1.30); GFR ESTIMATED > 60; GLUCOSE 126 MG/DL (70-105); POTASSIUM 4.3 MMOL/L (3.6-5.0); SODIUM 135 MMOL/L (135-145); TOTAL PROTEIN 7.2 GM/DL (6.4-8.2)
[2019-08-11] MEDS: AUGMENTIN 875 MG TAB (AMOXICILLIN/CLAVULANATE) PO SCH ×2 (06:53→17:10)
--- NOTE | 2019-08-11 06:58 | NUR ---
C/O PAIN LEVEL 8/10 ON NUMERIC SCALE OXYIR 5MG GIVEN
--- NOTE | 2019-08-11 07:25 | NUR ---
BEDSIDE REPORT GIVEN TO IMELDA YANCEY
[2019-08-11] MEDS: POLYETHYLENE GLYCOL 17 GM (MIRALAX) PACK PO SCH ×3 (08:06→20:20)
[2019-08-11] MEDS: DOCUSATE SODIUM 100 MG (COLACE) CAP PO SCH ×2 (08:06→20:20)
[2019-08-11] MEDS: SENNA W/DOCUSATE (SENOKOT S) TABLET PO SCH ×2 (08:06→20:20)
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
--- NOTE | 2019-08-11 08:54 | Physical Therapy Daily Note ---
PT Daily Note-Current Subjective pt in recliner pre-tx with in room. Pt agrees to PT this morning. Pt is currently having a headache type pain that he rate 9/10. RN in room and is aware and pain meds were given at 7am. Appearance Pt in room with post-tx with present for duration of therapy today. pt is going to walk with his at this time and all needs are met at this time. Mental Status Patient Orientation: Person, Place, Time, Situation boot right leg Transfers SCALE: Activities may be completed with or without assistive devices. 3-Kahayxftez-sgapmaa completes the activity by him/herself with no assistance from a helper. 5-Set-up or Clean-up Assistance-helper sets up or cleans up; patient completes activity. [place] assists only prior to or following the activity. 4-Supervision or Touching Assistance-helper provides verbal cues and/or touching/steadying and/or contact guard assistance as patient completes activity. Assistance may be provided throughout the activity or intermittently. 3-Partial/Moderate Assistance-helper does LESS THAN HALF the effort. [place] lifts, holds or supports trunk or limbs, but provides less than half the effort. 2-Substantial/Maximal Assistance-helper does MORE THAN HALF the effort. [place] lifts or holds trunk or limbs and provides more than half the effort. 7-Eamrrgwuk-cpcvky does ALL the effort. Patient does none of the effort to complete the activity. Or, the assistance of 2 or more helpers is required for the patient to complete the activity. If activity was not attempted, code reason: 7-Patient Refused. 9-Not Applicable-not attempted and the patient did not perform the activity before the current illness, exacerbation or injury. 10-Not Attempted due to Environmental Limitations-(lack of equipment, weather restraints, etc.). 88-Not Attempted due to Medical Conditions or Safety Concerns. Sit to Stand (QC): 5 Weight Bearing Right Lower Extremity: Right Weight Bearing/Tolerated Left Lower Extremity: Left Weight Bearing/Tolerated Gait Training Walk 10 feet (QC): 5 Walk 50 ft with 2 Turns(QC): 5 Walk 150 ft (QC): 5 Gait Assistive Device: FWW Pt is steady on his feet this morning and is walking with a slower more stable pace. Wheelchair Training Does the Pt Use a Wheelchair?: No Exercises Seated Therapy Exercises: Ankle pumps (L only), Long arc quads, Hip flexion Seated Reps: 20 (2sets 10 reps) Standing: Hip Abduction, Mini squats Standing Reps: 20 (2sets 10 reps) NuStep Minutes: 13 NuStep Workload: 3 Treatments Pt performed skilled ambulation training, balance training, LE strengthening/endurance exercises, Assessment Current Status: Good Progress Pt continues to be at risk of fall, however, he is ambulating more controlled this session and is more steady on his feet. Pt subjectively reports that he feels much better in his legs and head following therapy this morning. Patient has been ambulating on the floor on his own, nursing asks if he can do this. Patient will be allowed to be independent on the floor at this time because he is already doing it and he has not had any falls or bad unsteadiness at this time. PT Care Home Goals Care Home Goals PT Long Wall Mining Machine Helper Goals Time Frame: Aug 24, 2019 Sit to Lying (QC): 6 Lying-Sitting on Side/Bed(QC): 6 Sit to Stand (QC): 6 Roll Left to Right (QC): 6 Chair/Mwu-rk-Ycrhz Xfer(QC): 6 Car Transfer (QC): 6 Does the Patient Walk: Yes Distance: 1000' Walk 10 feet (QC): 6 Walk 10ft-Uneven Surface(QC): 6 Walk 50ft with 2 Turns (QC): 6 Walk 150 ft (QC): 6 Gait Assistive Device: Cane Large Base Quad, Cane Single Point Does the Pt use WC or Scooter?: No 4 Steps (QC): 5 Picking up an Object (QC): 4 (SBA without FWW) PT Plan Problem List Problem List: Activity Tolerance, Functional Strength, Safety, Balance, Gait, Transfer, Bed Mobility Treatment/Plan Treatment Plan: Continue Plan of Care Treatment Plan: Bed Mobility, Education, Functional Activity Walter, Functional Strength, Gait, Safety, Therapeutic Exercise, Transfers Treatment Duration: Aug 17, 2019 Frequency: At least 5 of 7 days/Wk (IRF) Estimated Hrs Per Day: 1.5 hours per day Patient and/or Family Agrees t: Yes Safety Risks/Education Patient Education: Gait Training, Transfer Techniques, Correct Positioning, Safety Issues Teaching Recipient: Patient Teaching Methods: Demonstration, Discussion Response to Teaching: Return Demonstration, Reinforcement Needed Time/GCodes Time In: 800 Time Out: 845 Total Billed Treatment Time: 45 Total Billed Treatment 1 visit GT 15' FA 30' PETER METCALF PT Aug 11, 2019 08:54 POS
--- NOTE | 2019-08-11 09:30 | NUR ---
DR. CARSON HERE TO SEE PATIENT. STATES SWELLING CAUSING PRESSURE ON CRANIAL NERVE AND RECOMMENDS EYE PATCH (FOR EITHER EYE) PRN BLURRY VISION OR PAIN.
[2019-08-11] MEDS: LEVETIRACETAM 500 MG (KEPPRA) TAB PO SCH ×2 (09:39→20:22)
--- NOTE | 2019-08-11 09:40 | Occupational Ther Daily Note ---
OT Current Status-Daily Note Subjective Pt alert, sitting in recliner. Pt was adjusting legs on FWW. Pt up ad spencer. Pt agrees to therapy, stating that he will do whatever it takes to get back to 100% but knows that it will take time for his brain to heal. Pt states that he attempted using eye patch then pain increased at back side of head so he took off and no dizziness was apparent. Mental Status/Objective Patient Orientation: Person, Place, Time, Situation ADL-Treatment Therapy Code Descriptions/Definitions Functional [place] Measure: 0=Not Assessed/NA 4=Minimal Assistance 1=Total Assistance 5=Supervision or Setup 2=Maximal Assistance 6=Modified [place] 3=Moderate Assistance 7=Complete IndependenceSCALE: Activities may be completed with or without assistive devices. 4-Zpwkyhwiad-mezioux completes the activity by him/herself with no assistance from a helper. 5-Set-up or Clean-up Assistance-helper sets up or cleans up; patient completes activity. [place] assists only prior to or following the activity. 4-Supervision or Touching Assistance-helper provides verbal cues and/or touching/steadying and/or contact guard assistance as patient completes activity. Assistance may be provided throughout the activity or intermittently. 3-Partial/Moderate Assistance-helper does LESS THAN HALF the effort. [place] lifts, holds or supports trunk or limbs, but provides less than half the effort. 2-Substantial/Maximal Assistance-helper does MORE THAN HALF the effort. [place] lifts or holds trunk or limbs and provides more than half the effort. 9-Mdorjvyyb-ixaifk does ALL the effort. Patient does none of the effort to complete the activity. Or, the assistance of 2 or more helpers is required for the patient to complete the activity. If activity was not attempted, code reason: 7-Patient Refused. 9-Not Applicable-not attempted and the patient did not perform the activity before the current illness, exacerbation or injury. 10-Not Attempted due to Environmental Limitations-(lack of equipment, weather restraints, etc.). 88-Not Attempted due to Medical Conditions or Safety Concerns. Other Treatment Pt ambulated with FWW to therapy gym. Completed 15 min at 25 tristan resistance on arm bike to increase strength and activity tolerance for daily functional tasks. Pt then began a sorting task to work on pill sorting, fine motor and depth perception when Dr. Espino (eye doctor) came to see pt. Pt ambulated back to room using FWW and sat in chair. All needs met in room. OT Short Term Goals Short Term Goals 1=Demonstrate adherence to instructed precautions during ADL tasks. 2=Patient will verbalize/demonstrate understanding of assistive devices/modifications for ADL. 3=Patient will improve strength/tolerance for activity to enable patient to perform ADL's. OT Fdc Goals Community Health Nurse Goals Time Frame: Aug 24, 2019 Eating (QC): 6 Oral Hygiene (QC): 6 Shower/Bathe Self (QC): 6 Upper Body Dressing (QC): 6 Lower Body Dressing (QC): 6 On/Off Footwear (QC): 6 Toileting Hygiene (QC): 6 Toilet/Commode Transfer (QC): 6 Additional Goals: 1-Demonstrate ADL Tasks, 2-Verbalize Understanding, 3- ImproveStrength/Walter 1=Demonstrate adherence to instructed precautions during ADL tasks. 2=Patient will verbalize/demonstrate understanding of assistive devices/modifications for ADL. 3=Patient will improve strength/tolerance for activity to enable patient to perform ADL's. OT Education/Plan Problem List/Assessment Assessment: Decreased UE Strength, Visual-Perceptual Deficit Discharge Recommendations Plan/Recommendations: Continue POC Treatment Plan/Plan of Care Patient would benefit from OT for education, treatment and training to promote independence in ADL's, mobility, safety and/or upper extremity function for ADL's. Plan of Care: ADL Retraining, Cognitive Retraining, Functional Mobility, Group Exercise/Act as Ind, UE Funct Exercise/Act Treatment Duration: Aug 24, 2019 Frequency: At least 5 of 7 days/Wk (IRF) Estimated Hrs Per Day: 1.5 hours per day Agreement: Yes Rehab Potential: Good Time/GCodes Start Time: 09:00 Stop Time: 09:30 Total Time Billed (hr/min): 30 Billed Treatment Time 1 visit-FA 1 (15 min) EX 1 (15 min) JEREMY STAPLES Aug 11, 2019 09:40 POS
--- NOTE | 2019-08-11 09:40 | NUR ---
DR. DANIELS HERE TO SEE PATIENT.
--- NOTE | 2019-08-11 10:27 | Occupational Ther Daily Note ---
OT Current Status-Daily Note Subjective Pt finished with physician and agrees to therapy. Pt stated that he is going to have to see more doctors, appears not to happy at this thought. Mental Status/Objective Patient Orientation: Person, Place, Time, Situation ADL-Treatment Therapy Code Descriptions/Definitions Functional [place] Measure: 0=Not Assessed/NA 4=Minimal Assistance 1=Total Assistance 5=Supervision or Setup 2=Maximal Assistance 6=Modified [place] 3=Moderate Assistance 7=Complete IndependenceSCALE: Activities may be completed with or without assistive devices. 4-Xgilswbkgz-yviumch completes the activity by him/herself with no assistance from a helper. 5-Set-up or Clean-up Assistance-helper sets up or cleans up; patient completes activity. [place] assists only prior to or following the activity. 4-Supervision or Touching Assistance-helper provides verbal cues and/or touching/steadying and/or contact guard assistance as patient completes activity. Assistance may be provided throughout the activity or intermittently. 3-Partial/Moderate Assistance-helper does LESS THAN HALF the effort. [place] lifts, holds or supports trunk or limbs, but provides less than half the effort. 2-Substantial/Maximal Assistance-helper does MORE THAN HALF the effort. [place] lifts or holds trunk or limbs and provides more than half the effort. 9-Ailrczpel-rgbzvl does ALL the effort. Patient does none of the effort to complete the activity. Or, the assistance of 2 or more helpers is required for the patient to complete the activity. If activity was not attempted, code reason: 7-Patient Refused. 9-Not Applicable-not attempted and the patient did not perform the activity before the current illness, exacerbation or injury. 10-Not Attempted due to Environmental Limitations-(lack of equipment, weather restraints, etc.). 88-Not Attempted due to Medical Conditions or Safety Concerns. Other Treatment Pt completed pill sorting with beads to work on fine motor, sequencing, visual perceptual skills for daily functional tasks. Placed 2# wt on pt's wrists during task, completed without difficulty. Pt then completed 10 word find words using different colored overlays, stating that using yellow then blue tinted overlays assisted with finding letters. Pt stated that he has dyslexia. Pt was able to find most of the words with cue for line word was in and was able to salvador straight line through word. Fine motor activity for depth perception and accuracy in placing small shapes in corresponding holes. Pt completed without difficulty. After therapy, pt ambulated back to room with family. All needs met in room. OT Short Term Goals Short Term Goals 1=Demonstrate adherence to instructed precautions during ADL tasks. 2=Patient will verbalize/demonstrate understanding of assistive devices/modifica tions for ADL. 3=Patient will improve strength/tolerance for activity to enable patient to perform ADL's. OT Executive Chairman Goals Executive Chairman Goals Time Frame: Aug 24, 2019 Eating (QC): 6 Oral Hygiene (QC): 6 Shower/Bathe Self (QC): 6 Upper Body Dressing (QC): 6 Lower Body Dressing (QC): 6 On/Off Footwear (QC): 6 Toileting Hygiene (QC): 6 Toilet/Commode Transfer (QC): 6 Additional Goals: 1-Demonstrate ADL Tasks, 2-Verbalize Understanding, 3- ImproveStrength/Walter 1=Demonstrate adherence to instructed precautions during ADL tasks. 2=Patient will verbalize/demonstrate understanding of assistive devices/modifications for ADL. 3=Patient will improve strength/tolerance for activity to enable patient to perform ADL's. OT Education/Plan Problem List/Assessment Assessment: Decreased UE Strength, Visual-Perceptual Deficit Discharge Recommendations Plan/Recommendations: Continue POC Treatment Plan/Plan of Care Patient would benefit from OT for education, treatment and training to promote independence in ADL's, mobility, safety and/or upper extremity function for A DL's. Plan of Care: ADL Retraining, Cognitive Retraining, Functional Mobility, Group Exercise/Act as Ind, UE Funct Exercise/Act Treatment Duration: Aug 24, 2019 Frequency: At least 5 of 7 days/Wk (IRF) Estimated Hrs Per Day: 1.5 hours per day Agreement: Yes Rehab Potential: Good Time/GCodes Start Time: 09:45 Stop Time: 10:15 Total Time Billed (hr/min): 30 Billed Treatment Time 1 visit-EX 2 (30 min) JEREMY STAPLES Aug 11, 2019 10:27 POS
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
--- NOTE | 2019-08-11 10:48 | Individualized Plan of Care ---
Individualized Plan of Care Rehab Nursing IPOC Order Admission Date Aug 10, 2019 at 10:45 Current Orders Orders Admission Order(Inpt,Obs,Sdc) (08/10/19 10:30) Vital Signs: Per Unit Policy ( 08,16,00 (08/10/19 10:30) Business Unit Manager-Inpt Rehab Con (08/10/19 10:30) Rehab Nursing Orders-Ipoc (08/10/19 10:30) Physical Therapy Rehab Orders (08/10/19 10:30) Occupational Therapy Rehab Ord (08/10/19 10:30) Speech Therapy Rehab Orders (08/10/19 10:30) Precautions (Aru) (08/10/19 10:30) Weekly Weight WEEK (08/10/19 10:30) Rehab-Intensity Of Therapy (08/10/19 10:30) Initiate Admission Nursing Pro .admission (08/10/19 10:30) Admission Arrival Bed Request (08/10/19 10:45) Transfer - Bed/Room/Location (08/10/19 11:12) Code/Resuscitation (08/10/19 11:20) General/Regular (08/10/19 Dinner) Alprazolam Tablet (Xanax Tablet) (08/10/19 11:30) Acetaminophen Tablet (Tylenol Tablet) (08/10/19 11:30) Albuterol Pre-Mix Nebs (Rt) (Proventil (08/10/19 15:00) Amoxicillin/Clavulanate Tablet (Augmenti (08/10/19 17:00) Docusate Sodium Capsule (Colace Capsule) (08/10/19 21:00) Haloperidol Tablet (Haldol Tablet) (08/10/19 11:30) Ns Iv 1000 Ml (Sodium Chloride 0.9%) (08/10/19 11:30) Pantoprazole Tablet (Protonix Tablet) (08/10/19 21:00) Polyethylene Glycol Powder Pkt (Miralax (08/10/19 13:00) Fentanyl Injection (Sublimaze Injection (08/10/19 11:30) Oxycodone Immediate Rel Tablet (Oxyir Ta (08/10/19 11:30) Bipap (Bilevel) Set Up (08/10/19 11:20) Consult Orthopedic Surgery (08/10/19 11:20) Mat Initiate Protocol (08/10/19 11:20) Svn Small Volume Nebulizer (08/10/19 11:20) Svn Small Volume Nebulizer (08/10/19 11:20) Patient Visit (08/10/19 ) Pt Eval Moderate Complexity (08/10/19 ) Gait Training, Ea 15 Min (08/10/19 ) Exercise Therap, Ea 15 Min (08/10/19 ) Consult Physician (08/10/19 14:28) Cbc With Automated Diff (08/11/19 05:00) Comprehensive Metabolic Panel (08/11/19 05:00) Patient Visit (08/10/19 ) Speech Sound Lang Comp (08/10/19 ) Patient Visit (08/10/19 ) Exercise Therap, Ea 15 Min (08/10/19 ) Acetaminophen Tablet (Tylenol Tablet) (08/10/19 16:00) Ibuprofen Tablet (Motrin Tablet) (08/10/19 16:00) Alprazolam Tablet (Xanax Tablet) (08/10/19 16:00) Calcium Carbonate Chew Tablet (Antacid C (08/10/19 16:00) Diphenhydramine Tablet (Benadryl Tablet) (08/10/19 16:00) Docusate Sodium Capsule (Colace Capsule) (08/10/19 16:00) Loperamide Tablet (Imodium Tablet) (08/10/19 16:00) Melatonin Tablet (Melatonin Tablet) (08/10/19 16:00) Ondansetron Oral Dissolve Tab (Zofran (08/10/19 16:00) Senna S Tablet (Senokot S Tablet) (08/10/19 21:00) (Nf) Levetiracetam (08/10/19 21:00) Ambulate 08,12,20 (08/10/19 17:53) Sequential Compression Device Q4H (08/10/19 17:53) Dvt/Vte Risk - Notifiy Physici Q4H (08/10/19 17:53) Edu Tobacco/Smoking Cessation .prn (08/10/19 17:53) Request Ot Evaluate & Treat (08/10/19 17:53) Levetiracetam Tablet (Keppra Tablet) (08/10/19 21:00) Consult Orthopedic Surgery (08/11/19 09:00) Ankle, Right, 3 Views (08/11/19 09:00) Oxycodone Immediate Rel Tablet (Oxyir Ta (08/11/19 09:15) Overnight Continous Pulse Ox (08/11/19 21:00) Mirtazapine Tablet (Remeron Tablet) (08/11/19 21:00) Patient Visit (08/11/19 ) Functional Activities, Ea 15 (08/11/19 ) Gait Training, Ea 15 Min (08/11/19 ) Nursing Communication (Order) (08/11/19 11:41) Rehab Nursing Orders: Ongoing Assess. of Cognitive Status, Ongoing Assess. of Function Status, Bowel Management, Bowel Training, Disease Management & Educaiton, DVT Prophylaxis, Fall Prevention, Fluid/Electrolyte/Nutrition Mgmt, Infection Prevention, Medication Management & Education, Management of Risks & Complications, Management of Skin Intergrity, Nutrition Management, Pain Management, Patient/Family Support, Safety Management Intensity of Therapy to be met Patient to be seen: Min.3h per day/5 of 7d PT IPOC Problem List: Activity Tolerance, Functional Strength, Safety, Balance, Gait, Transfer Treatment Plan: Continue Plan of Care Bed Mobility, Education, Functional Activity Walter, Functional Strength, Gait, Safety, Therapeutic Exercise, Transfers Treatment Duration: Aug 17, 2019 Frequency: At least 5 of 7 days/Wk (IRF) Estimated Hrs Per Day: 1.5 hours per day OT IPOC Problems: Decreased UE Strength, Visual-Perceptual Deficit OT Treatment, Training and Edu: Yes Plan of Care: ADL Retraining, Cognitive Retraining, Functional Mobility, Group Exercise/Act as Ind, UE Funct Exercise/Act Treatment Duration: Aug 24, 2019 Frequency: At least 5 of 7 days/Wk (IRF) Estimated Hrs Per Day: 1.[address] IPOC Speech Therapy Treatment Plan: Continue Plan of Care Treatment Duration: Aug 18, 2019 Frequency: 5 times per week Estimated Hrs Per Day: .5 hour per day Business Unit Manager/Case Mgmt Business Unit Manager/Case Managemen: Discharge Planning Dietitian/Hydro Electric Station Operator Dietitian/Hydro Electric Station Operator to monitor nutritional status and make changes and/or recommendations as needed and work with speech pathology on dietary upgrades as the occur. Physician IPOC Medical Issues being managed closely and that require the 24 hour availability of a physician: Close monitoring of delirium from subarachnoid hemorrhage with bilateral pneumonia and hypoxia Medical Issues: Bowel/Bladder Function, DVT Prophylaxis, Falls Precautions, Fluid/Electrolyte/Nutrition Balance, Pain Management Brief Synthesis of Preadmission Screen, Post-Admission Evaluation, and Therapy Evaluations: PT will work on ambulation in order to go back home and work OT will help regain independent ADLs Speech therapy will help with cognition deficit Medical Prognosis: Good Anticipated Length of Stay: 14 days MELANI BEE DO Aug 11, 2019 10:48 POS
--- NOTE | 2019-08-11 11:30 | Speech Therapy Daily Note ---
Speech Daily Progress Note Subjective Date Seen by Provider: Aug 11, 2019 Time Seen by Provider: 00:30 Patient states he didn't sleep well last night due to pain and was really tired today. Objective Patient completed a series of safety awareness cards with unsafe scenarios he may encounter when he returns home at 80% with 15% verbal cues. Assessment Assessment Current Status: Good Progress Treatment Plan Continue Plan of Care Speech Short Term Goals Short Term Goals Short Term Goals 1) The patient will complete memory tasks related to his daily needs at 90% or greater given 10% or less verbal and/or visual cues. 2) The patient will complete problem solving tasks related to his daily needs at 90% or greater given 10% or less verbal and/or visual cues. 3) The patient will complete safety awareness tasks related to his daily needs at 90% or greater given 10% or less verbal and/or visual cues. Speech Grocery Specialist Goals Grocery Specialist Goals The patient will improve cognitive-communication necessary for safety and daily living tasks with minimal assist. Speech-Plan Patient/Family Goals Patient/Family Goals: Patient plans on returning home with his family post rehab. Treatment Plan Speech Therapy Treatment Plan: Continue Plan of Care Patient showed good progress today. Treatment Duration: Aug 18, 2019 Frequency: 5 times per week Estimated Hrs Per Day: .5 hour per day Rehab Potential: Good Barriers to Learning: Patient has mild memory deficits Pt/Family Agrees to Plan: Yes Safety Risks/Education Teaching Recipient: Patient, Family Teaching Methods: Demonstration, Discussion Response to Teaching: Verbalize Understanding, Return Demonstration Education Topics Provided: Continued safety in his room Time Speech Therapy Time In: 11:00 Speech Therapy Time Out: 11:30 Total Billed Time: 30 Billed Treatment Time 1[address] Aug 11, 2019 11:30 POS
[2019-08-11] MEDS: ALPRAZolam 0.25 MG (XANAX) TAB PO PRN ×2 (12:27→20:23)
[2019-08-11 12:52] VITALS: BP 126/77
--- NOTE | 2019-08-11 13:00 | NUR ---
RIGHT ANKLE XRAY DONE. DR. DANIELS STATES TO LEAVE WALKING BOOT ON WHEN UP, BUT MAY TAKE OFF WHEN IN BED IF NEEDED FOR COMFORT.
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
[2019-08-11] MEDS ORDERED: RT-ALBUTEROL SULF 2.5 MG/3 ML PRE-MIX VIAL INH PRN (14:00)
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
--- NOTE | 2019-08-11 14:50 | Diagnostic Imaging Report ---
INDICATION: Right ankle fracture. TIME OF EXAM: 12:54 PM 3 views of the right ankle were obtained. The alignment is normal. Ankle mortise is well-maintained. Talar dome is smooth. There is a tiny osseous density just distal to the medial malleolus on AP view. This could represent a tiny avulsion, age indeterminate. There is some mild soft tissue swelling about the lateral ankle. IMPRESSION: Lateral soft tissue swelling. There is an age indeterminate avulsion from the medial malleolus. Dictated by: Dictated on workstation # [id number]
--- NOTE | 2019-08-11 15:02 | NUR ---
Pt was awake and pleasant durning nutrition assessment. Note I saw this pt when they were on 4th floor on 08/07. See previous dietary note for RD assessment. PES Statement: No nutrition diagnosis at this time (NO-1.1) due to pt's current PO intake and improved condition since 08/07 Intervention: Continue with current diet order of Regular diet. Monitor/Evaluate: PO Intake; Plan of Care; Hydration Status; Weight Status; Lab Values Tram Ladd, MS, RD, LD Ext. 133
--- NOTE | 2019-08-11 15:06 | Therapy Group Daily Note ---
Therapy Daily Group Note Patient Education Topic Home Safety, Other List Below (handwashing) Exercises LE Seated Exercise, UE Exercise Session Ratio (pt:therapist): 7:2 Goal of Session: Home Safety Strategies, UE/LE Strengthing Goal Met for this Session: Yes Pt Benefit of Group: Contributions to Others, F/U Use of Strategies @Home, Increased Functional Safety, Increased Functional Strength, Improved Cognition, Recognition of Peers, Socialization Other/Notes Pt ambulated to [facility] for OT/PT group. Group consisted of introductions (name, place born, favorite fall food), socialization, UE/LE seated exercises, educational topics of hand washing and home safety. Pt able to introduce self appropriately and actively listened to peers. Pt was able to complete exercises and tolerated well. Pt acknowledge understanding of educational topics by giving own personal strategies and stories pertaining to topic. Pt left group early due to increased headache. After therapy, pt lying in bed with call light/phone in reach. All needs met in room. Start Time: 13:00 Stop Time: 13:45 Total Billed Treatment Time: 45 Total Billed Treatment 1-GRP JEREMY STAPLES Aug 11, 2019 15:06 POS
--- NOTE | 2019-08-11 16:00 | NUR ---
HAS BEEN GOING OUTSIDE TO SMOKE WITH FAMILY. HE AMBULATES WITH WALKER AND A FAMILY MEMBER PUSHES A WHEELCHAIR IN CASE HE NEEDS IT. PATIENT IS COMPLAINING OF SEVERE HEADACHE TODAY AND BLURRY VISION. PT HAS OKAY'D HIM TO BE UP AD DANIELLE, BUT NOT TO LEAVE THE UNIT. PATIENT AGREEABLE TO THIS, BUT STATES HE FINDS CIGARETTES "SOOTHING". WILL START ON NICOTINE PATCH.
[2019-08-11] MEDS: NICOTINE 21 MG (NICODERM) PATCH TD SCH (17:10)
[2019-08-11 18:00] VITALS: BP 139/89
--- NOTE | 2019-08-11 18:00 | NUR ---
FAMILY HAD LEFT AND PATIENT TOOK A NICE NAP. STATES HEADACHE BETTER AND FEELING MUCH BETTER NOW.
[2019-08-11] MEDS: MIRTAZAPINE 15 MG (REMERON) TAB PO SCH (20:22)
[2019-08-11] MEDS: PANTOPRAZOLE 20 MG TABLET (PROTONIX) PO SCH (20:23)
[2019-08-12 06:00] VITALS: BP 136/88
[2019-08-12] MEDS: AUGMENTIN 875 MG TAB (AMOXICILLIN/CLAVULANATE) PO SCH ×2 (06:04→17:14)
[2019-08-12] MEDS ORDERED: NICOTINE 21 MG (NICODERM) PATCH TD SCH (09:00)
[2019-08-12] MEDS: DOCUSATE SODIUM 100 MG (COLACE) CAP PO SCH ×2 (09:30→21:47)
[2019-08-12] MEDS: SENNA W/DOCUSATE (SENOKOT S) TABLET PO SCH ×2 (09:30→21:47)
[2019-08-12] MEDS: POLYETHYLENE GLYCOL 17 GM (MIRALAX) PACK PO SCH ×3 (09:30→21:47)
[2019-08-12] MEDS: NICOTINE PATCH REMOVAL TP SCH (09:36)
[2019-08-12] MEDS: LEVETIRACETAM 500 MG (KEPPRA) TAB PO SCH ×2 (09:37→21:49)
[2019-08-12] MEDS: NICOTINE 21 MG (NICODERM) PATCH TD SCH (09:37)
--- NOTE | 2019-08-12 12:09 | Physical Therapy Daily Note ---
PT Daily Note-Current Subjective Pt denied pain. Pt reports he is getting stronger every day. Mental Status Patient Orientation: Person, Place, Situation Transfers SCALE: Activities may be completed with or without assistive devices. 7-Uuxhyslnke-mypleon completes the activity by him/herself with no assistance from a helper. 5-Set-up or Clean-up Assistance-helper sets up or cleans up; patient completes activity. [place] assists only prior to or following the activity. 4-Supervision or Touching Assistance-helper provides verbal cues and/or touching/steadying and/or contact guard assistance as patient completes activity. Assistance may be provided throughout the activity or intermittently. 3-Partial/Moderate Assistance-helper does LESS THAN HALF the effort. [place] lifts, holds or supports trunk or limbs, but provides less than half the effort. 2-Substantial/Maximal Assistance-helper does MORE THAN HALF the effort. [place] lifts or holds trunk or limbs and provides more than half the effort. 2-Dxcensxic-lurtoe does ALL the effort. Patient does none of the effort to complete the activity. Or, the assistance of 2 or more helpers is required for the patient to complete the activity. If activity was not attempted, code reason: 7-Patient Refused. 9-Not Applicable-not attempted and the patient did not perform the activity before the current illness, exacerbation or injury. 10-Not Attempted due to Environmental Limitations-(lack of equipment, weather restraints, etc.). 88-Not Attempted due to Medical Conditions or Safety Concerns. Weight Bearing Right Lower Extremity: Right Weight Bearing/Tolerated Left Lower Extremity: Left Weight Bearing/Tolerated Treatments Pt transfers mod (I). Pt amb with FWW and SBA x 500ft. Pt performed 3 way hip x 20 reps and side stepping x 3 trips in //bars. Pt back to bedside chair with call light and all needs met. Assessment Current Status: Good Progress Pt demonstrated good and safe mobility throughout treatment session. Pt LE weakness evident during dynamic balance activites. Pt would benefit from continued strenghtening to restore prior level of functional activity. PT Short Term Goals Short Term Goals Time Frame: Aug 18, 2019 Gait Distance Comment: 1000' Gait Assistive Device: FWW (SBA) PT Senior Living Goals Manager Of School Goals PT Senior Living Goals Time Frame: Sep 13, 2019 Sit to Lying (QC): 6 Lying-Sitting on Side/Bed(QC): 6 Sit to Stand (QC): 6 Roll Left to Right (QC): 6 Chair/Gys-zj-Danur Xfer(QC): 6 Car Transfer (QC): 6 Does the Patient Walk: Yes Distance: 1000' Walk 10 feet (QC): 6 Walk 10ft-Uneven Surface(QC): 6 Walk 50ft with 2 Turns (QC): 6 Walk 150 ft (QC): 6 Gait Assistive Device: Cane Large Base Quad, FWW, Cane Single Point Does the Pt use WC or Scooter?: No # of Steps: 12 1 Step (curb) (QC): 5 4 Steps (QC): 5 12 Steps (QC): 5 Picking up an Object (QC): 4 (SBA without FWW) PT Plan Treatment/Plan Treatment Plan: Continue Plan of Care Treatment Plan: Bed Mobility, Education, Functional Activity Walter, Functional Strength, Gait, Safety, Therapeutic Exercise, Transfers Treatment Duration: Aug 17, 2019 Frequency: At least 5 of 7 days/Wk (IRF) Estimated Hrs Per Day: 1.5 hours per day Patient and/or Family Agrees t: Yes Time/GCodes Time In: 830 Time Out: 900 Total Billed Treatment Time: 30 Total Billed Treatment 1, gait 15', ther ex 15' ALEX PERSAUD CPTA Aug 12, 2019 12:09 POS
--- NOTE | 2019-08-12 17:05 | NUR ---
0800 Pt requests to leave for [employer] run. Day Pass ok'd by Dr. Matthews. Daypass paperwork signed. Pt will be picked up by and leave near 11:30 or 12PM today. Leaves without incident. Returns in wheelchair pushed by . Pt smiling, voices, "thanks for letting me go." explains pt was able to purchase a toy for the toy drive and spend quality time with friends. Went home, took 2 hour nap, woke pt up to return to hospital. Pt happy, appears tired. Voices pain @ '5', pain medication given with supper. Will continue to monitor.
[2019-08-12 17:23] VITALS: BP 122/86
--- NOTE | 2019-08-12 20:00 | NUR ---
STATES FEELS IS PROGRESSING VERY WELL. AT BEDSIDE. ENJOYED DAY PASS AND NOW ASKING FOR ANOTHER PASS TOMORROW.
[2019-08-12] MEDS: MIRTAZAPINE 15 MG (REMERON) TAB PO SCH (21:48)
[2019-08-12] MEDS: PANTOPRAZOLE 20 MG TABLET (PROTONIX) PO SCH (21:49)
[2019-08-12] MEDS: MELATONIN 3 MG TABLET PO PRN (21:49)
--- NOTE | 2019-08-12 22:00 | NUR ---
HAS BEEN MEDICATED FOR SLEEP AND RIGHT PARIETAL HEADACHE. COOL WASHCLOTH TO HEAD. IS NOT PUTTING WALKING BOOT ON RIGHT LEG WHEN GETTING UP TO BATHROOM AND AFTER TELLING HIM TO CALL FOR HELP WHEN HE WAS READY TO SHOWER -- HE GOT UP AND SHOWERED ALONE. VERY IMPULSIVE AND EITHER FORGETFUL OR REFUSING TO DO NURSE REQUESTS. ADMITS TO GOING OUT TO SMOKE. STATES HE TOOK NICOTINE PATCH OFF EARLIER TODAY.
[2019-08-12] MEDS: ALPRAZolam 0.25 MG (XANAX) TAB PO PRN (22:41)
--- NOTE | 2019-08-13 02:00 | NUR ---
DAYLIGHT SAVINGS TIME - TIME ADJUSTMENT.
[2019-08-13 05:57] VITALS: BP 127/91
[2019-08-13] MEDS: AUGMENTIN 875 MG TAB (AMOXICILLIN/CLAVULANATE) PO SCH ×2 (06:09→17:16)
[2019-08-13] MEDS: NICOTINE PATCH REMOVAL TP SCH (08:59)
[2019-08-13] MEDS: DOCUSATE SODIUM 100 MG (COLACE) CAP PO SCH ×2 (09:00→21:29)
[2019-08-13] MEDS: POLYETHYLENE GLYCOL 17 GM (MIRALAX) PACK PO SCH ×3 (09:00→21:29)
[2019-08-13] MEDS: SENNA W/DOCUSATE (SENOKOT S) TABLET PO SCH ×2 (09:00→21:33)
[2019-08-13] MEDS: NICOTINE 21 MG (NICODERM) PATCH TD SCH (09:00)
--- NOTE | 2019-08-13 09:00 | NUR ---
Pt ambulating /c family off floor. Taking wheel chair. Addendum: 08/13/19 at 1602 by HUEY LUCIANO RN Pt returned 15 minutes later
[2019-08-13] MEDS: LEVETIRACETAM 500 MG (KEPPRA) TAB PO SCH ×2 (09:50→21:29)
--- NOTE | 2019-08-13 12:15 | NUR ---
Pt returned from being off floor with family.
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
[2019-08-13 17:05] VITALS: BP 123/83
[2019-08-13] MEDS: MIRTAZAPINE 15 MG (REMERON) TAB PO SCH (21:29)
[2019-08-13] MEDS: PANTOPRAZOLE 20 MG TABLET (PROTONIX) PO SCH (21:32)
--- NOTE | 2019-08-14 04:20 | NUR ---
PATIENT AMBULATING INDEPENDENTLY THROUGHOUT HALLWAYS DURING THE EVENING AND MORNING HOURS. PATIENT TOOK A SHOWER AND ADMITS TO DOING SO BY HIMSELF FOR 'SEVERAL' DAYS. DENIES ANY BLURRED VISION, HEADACHE, DISCOMFORT. GAIT APPEARS EVEN, STEADY. PATIENT IS NOT USING WALKING BOOT. STATES ,"I DON'T NEED IT." PATIENT MADE BED, CLEANED ROOM AND PICKED UP CLOTHING AND TOWELS FOLLOWING SHOWER. PATIENT IS ALERT AND ORIENTED, POURING HIMSELF COFFEE AT THIS TIME. PATIENT IS PLEASANT AND DENIES ANY NEEDS OR C/O. LABS ORDERED THIS AM. CONT TO MONITOR.
[2019-08-14 06:05] VITALS: BP 114/78
[2019-08-14 06:07] LABS: BASOPHILS # (AUTO) 0.1 10^3/uL (0.0-0.1); BASOPHILS % (AUTO) 1 % (0-10); EOSINOPHILS # (AUTO) 0.2 10^3/uL (0.0-0.3); EOSINOPHILS % (AUTO) 3 % (0-10); HEMATOCRIT 34 % (40-54); HEMOGLOBIN 11.4 G/DL (13.3-17.7); LYMPHOCYTES # (AUTO) 2.1 X 10^3 (1.0-4.0); LYMPHOCYTES % (AUTO) 24 % (12-44); MEAN CORPUSCULAR HEMOGLOBIN 33 PG (25-34); MEAN CORPUSCULAR HGB CONC 34 G/DL (32-36); MEAN CORPUSCULAR VOLUME 98 FL (80-99); MEAN PLATELET VOLUME 8.1 FL (7.4-10.4); MONOCYTES # (AUTO) 1.3 X 10^3 (0.0-1.0); MONOCYTES % (AUTO) 15 % (0-12); NEUTROPHILS # (AUTO) 4.8 X 10^3 (1.8-7.8); NEUTROPHILS % (AUTO) 57 % (42-75); PLATELET COUNT 549 10^3/uL (130-400); RED CELL DISTRIBUTION WIDTH 14.5 % (10.0-14.5); WHITE BLOOD COUNT 8.4 10^3/uL (4.3-11.0)
[2019-08-14] MEDS: AUGMENTIN 875 MG TAB (AMOXICILLIN/CLAVULANATE) PO SCH (06:09)
[2019-08-14 06:38] LABS: ALANINE AMINOTRANSFERASE 62 U/L (0-55); ALBUMIN 3.8 GM/DL (3.2-4.5); ALKALINE PHOSPHATASE 123 U/L (40-136); BILIRUBIN,TOTAL 0.6 MG/DL (0.1-1.0); BUN/CREATININE RATIO 15; CALCIUM 9.7 MG/DL (8.5-10.1); CARBON DIOXIDE 23 MMOL/L (21-32); CHLORIDE 105 MMOL/L (98-107); CREATININE SERUM 0.82 MG/DL (0.60-1.30); GFR ESTIMATED > 60; GLUCOSE 106 MG/DL (70-105); POTASSIUM 4.4 MMOL/L (3.6-5.0); SODIUM 139 MMOL/L (135-145)
--- NOTE | 2019-08-14 08:44 | Physical Therapy Daily Note ---
PT Daily Note-Current Subjective Pt ambulating out of rest room pre-tx. Pt agrees to PT this morning and states "I'm ready to get out of here today, I can't spend another day just sitting here". Pt reports no pain at this time. Appearance Pt in recliner post tx. Pt with call light, FWW, and tray table in reach with all needs met at this time. Pt reports headache during session, RN notified and getting pt meds. Mental Status Patient Orientation: Person, Place, Time, Situation boot on R foot. Transfers SCALE: Activities may be completed with or without assistive devices. 9-Yeaxdqsvhm-rfrgstc completes the activity by him/herself with no assistance from a helper. 5-Set-up or Clean-up Assistance-helper sets up or cleans up; patient completes activity. Linneus assists only prior to or following the activity. 4-Supervision or Touching Assistance-helper provides verbal cues and/or touching/steadying and/or contact guard assistance as patient completes activity. Assistance may be provided throughout the activity or intermittently. 3-Partial/Moderate Assistance-helper does LESS THAN HALF the effort. Linneus lifts, holds or supports trunk or limbs, but provides less than half the effort. 2-Substantial/Maximal Assistance-helper does MORE THAN HALF the effort. Linneus lifts or holds trunk or limbs and provides more than half the effort. 8-Emthymyof-mlrxnx does ALL the effort. Patient does none of the effort to complete the activity. Or, the assistance of 2 or more helpers is required for the patient to complete the activity. If activity was not attempted, code reason: 7-Patient Refused. 9-Not Applicable-not attempted and the patient did not perform the activity before the current illness, exacerbation or injury. 10-Not Attempted due to Environmental Limitations-(lack of equipment, weather restraints, etc.). 88-Not Attempted due to Medical Conditions or Safety Concerns. Transfers (B, C, W/C): 6 Roll Left to Right (QC): 88 (Pt indep for rolling to Left. Pt unable to roll to R secondary to pain.) Sit to Lying (QC): 6 Sit to Stand (QC): 6 Chair/Mld-at-Jpfwo Xfer(QC): 6 Car Transfer (QC): 6 on one attempt to stand to sit, Pt had complete posterior LOB where he had all of his weight on his heels, had no descent control and plopped down onto table. Weight Bearing Right Lower Extremity: Right Weight Bearing/Tolerated Left Lower Extremity: Left Weight Bearing/Tolerated Gait Training Distance: 1240' Walk 10 feet (QC): 6 Walk 50 ft with 2 Turns(QC): 6 Walk 150 ft (QC): 6 Walking 10ft/uneven surface-QC: 4 (SBA. Pt had one large LOB to the R with his first step on the uneven surface.) Gait Assistive Device: FWW Pt ambulates completely with a FWW maintaining business unit director on the back corners of the walker for balance>WB into the walker. Wheelchair Training Does the Pt Use a Wheelchair?: No Stair Training Stair Training: Handrails/: 2 handrails 4 Steps (QC): 4 (SBA) Stairs: Pattern: Reciprocal Balance Picking up an Object (QC): 6 Special Test Comments Re-score on Tinetti balance assessment is scored at gait: 06/22, balance: 07/26, total: Exercises NuStep Minutes: 15 NuStep Workload: 5 Treatments Pt performed bed mobility, transfer training, skilled ambulation training, LE endurance training, and education this date. Assessment Current Status: Fair Progress Pt demonstrates 2 major LOB that required him to stop what he is doing and regain his balance. Pt jose increased ambulation distance and had no increased pain during this session. PT Short Term Goals Short Term Goals Time Frame: Aug 18, 2019 Gait Distance Comment: 1000' Gait Assistive Device: FWW (SBA) PT Mcc Goals Mcc Goals PT Press Bucker Goals Time Frame: Sep 13, 2019 Sit to Lying (QC): 6 Lying-Sitting on Side/Bed(QC): 6 Sit to Stand (QC): 6 Roll Left to Right (QC): 6 Chair/Nwo-wf-Bejpj Xfer(QC): 6 Car Transfer (QC): 6 Does the Patient Walk: Yes Distance: 1000' Walk 10 feet (QC): 6 Walk 10ft-Uneven Surface(QC): 6 Walk 50ft with 2 Turns (QC): 6 Walk 150 ft (QC): 6 Gait Assistive Device: Cane Large Base Quad, FWW, Cane Single Point Does the Pt use WC or Scooter?: No # of Steps: 12 1 Step (curb) (QC): 5 4 Steps (QC): 5 12 Steps (QC): 5 Picking up an Object (QC): 4 (SBA without FWW) PT Plan Problem List Problem List: Activity Tolerance, Functional Strength, Safety, Balance, Gait, Transfer, Bed Mobility Treatment/Plan Treatment Plan: Continue Plan of Care Treatment Plan: Bed Mobility, Education, Functional Activity Walter, Functional Strength, Group Therapy, Gait, Safety, Therapeutic Exercise, Transfers Treatment Duration: Aug 17, 2019 Frequency: At least 5 of 7 days/Wk (IRF) Estimated Hrs Per Day: 1.5 hours per day Patient and/or Family Agrees t: Yes Safety Risks/Education Patient Education: Gait Training, Transfer Techniques, Steps, Correct Positioning, Safety Issues Teaching Recipient: Patient Teaching Methods: Demonstration, Discussion Response to Teaching: Return Demonstration, Reinforcement Needed Time/GCodes Time In: 800 Time Out: 845 Total Billed Treatment Time: 45 Total Billed Treatment 1 visit FA 30' GT 15' PETER METCALF PT Aug 14, 2019 08:44 POS
[2019-08-14] MEDS: LEVETIRACETAM 500 MG (KEPPRA) TAB PO SCH (08:48)
[2019-08-14] MEDS: SENNA W/DOCUSATE (SENOKOT S) TABLET PO SCH (08:50)
[2019-08-14] MEDS: NICOTINE PATCH REMOVAL TP SCH (08:50)
[2019-08-14] MEDS: POLYETHYLENE GLYCOL 17 GM (MIRALAX) PACK PO SCH (08:50)
[2019-08-14] MEDS: NICOTINE 21 MG (NICODERM) PATCH TD SCH (08:50)
[2019-08-14] MEDS: DOCUSATE SODIUM 100 MG (COLACE) CAP PO SCH (08:50)
[2019-08-14] MEDS ORDERED: OXC5T PO (09:00)
[2019-08-14] MEDS ORDERED: SENN-20 PO (09:00)
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
--- NOTE | 2019-08-14 12:37 | Therapy Team Discharge Summary ---
Therapy Discharge Summary Discharge Recommendations Date of Discharge 08-14-19 Therapy D/C Recommendations: Home w/ Family Support Occupational Therapy Pt. is discharging this date from inpt. therapy services. Pt. reports that he showered and dressed self this a.m. at independent level. Pt. also performed grooming tasks at independent level, eating, and toileting. Pt. states that he is ready to discharge. Pt. reports to this therapist that his vision is much better, but that he plans to follow up with Dr. Melendez after discharge. OT recommended shower chair for endurance and balance while in shower. No further AE or OT is warranted at this time. Visual-Perceptual Deficit PT Electric Freight Car Operator Goals Electric Freight Car Operator Goals PT Chcf Goals Time Frame: Sep 13, 2019 Roll Left to Right (QC): 6 Sit to Lying (QC): 6 Lying-Sitting on Side/Bed(QC): 6 Sit to Stand (QC): 6 Chair/Fkb-jq-Gcnrl Xfer(QC): 6 Car Transfer (QC): 6 Does the Patient Walk: Yes Distance: 1000' Walk 10 feet (QC): 6 Walk 10ft-Uneven Surface(QC): 6 Walk 50ft with 2 Turns (QC): 6 Walk 150 ft (QC): 6 Gait Assistive Device: Cane Large Base Quad, FWW, Cane Single Point Does the Pt use WC or Scooter?: No # of Steps: 12 1 Step (curb) (QC): 5 4 Steps (QC): 5 12 Steps (QC): 5 Picking up an Object (QC): 4 (SBA without FWW) OT Electric Freight Car Operator Goals Electric Freight Car Operator Goals Time Frame: Aug 24, 2019 Eating (QC): 6 (met) Oral Hygiene (QC): 6 (met) Shower/Bathe Self (QC): 6 (met) Upper Body Dressing (QC): 6 (met) Lower Body Dressing (QC): 6 (met) On/Off Footwear (QC): 6 (met) Toileting Hygiene (QC): 6 (met) Toilet/Commode Transfer (QC): 6 (met) Additional Goals: 1-Demonstrate ADL Tasks, 2-Verbalize Understanding, 3- ImproveStrength/Walter 1=Demonstrate adherence to instructed precautions during ADL tasks. 2=Patient will verbalize/demonstrate understanding of assistive devices/modifications for ADL. 3=Patient will improve strength/tolerance for activity to enable patient to perform ADL's. Speech Electric Freight Car Operator Goals Electric Freight Car Operator Goals The patient will improve cognitive-communication necessary for safety and daily living tasks with minimal assist. SEEMA RAMOS OT Aug 14, 2019 12:37 POS
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
[2019-08-14 13:31] VITALS: BP 114/78
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
--- NOTE | 2019-08-14 14:40 | NUR ---
Met with patient this morning, prior to discharge. Patient verbalize his eagerness to dismiss and return home. Patient states he has a FWW and bath chair, at home. No other medical equipment recommended, at this time. When verbalizing recommendation of outpatient therapy, patient stated he preferred a referral be made to [facility]. Referral made and appointment scheduled for July 21 at 11:00A. [facility] is to re-schedule with patient if an earlier appointment comes available.
== END 2019-08-14 11:45 | disposition home or self-care (01) | DRG 950 ==
PROVIDERS: ADMIT Internal Medicine; ATTEND Internal Medicine
DX: S06.6X9D Traumatic subarachnoid hemorrhage with loss of consciousness of unspecified duration, subsequent encounter (principal); S82.51XD Displaced fracture of medial malleolus of right tibia, subsequent encounter for closed fracture with routine healing; S93.491D Sprain of other ligament of right ankle, subsequent encounter; S22.43XD Multiple fractures of ribs, bilateral, subsequent encounter for fracture with routine healing; M06.9 Rheumatoid arthritis, unspecified; G47.30 Sleep apnea, unspecified; G47.00 Insomnia, unspecified; K59.03 Drug induced constipation; F17.210 Nicotine dependence, cigarettes, uncomplicated; M19.91 Primary osteoarthritis, unspecified site; E78.00 Pure hypercholesterolemia, unspecified; R94.5 Abnormal results of liver function studies; H50.9 Unspecified strabismus; H54.7 Unspecified visual loss; V23.4XXD Motorcycle driver injured in collision with car, pick-up truck or van in traffic accident, subsequent encounter
CPT/HCPCS: 36415; 73610; 80053; 85025; 94640; 94760; 94762

== ENCOUNTER → 2019-08-28 | Outpatient (CLI) | payer OTHER, BC ==
[~2019-08-28] MED LIST changes: +ALPR0.5T7 PO; +AMOX1TAB12 PO; +DOCU100C37 PO; +MELA5CAP PO; +NAPR220T66 PO; +OXC5T PO; +POLY17PO31 PO; +SENN-20 PO
== END ==
LOC: ORTHO 09:51
PROVIDERS: ATTEND Orthopaedic Surgery
DX: S93.401A Sprain of unspecified ligament of right ankle, initial encounter (principal); V29.69XA Unspecified motorcycle rider injured in collision with other motor vehicles in traffic accident, initial encounter; Y93.55 Activity, bike riding
CPT/HCPCS: 99203

== ENCOUNTER → 2019-09-18 | Outpatient (CLI) | payer OTHER, BC ==
--- NOTE | 2019-09-18 12:42 | Diagnostic Imaging Report ---
INDICATION: Knee pain. 3 views were obtained. FINDINGS: The alignment is normal. There are minimal degenerative changes. No fracture or dislocation. No joint effusion. Soft tissues are unremarkable. IMPRESSION: Mild degenerative changes otherwise unremarkable. Dictated by: Dictated on workstation # [id number]
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
== END ==
LOC: ORTHO 09:57
PROVIDERS: ATTEND Orthopaedic Surgery
DX: M17.11 Unilateral primary osteoarthritis, right knee (principal); M50.30 Other cervical disc degeneration, unspecified cervical region; M75.42 Impingement syndrome of left shoulder; M22.2X1 Patellofemoral disorders, right knee; V29.9XXA Motorcycle rider (driver) (passenger) injured in unspecified traffic accident, initial encounter
CPT/HCPCS: 72050; 73030; 73562; 99213

== ENCOUNTER → 2019-09-21 | Outpatient (CLI) | payer BC ==
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
== END ==
LOC: RAD 15:53
PROVIDERS: ATTEND Orthopaedic Surgery
DX: M50.11 Cervical disc disorder with radiculopathy, high cervical region (principal); M48.02 Spinal stenosis, cervical region
CPT/HCPCS: 72141

== ENCOUNTER → 2019-10-09 | Outpatient (CLI) | payer BC | LOC: ORTHO 10:20 | PROVIDERS: ATTEND Orthopaedic Surgery | DX: M25.512 Pain in left shoulder (principal) ==

== ENCOUNTER → 2019-11-06 | Outpatient (CLI) | payer BC ==
[~2019-11-06] MED LIST changes: -ACET-77 PO; +ACET-78 PO
== END ==
LOC: ORTHO 09:55
PROVIDERS: ATTEND Orthopaedic Surgery
DX: M25.512 Pain in left shoulder (principal)
CPT/HCPCS: 99213

== ENCOUNTER → 2019-11-07 | Outpatient (CLI) | payer BC ==
--- NOTE | 2019-11-07 14:06 | Diagnostic Imaging Report ---
PROCEDURE: MRI lumbar spine. TECHNIQUE: Multiplanar, multisequence MRI of the lumbar spine was performed without contrast. INDICATION: Low back pain. COMPARISON: There are no previous MRI examinations available for comparison. FINDINGS: The CT lumbar spine exam of 07/29/2019 did note a fracture of the right transverse process of L1 and the left transverse process of T4. There are also multiple rib fractures bilaterally. On the T2 parasagittal images of this exam the vertebral body heights and alignment are within normal limits. There is desiccation of discs at every level and there is narrowing of the disc space at L5-S1. This finding is similar to the prior exam. There is a disc bulge centrally at L5-S1. The disc indents the ventral aspect of the thecal sac and narrows the AP diameter to 10.6 mm. There is mild neural foraminal narrowing at this level. At the L4-L5 level there is a disc bulge centrally. The AP diameter of the thecal sac is narrowed to 10.4 mm. There is mild neural foraminal narrowing on the left at this level. There is a slight disc bulge centrally at L3-L4. The AP diameter of the thecal sac measures 14.8 mm. There is no significant neural foraminal narrowing. There is no evidence for spinal stenosis or nerve root encroachment at L1-L2 or L2-L3. There is no abnormal signal arising from the cord or other vertebral bodies to indicate an acute abnormality. The fracture of the right transverse process of L1 seen previously is not well appreciated on this study. There is no sign of a paraspinal mass. IMPRESSION: 1. There is moderate degenerative disc and bony disease at L4-L5 and L5-S1. There is no high-grade stenosis identified nor is there any significant neural foraminal narrowing at these two levels. 2. There is no sign of an acute bony abnormality or of a cord lesion. Dictated by: Dictated on workstation # [id number]
== END ==
LOC: RAD 11:40
PROVIDERS: ATTEND Orthopaedic Surgery Orthopaedic Surgery of the Spine
DX: M51.37 Other intervertebral disc degeneration, lumbosacral region (principal)
CPT/HCPCS: 72148

== ENCOUNTER → 2020-05-15 | Outpatient (CLI) | payer BC ==
[~2020-05-15] MED LIST changes: -OXYC-529 PO; +OXYC5TAB96 PO
== END ==
LOC: ORTHO 09:59
PROVIDERS: ATTEND Orthopaedic Surgery
DX: G56.22 Lesion of ulnar nerve, left upper limb (principal); G56.02 Carpal tunnel syndrome, left upper limb
CPT/HCPCS: 99213

== ENCOUNTER 2020-06-03 06:23 | Outpatient (CLI) | payer BC ==
[~2020-06-03] VITALS: Ht 185 cm; Wt 94.5 kg
[2020-06-03] MEDS ORDERED: CITA10TA7 PO (15:26)
== END 2020-06-03 15:41 | disposition home or self-care (01) ==
LOC: PREOP 06:23
PROVIDERS: ATTEND Orthopaedic Surgery
DX: Z01.818 Encounter for other preprocedural examination (principal)

== ENCOUNTER → 2020-06-04 | Outpatient (CLI) | payer BC ==
[~2020-06-04] MED LIST changes: +CITA10TA7 PO
[2020-06-04 12:02] LABS: BASOPHILS % (AUTO) 1 % (0-10); EOSINOPHILS # (AUTO) 0.1 10^3/uL (0.0-0.3); EOSINOPHILS % (AUTO) 1 % (0-10); HEMATOCRIT 46 % (40-54); HEMOGLOBIN 15.6 G/DL (13.3-17.7); LYMPHOCYTES # (AUTO) 2.6 X 10^3 (1.0-4.0); LYMPHOCYTES % (AUTO) 40 % (12-44); MEAN CORPUSCULAR HEMOGLOBIN 31 PG (25-34); MEAN CORPUSCULAR HGB CONC 34 G/DL (32-36); MEAN CORPUSCULAR VOLUME 92 FL (80-99); MEAN PLATELET VOLUME 8.6 FL (7.4-10.4); MONOCYTES # (AUTO) 0.7 X 10^3 (0.0-1.0); MONOCYTES % (AUTO) 11 % (0-12); NEUTROPHILS % (AUTO) 47 % (42-75); PLATELET COUNT 281 10^3/uL (130-400); RED CELL DISTRIBUTION WIDTH 13.6 % (10.0-14.5); WHITE BLOOD COUNT 6.4 10^3/uL (4.3-11.0)
[2020-06-04 12:27] LABS: BUN/CREATININE RATIO 17; CALCIUM 9.9 MG/DL (8.5-10.1); CARBON DIOXIDE 24 MMOL/L (21-32); CHLORIDE 104 MMOL/L (98-107); CREATININE SERUM 1.06 MG/DL (0.60-1.30); GFR ESTIMATED > 60; GLUCOSE 88 MG/DL (70-105); POTASSIUM 4.2 MMOL/L (3.6-5.0); SODIUM 138 MMOL/L (135-145)
== END ==
LOC: CARD 11:41
PROVIDERS: ATTEND Orthopaedic Surgery
DX: Z01.810 Encounter for preprocedural cardiovascular examination (principal); Z01.812 Encounter for preprocedural laboratory examination
CPT/HCPCS: 36415; 80048; 85025; 93005

== ENCOUNTER 2020-06-06 08:31 | Day surgery (SDC) | payer BC ==
[2020-06-06] VITALS (9 sets, daily range): BP systolic 122–153; BP diastolic 72–91
[~2020-06-06] VITALS: Ht 185 cm; Wt 94.5 kg
[2020-06-06] MEDS ORDERED: LACTATED RINGERS 1,000 ML IV PRN (08:51)
[2020-06-06] MEDS ORDERED: ceFAZolin 2 GM IV Premixed 50 ML IV ONE (09:00)
[2020-06-06] MEDS ORDERED: MIDAZOLAM 2 MG/2 ML (VERSED) VIAL ONE (09:11)
[2020-06-06] MEDS ORDERED: proPOfol 200 MG/20 ML (DIPRIVAN) VIAL IV ONE ×2 (09:11→09:31)
[2020-06-06] MEDS ORDERED: SEVOFLURANE (ULTANE) 15 ML INHAL SOLN ONE ×3 (09:11→10:30)
[2020-06-06] MEDS ORDERED: ONDANSETRON 4 MG/2 ML (SDV) Z0FRAN ONE (09:11)
[2020-06-06] MEDS ORDERED: LIDOCAINE PF 2% 5 ML (XYLOCAINE) VIAL ONE (09:11)
[2020-06-06] MEDS ORDERED: fentaNYL INJECTION 100 MCG/2 ML AMP ONE (09:11)
--- NOTE | 2020-06-06 09:12 | Progress Note-Pre Operative ---
Pre-Operative Progress Note H&P Reviewed The H&P was reviewed, patient examined and no changes noted. Date Seen by Provider: Jun 06, 2020 Time Seen by Provider: 09:04 Date H&P Reviewed: Jun 06, 2020 Time H&P Reviewed: 08:54 Pre-Operative Diagnosis: 1) cubital tunnel syndrome left elbow, 2) carpal tunnel syndrome left wrist ANN DANIELS MD Jun 06, 2020 09:12
[2020-06-06 09:17] LABS: BASOPHILS % (AUTO) 1 % (0-10); EOSINOPHILS # (AUTO) 0.1 10^3/uL (0.0-0.3); EOSINOPHILS % (AUTO) 1 % (0-10); HEMATOCRIT 42 % (40-54); HEMOGLOBIN 14.3 G/DL (13.3-17.7); LYMPHOCYTES # (AUTO) 2.1 X 10^3 (1.0-4.0); LYMPHOCYTES % (AUTO) 36 % (12-44); MEAN CORPUSCULAR HEMOGLOBIN 31 PG (25-34); MEAN CORPUSCULAR HGB CONC 34 G/DL (32-36); MEAN CORPUSCULAR VOLUME 91 FL (80-99); MEAN PLATELET VOLUME 8.9 FL (7.4-10.4); MONOCYTES # (AUTO) 0.9 X 10^3 (0.0-1.0); MONOCYTES % (AUTO) 15 % (0-12); NEUTROPHILS # (AUTO) 2.8 X 10^3 (1.8-7.8); NEUTROPHILS % (AUTO) 47 % (42-75); PLATELET COUNT 257 10^3/uL (130-400); RED CELL DISTRIBUTION WIDTH 13.8 % (10.0-14.5); WHITE BLOOD COUNT 5.9 10^3/uL (4.3-11.0)
[2020-06-06] MEDS ORDERED: NEO/POLY/BAC (NEOSPORIN) OINT 15 GM TUBE ONE (09:27)
[2020-06-06] MEDS ORDERED: BUP/EPI 0.5% 1:200,000 (MARCAINE) 10ML VIAL IJ ONE (09:27)
[2020-06-06 09:35] LABS: BUN/CREATININE RATIO 16; CALCIUM 9.7 MG/DL (8.5-10.1); CARBON DIOXIDE 23 MMOL/L (21-32); CHLORIDE 109 MMOL/L (98-107); CREATININE SERUM 0.94 MG/DL (0.60-1.30); GFR ESTIMATED > 60; GLUCOSE 94 MG/DL (70-105); POTASSIUM 4.1 MMOL/L (3.6-5.0); SODIUM 141 MMOL/L (135-145)
--- NOTE | 2020-06-06 11:11 | Discharge Inst-Simple/Standard ---
Discharge Inst-Standard Discharge Medications New, Converted or Re-Newed RX: Other Patient Instructions/Follow Up Plan of Care/Instructions/FU: Ice medial left elbow and volar aspect left wrist Elevation and sling left arm Patient has follow-up appointment on Sunday 06/10 Continue with oxycodone 5/325 one every 4 hours when necessary pain-patient has medication at home Activity as Tolerated: Yes Discharge Diet: No Restrictions ANN DANIELS MD Jun 06, 2020 11:11
[2020-06-06] MEDS ORDERED: oxyCODONE/APAP 5/325MG (PERCOCET 5) TABLET PO PRN (11:15)
--- NOTE | 2020-06-06 11:18 | Operative Report - Ortho ---
Operative Report Surgeon (s)/[employer] (s) Surgeon ANN DANIELS MD [employer] n/a Pre-Operative Diagnosis 1) cubital tunnel syndrome left elbow, 2) carpal tunnel syndrome left wrist Post-Operative Diagnosis same Operative Report Date of Procedure: Jun 06, 2020 Name of Procedure Performed: Ulnar nerve transposition left elbow and decompression of median nerve left wrist Description & Findings The patient was seen in the preoperative area and the left arm was marked. The patient had no questions or concerns. He is taken the operating room and placed on the OR table. He was given 2 g Ancef IV preoperatively. A tourniquet was placed on the left upper arm. After administration of general anesthesia the left hand and arm were prepped and draped in the usual sterile manner. The arm was exsanguinated with an Esmarch and the tourniquet was elevated to 250 mmHg. Timeout was performed. Curved incision was made over the volar aspect left wrist. This was taken down through subjacent tissue. Bleeders are cauterized. The fascia overlying the median nerve was identified in the proximal aspect of the wound and split. The nerve was identified and a Huntington was placed between the nerve and the transverse carpal ligament and the ligament was released from proximal to distal. After complete release no abnormalities were noted within the carpal tunnel. The nerve showed no abnormalities. A saline soaked 4 x 4 was placed in the wound. At this point the elbow was placed on towels. The elbow was flexed and the shoulder was externally rotated. The medial condyle was marked on skin. Skin incision was made posterior to the medial epicondyle. This a take down through subjacent tissue. Bleeders are cauterized. The ulnar nerve was identified proximal to the cubital tunnel and dissection was carried down to the flexor muscular fascia. The fascia was split. Ulnar nerve was mobilized anterior to the medial condyle. A flap was then fashioned off the medial condyle proximally 1 cm in width and 1 cm in length. The nerve was then moved anterior to the medial condyle in front of the sling and the sling was sutured with 2-0 Vicryl to the subjacent tissue at the area of the skin that was marked over the medial epicondyle. The nerve freely moved through the sling with motion of the elbow. There was no tension on the nerve. At this point the tourniquet was deflated after 29 minutes. Bleeders are cauterized in both wounds. Both wounds are irrigated. The elbow wound was closed with 2-0 Vicryl for subcutaneous tissues tissue and 4-0 nylon for skin. Wound was injected with 0.5 percent Marcaine with epinephrine 10 mL's. The wrist wound was irrigated with normal saline and closed with 4-0 nylon for the skin. This wound was also injected with 10 mL's of 0.5 percent Marcaine with epinephrine. The wounds were dressed with antibiotic ointment, Adaptic and 4 x 4's and then the forearm and wrist were wrapped with web roll and the elbow was wrapped with a Kerlix. A foreign splint was applied to the wrist and then wrapped with an Iban wrap. The elbow was also wrapped with an Iban wrap. The tourniquet was released there is immediate blood flow back to the fingers and thumb with good cap refill and good radial pulse. The arm was placed in a sling. There left to be some bunching errored tightness of the Iban wrap in the antecubital fossa cyst so this in the Kerlex was split with a scissors. The patient was then transferred to a stretcher than the recovery room in good condition, he tolerated procedure well. The patient was discharged. He has oxycodone at home for pain. Continue elevation and ice as well as a sling left arm. He has a follow-up ointment the office on 06/10. Call if he has any problems or questions. Tourniquet time29 minutes at 250 mmHg Blood loss20 mL's Drainsnone Complicationsnone n/a Anesthesia Type Gen. Estimated Blood Loss 20 mls Packing none. Specimen(s) collected/removed None ANN DANIELS MD Jun 06, 2020 11:18
--- NOTE | 2020-06-06 13:43 | Anesthesia-General Post-Op ---
General Patient Condition Mental Status/LOC: Same as Preop Cardiovascular: Satisfactory Nausea/Vomiting: Absent Respiratory: Satisfactory Pain: Controlled Complications: Absent Post Op Complications Complications None Follow Up Care/Instructions Patient Instructions None needed. Anesthesia/Patient Condition Patient Condition Patient is doing well, no complaints, stable vital signs, no apparent adverse anesthesia problems. No complications reported per nursing. CAROLINA GARCIA CRNA Jun 06, 2020 13:43
== END 2020-06-06 12:25 | disposition home or self-care (01) ==
LOC: SDC 08:31
PROVIDERS: ATTEND Orthopaedic Surgery
DX: G56.22 Lesion of ulnar nerve, left upper limb (principal); G56.02 Carpal tunnel syndrome, left upper limb; I10 Essential (primary) hypertension; G47.33 Obstructive sleep apnea (adult) (pediatric); M06.9 Rheumatoid arthritis, unspecified; F17.210 Nicotine dependence, cigarettes, uncomplicated; Z79.899 Other long term (current) drug therapy
CPT/HCPCS: 36415; 80048; 85025; 87081; 93005

== ENCOUNTER → 2020-06-10 | Outpatient (CLI) | payer BC | LOC: ORTHO 08:56 | PROVIDERS: ATTEND Orthopaedic Surgery | DX: G56.12 Other lesions of median nerve, left upper limb (principal); G56.22 Lesion of ulnar nerve, left upper limb ==

== ENCOUNTER → 2020-06-20 | Outpatient (CLI) | payer BC ==
[~2020-06-20] MED LIST changes: +ASPI-1238 PO; -ASPI-983 PO
== END ==
LOC: ORTHO 08:52
PROVIDERS: ATTEND Orthopaedic Surgery
DX: G56.02 Carpal tunnel syndrome, left upper limb (principal); G56.22 Lesion of ulnar nerve, left upper limb

== ENCOUNTER → 2020-07-03 | Outpatient (CLI) | payer BC | LOC: ORTHO 09:47 | PROVIDERS: ATTEND Orthopaedic Surgery | DX: G56.22 Lesion of ulnar nerve, left upper limb (principal) ==

== ENCOUNTER → 2023-05-25 | Outpatient (CLI) | payer BC, MEDICARE, OTHER ==
[~2023-05-25] MED LIST changes: -CITA10TA7 PO; +CITA10TA9 PO; -FOLI1TAB24 PO; +FOLI1TAB33 PO; +METH-732 PO; -METH750T3 PO; -OXYC5TAB96 PO; -POLY17PO31 PO; +POLY17PO54 PO
--- NOTE | 2023-05-25 14:48 | Diagnostic Imaging Report ---
EXAMINATION: Left shoulder 2 or more views HISTORY: Shoulder pain COMPARISON: 09/18/2019 FINDINGS: The alignment is normal. No fracture is seen. The acromioclavicular and glenohumeral joint spaces are normal. IMPRESSION: 1. No fracture. Dictated by: Dictated on workstation # [id number]
== END ==
LOC: ORTHO 11:11
PROVIDERS: ATTEND Orthopaedic Surgery
DX: M25.512 Pain in left shoulder (principal)
CPT/HCPCS: 73030; G0463; 99203

== ENCOUNTER → 2023-06-15 | Outpatient (CLI) | payer MEDICARE ==
--- NOTE | 2023-06-15 18:51 | Diagnostic Imaging Report ---
PROCEDURE: MRI lumbar spine. TECHNIQUE: Multiplanar, multisequence MRI of the lumbar spine was performed without contrast. INDICATION: Low back pain. COMPARISON: Lumbar spine MRI of 11/07/2019. FINDINGS: No spondylolisthesis has developed. No fracture or concerning marrow-replacing process. A small region of Modic type II endplate changes at L5-S1 is stable in appearance. No new Modic changes within the lumbar spine. No sacral insufficiency fracture. Distal thoracic cord is normal in appearance. L1-L2: No spinal canal or neuroforaminal stenosis. L2-L3: Unchanged mild disc bulging causing mild bilateral neuroforaminal stenosis without contact with the exiting nerve roots. No spinal canal stenosis. L3-L4: Small diffuse disc bulge is unchanged without significant intervertebral height loss. No spinal canal or neuroforaminal stenosis. L4-L5: Unchanged central disc protrusion which flattens ventral thecal sac but does not contact the nerve roots within the lateral recess. Xvqa-[id number] bilateral neuroforaminal stenosis is unchanged, but there is no contact with the exiting L4 nerve roots on either side. L5-S1: Small central disc protrusion is unchanged. This does not contact the nerve roots within the lateral recess. Intervertebral height loss contributes to moderate bilateral neuroforaminal stenosis that is unchanged. No contact of the nerve roots within the neuroforamen. IMPRESSION: 1. Multilevel degenerative changes are stable in appearance since 11/07/2019 exam. 2. No fracture has developed. Dictated by: Dictated on workstation # [id number]
== END ==
LOC: RAD 14:45
PROVIDERS: ATTEND Nurse Practitioner
DX: M54.50 Low back pain, unspecified (principal)
CPT/HCPCS: 72148

== ENCOUNTER → 2023-06-16 | Outpatient (CLI) | payer MEDICARE | LOC: ORTHO 10:46 | PROVIDERS: ATTEND Orthopaedic Surgery | DX: M75.102 Unspecified rotator cuff tear or rupture of left shoulder, not specified as traumatic (principal) | CPT/HCPCS: 99213 ==

== ENCOUNTER → 2023-07-12 | Outpatient (CLI) | payer MEDICARE ==
--- NOTE | 2023-07-12 16:28 | Diagnostic Imaging Report ---
EXAMINATION: Magnetic resonance imaging of the left shoulder without contrast. DATE: July 12, 2023. COMPARISON: Left shoulder radiographs May 25, 2023. HISTORY: 63-year-old male, left shoulder pain. TECHNIQUE: Magnetic Resonance Imaging sequences were performed of the shoulder without contrast. FINDINGS: ROTATOR CUFF, LIGAMENTS, TENDONS, AND MUSCLES: The supraspinatus, infraspinatus, teres minor, and subscapularis tendons and muscles are intact. There is normal rotator cuff muscle bulk and signal. LONG HEAD OF BICEPS: The biceps labral attachment and long head of the biceps tendon is intact. The long head of the biceps tendon is normally positioned within the bicipital groove. GLENOHUMERAL JOINT: The humeral head is well positioned relative to the glenoid. The labrum is grossly intact. There is no identified paralabral cyst. The articular cartilage is grossly intact. There is no joint effusion. ACROMIOCLAVICULAR JOINT: The acromioclavicular joint is normally aligned. The coracoclavicular and coracoacromial ligaments are intact. There are no degenerative changes of the acromioclavicular joint. BONE: There is no os acromiale. There is no Hill-Sachs deformity. There is no acute fracture, bone contusion, or evidence of osteonecrosis. BURSAE AND SOFT TISSUES: The bursae and soft tissue surrounding the shoulder are unremarkable. IMPRESSION: 1. Intact rotator cuff and proximal long head of biceps tendon. 2. Intact acromioclavicular joint. 3. Grossly intact labrum and unremarkable additional glenohumeral joint assessment. 4. No acute fracture, bone contusion, or other notable bone marrow signal abnormality. Dictated by: Dictated on workstation # [id number]
== END ==
LOC: RAD 09:01
PROVIDERS: ATTEND Orthopaedic Surgery
DX: M75.102 Unspecified rotator cuff tear or rupture of left shoulder, not specified as traumatic (principal)
CPT/HCPCS: 73221